=== PATIENT | male | born 1960 | race Caucasian/White ===

== ENCOUNTER 2020-11-01 08:49 | Inpatient (IN) | payer MEDICARE, SELFPAY ==
[2020-11-01] VITALS (17 sets, daily range): BP systolic 116–142; BP diastolic 62–81; PULSE 79–103; RESP 19–34; TEMP 36.1–37.2; O2SAT 88–996; BMI 25.6; BMI 25.9
--- NOTE | 2020-11-01 09:10 | EKG12_ITS ---
Test Reason : SOB Blood Pressure : / mmHG Vent. Rate : 092 BPM Atrial Rate : 092 BPM P-R Int : 162 ms QRS Dur : 080 ms QT Int : 476 ms P-R-T Axes : 045 000 048 degrees QTc Int : 588 ms Normal sinus rhythm Prolonged QT Abnormal ECG Confirmed by LONG JONES, ELIANA ([id number]), editor city [place]ITAL ([id number]) on 11/08/2020 10:28:30 AM Referred By: CHADWICK Confirmed By:ROBBY ALVES MD
--- NOTE | 2020-11-01 09:11 | CT_ITS ---
STUDY: CTA CHEST REASON FOR EXAM: Male, 60 years old. SOB, COUGH, CHILLS X 3 DAYS RADIATION DOSAGE (If Supplied By Facility): CTDIvol = ( 10.97 ) mGy, DLP = ( 494.89 ) mGycm TECHNIQUE: The examination was performed with the intravenous administration of IV 100mL Isovue-370. Post-processing of the angiographic images was performed, with multiplanar reformation and 3D reconstruction. Individualized dose optimization techniques were used for this CT. COMPARISON: None. FINDINGS: Normal enhancement of the main pulmonary artery and right and left pulmonary arteries. Normal enhancement of the bilateral peripheral pulmonary arteries. There is no demonstrated pulmonary embolism. Normal thoracic aorta and visualized great vessels. There is no demonstrated aortic dissection. Normal heart and pericardium. There are visualized mediastinal lymph nodes, which are within normal size limits, and with normal morphology. There are bilateral hilar lymph nodes, which are normal in size and morphology. Normal visualized trachea and bronchi. Multiple patchy areas of groundglass appearance in both lungs worse in the lower lobes. This is more pronounced in the right lower lobe and right middle lobe. Mild degree of emphysematous changes in both lungs worse in the upper lobes. Normal pleura. Normal chest wall structures. There are degenerative changes of thoracic spine. Small hiatal hernia. CT/CTA Chest W/WO Contrast IMPRESSION: Diffuse bilateral groundglass appearance in keeping with early pneumonic infiltrate involving both lungs worse in the lower lobes and more prominent on the right side. Pneumonic infiltrates related to Covid 19 should be ruled out. No evidence of pulmonary emboli. Electronically Signed: Octavio Jasso, at 10:49 EST , Service support ,
--- NOTE | 2020-11-01 09:12 | ED.VIS.GEN ---
History of Present Illness Chief Complaint: Shortness of Breath Informant: Patient Narrative: 60-year-old male with chief complaint of dyspnea. Patient went to urgent care today and was referred to the emergency department. He notes 3 days of chills and body aches. States he was having a cough but by taking OTC cold medicine that has improved. However he states that he continues to have shortness of breath. He states he has been having difficulty sleeping because of it. No chest pain. He notes some rhinorrhea that is very mild but does note a sore throat. He notes intermittent diarrhea for about 1 month. Patient admits to some mild anorexia. He reports that he is a daily smoker but for the past week has not been smoking. He denies any known medical problems. He had a heart catheterization in the past that was normal. Past Medical History - Allergies and Home Meds Allergies/Adverse Reactions: Allergies No Known Allergies Allergy (Verified 11/01/20 08:51) Past Medical History: None Surgical History: noncontributory Smoking Status: Current every day smoker Drugs: None - Family History Paternal Family History: Reports: Cancer - of esophageal cancer, Heart Disease - had bypass surgery Review of Systems General: Reports: Chills, Fever, Malaise, Subjective. Denies: Sweats Eyes: Denies: Visual changes - bilaterally, Diplopia ENT: Reports: Sore throat. Denies: Rhinorrhea Cardiovascular: Denies: Chest pain, Palpitations Respiratory: Reports: Dyspnea, Cough. Denies: Dyspnea on exertion Gastrointestinal: Denies: Abdominal pain, Nausea, Vomiting, Diarrhea, Melena, Hematochezia Genitourinary: Denies: Dysuria, Hematuria, Frequency Musculoskeletal: Reports: Myalgias. Denies: Back pain, Extremity Pain Skin: Denies: Rash, Wounds Neurological: Denies: Headache, Weakness, Numbness Physical Exam Vital Signs/Narrative: Vital Signs Temp Pulse Resp BP Pulse Ox 11/01/20 08:50 97.2 F L 103 H 24 H 116/62 88 Inital Vital Signs reviewed: Yes General: Well nourished, Well developed, No Acute Distress Head: Normocephalic, Atraumatic Eyes: Perrl, EOMI ENT: Moist mucous membranes, No rhinorrhea Neck: Supple, Nontender Cardiovascular: Regular rate, No murmurs, Tachycardia Respiratory: CTA bilaterally, Chest nontender, - - Patient is tachypneic but not in distress. Abdomen: Soft, Nontender, Nondistended, Normal bowel sounds Back: Nontender, Normal Inspection Extremities: Nontender, No edema Skin: Normal color, No rash Neurological: Alert, Oriented x3, Cranial nerves II-XII grossly intact, Normal Strength, Normal Sensation Psychological: Normal affect, Normal Mood Diagnostic/Tx/Re-eval Clinical Impression(s) from Imaging Studies Chest CTA 11/01/20 09:11 IMPRESSION: Diffuse bilateral groundglass appearance in keeping with early pneumonic infiltrate involving both lungs worse in the lower lobes and more prominent on the right side. Pneumonic infiltrates related to Covid 19 should be ruled out. No evidence of pulmonary emboli. Electronically Signed: Octavio Louisa, at 10:49 EST , Service support , Laboratory Last Values WBC 13.0 K/mm3 (4.4-11.0) H 11/01/20 09:39 RBC 4.14 M/mm3 (4.6-6.2) L 11/01/20 09:39 Hgb 13.6 g/dL (13.0-16.5) 11/01/20 09:39 Hct 38.6 % (40-54) L 11/01/20 09:39 MCV 93.2 fL (80-94) 11/01/20 09:39 MCH 32.9 pg (27.0-32.0) H 11/01/20 09:39 MCHC 35.2 g/dL (32-36) 11/01/20 09:39 RDW Std Deviation 44.6 fl (35.1-43.9) H 11/01/20 09:39 RDW Coeff of Billy 13.1 % (11.6-14.6) 11/01/20 09:39 Plt Count 218 K/mm3 (150-450) 11/01/20 09:39 MPV 11.7 fl (6.2-12.0) 11/01/20 09:39 Immature Gran % (Auto) 0.900 % (0.0-0.9) 11/01/20 09:39 Neut % (Auto) 87.3 % (47-70) H 11/01/20 09:39 Lymph % (Auto) 6.5 % (19-41) L 11/01/20 09:39 Parker % (Auto) 4.7 % (0-10) 11/01/20 09:39 Eos % (Auto) 0.4 % (0-5) 11/01/20 09:39 Baso % (Auto) 0.2 % (0-1) 11/01/20 09:39 Absolute Neuts (auto) 11.4 X10^3/uL (2.0-7.7) H 11/01/20 09:39 Absolute Lymphs (auto) 0.84 X10^3/uL (0.83-4.51) 11/01/20 09:39 Nucleated RBC % 0 % (0-5) 11/01/20 09:39 Sodium 137 mmol/L (136-145) 11/01/20 09:39 Potassium 3.1 mmol/L (3.5-5.1) L 11/01/20 09:39 Chloride 102 mmol/L (98-107) 11/01/20 09:39 Carbon Dioxide 28.0 mmol/L (21.0-32.0) 11/01/20 09:39 Anion Gap 7 (5-15) 11/01/20 09:39 BUN 13 mg/dL (7-18) 11/01/20 09:39 Creatinine 0.68 mg/dL (0.70-1.30) L 11/01/20 09:39 Estim Creat Clear Calc 123.63 ml/min 11/01/20 09:39 Est GFR (MDRD) Af Amer 153 mL/min (>60) 11/01/20 09:39 Est GFR (MDRD) Non-Af 126 mL/min (>60) 11/01/20 09:39 BUN/Creatinine Ratio 19.2 RATIO (10-20) 11/01/20 09:39 Glucose 122 mg/dL (74-106) H 11/01/20 09:39 Lactic Acid 1.2 mmol/L (0.4-1.9) 11/01/20 09:39 Calcium 8.4 mg/dL (8.5-10.1) L 11/01/20 09:39 Total Bilirubin 0.80 mg/dL (0.20-1.00) 11/01/20 09:39 AST 37 U/L (15-37) 11/01/20 09:39 ALT 24 U/L (16-61) 11/01/20 09:39 Alkaline Phosphatase 90 U/L (45-117) 11/01/20 09:39 Troponin I < 0.015 ng/mL (<0.045) 11/01/20 09:39 Total Protein 6.7 g/dL (6.4-8.2) 11/01/20 09:39 Albumin 2.7 g/dL (3.2-5.0) L 11/01/20 09:39 Globulin 4.0 g/dL (2.2-4.2) 11/01/20 09:39 Albumin/Globulin Ratio 0.7 RATIO (0.9-2.4) L 11/01/20 09:39 Procalcitonin 0.27 ng/mL (0.00-0.09) H 11/01/20 09:39 - EKG Initial EKG Interpretation: Sinus Rhythm - EKG demonstrates a normal sinus rhythm at a rate of 92 without concerning features of ectopy or ACS. - Medical Decision Making Patient's Covid antigen test is negative. His PCR is also negative. His white count is elevated at 13 and he has an elevated procalcitonin level. Lactic acid is normal. CTA demonstrates bilateral infiltrates. I still have a high suspicion for Covid and so I ordered the PCR. Because of the elevated white blood cell count is fever and elevated procalcitonin and the CTA findings I ordered Rocephin azithromycin. I think the patient would be best served inpatient evaluation and treatment at this time. He has been receiving supplemental oxygen at 3 L nasal cannula.. Patient will also receive a dose of Decadron. Plan is admission. ED Disposition - Plan for ED Patient: Diagnosis: Sepsis, Pneumonia, Hypokalemia
[2020-11-01] MEDS: 0.9% Normal Saline 1,000 ML 999 ML IV (09:41)
[2020-11-01] MEDS: Ketorolac 15 MG/ML Vial IV (09:41)
[2020-11-01 09:59] LABS: Absolute Lymphocyte Count 0.84 X10^3/uL (0.83-4.51); Absolute Neutrophil Count 11.4 X10^3/uL (2.0-7.7); Basophil# 0.03 X10^3/uL; Basophil% 0.2 % (0-1); Eosinophil# 0.05 X10^3/uL; Eosinophils% 0.4 % (0-5); Hematocrit 38.6 % (40-54); Hemoglobin 13.6 g/dL (13.0-16.5); Lymphocyte # 0.84 X10^3/ul (4.0); Lymphocyte % 6.5 % (19-41); Mean Corp Hgb Conc 35.2 g/dL (32-36); Mean Corpuscular Hgb 32.9 pg (27.0-32.0); Mean Corpuscular Volume 93.2 fL (80-94); Mean Platelet Vol. 11.7 fl (6.2-12.0); Monocyte# 0.61 X10^3/uL; Monocyte% 4.7 % (0-10); NRBC Flagged by Analyzer 0 % (0-5); Neutrophil # 11.37 X10^3/uL (2.7-7.7); Neutrophil % 87.3 % (47-70); Platelet Count 218 K/mm3 (150-450); RBC Distribution Width CV 13.1 % (11.6-14.6); RBC Distribution Width SD 44.6 fl (35.1-43.9); Red Blood Count 4.14 M/mm3 (4.6-6.2)
[2020-11-01 10:16] LABS: Lactic Acid 1.2 mmol/L (0.4-1.9)
[2020-11-01 10:17] LABS: ALB/GLOB Ratio 0.7 RATIO (0.9-2.4); AST(SGOT) 37 U/L (15-37); Alanine Aminotransfer ALT/SGPT 24 U/L (16-61); Albumin, Serum 2.7 g/dL (3.2-5.0); Alkaline Phosphatase 90 U/L (45-117); Anion Gap 7 (5-15); BUN 13 mg/dL (7-18); BUN/Creat Ratio 19.2 RATIO (10-20); Calcium,Total 8.4 mg/dL (8.5-10.1); Chloride 102 mmol/L (98-107); Creatinine, Serum 0.68 mg/dL (0.70-1.30); EST Glomerular Filtration Rate 126 mL/min (>60); Est Glom Filt Rate - Afr Amer 153 mL/min (>60); Estimated Creatinine Clearance 123.63 ml/min; Glucose 122 mg/dL (74-106); Potassium 3.1 mmol/L (3.5-5.1); Protein, Total 6.7 g/dL (6.4-8.2); Sodium Level 137 mmol/L (136-145)
[2020-11-01 10:18] LABS: Procalcitonin 0.27 ng/mL (0.00-0.09)
[2020-11-01] MEDS: Ceftriaxone 1 GM/50 ML BAG IV (11:26)
--- NOTE | 2020-11-01 11:32 | NURSING ---
MS2 COVID JULIA PNEUMONIA
[2020-11-01 11:50] LABS: Magnesium 2.3 mg/dL (1.6-2.6)
--- NOTE | 2020-11-01 12:26 | ED.RN ---
called and informed of pt admission
[2020-11-01] MEDS: dexAMETHasone 4 MG Tablet 6 MG PO (12:27)
--- NOTE | 2020-11-01 12:32 | HP.PCM_ITS ---
Problem List (1) Pneumonia due to COVID-19 virus Status: Acute (2) Sepsis Status: Acute (3) Pneumonia Status: Acute (4) Depression Status: Chronic (5) Anxiety Status: Chronic (6) Tobacco use disorder Status: Chronic (7) Sinus bradycardia Status: Chronic (8) Malaise and fatigue Status: Chronic (9) Hypokalemia Status: Acute History of Present Illness Date of Admission: 11/01/20 Chief Complaint: Shortness of breath for 3 days along with cough The patient is a 60 year old M with history of chronic smoking about a pack per day since teenage came to ED for shortness of breath/difficulty breathing and chills along with muscle aches for 3 days. Started having cough for about 3 weeks which initially was dry and now productive with clear sputum. Patient also complained of feeling shakes and chills. Triage vitals shows respiratory rate 24/min, pulse ox 88% on room air temperature 97.2 and heart rate 103 per note. Mild leukocytosis 37,000 with leukocytosis and mild lymphopenia. K3.1. Procalcitonin elevated 0.27. Lactic acid 1.2, magnesium 2.3. Rapid SARS-CoV-2 antigen negative and COVID-[address] chest individually reviewed and shows diffuse diffuse groundglass opacity predominantly in lower lobes, more prominent on the right side in pattern of COVID-19 pneumonia. ] Past Medical History Past Medical History (Chronic Problems): Chronic Problems Depression (Chronic) Anxiety (Chronic) Tobacco use disorder (Chronic) Sinus bradycardia (Chronic) Malaise and fatigue (Chronic) Allergies No Known Allergies Allergy (Verified 11/01/20 08:51) Home Medications: Ambulatory Orders Medication Instructions Recorded Citalopram [Celexa] 80 mg PO DAILY 11/01/20 Quetiapine Fumarate [Seroquel] 400 mg PO QHS 11/01/20 busPIRone [Buspar] 15 mg PO TID 11/01/20 Surgical History: noncontributory Smoking Status: Heavy Smoker (>10/day) Drugs: None - *Family History Paternal History Items: Cancer - of esophageal cancer, Heart Disease - had bypass surgery Review of Systems Constitutional: Reports: Chills, Fever HEENT: Denies: Head Aches, Sinus Congestion, Sinus Drainage Cardiovascular: Denies: Chest Pain, Palpitations Respiratory: Reports: Cough, Shortness of Breath, Shortness of breath upon exertion, Sputum production Gastrointestinal: Denies: Abdominal Pain, Nausea, Vomiting Genitourinary: Denies: Dysuria, Frequency, Hematuria Musculoskeletal: Denies: Joint Pain, Joint Tenderness Skin: Denies: Rash, Wounds Neurological: Denies: Numbness, Tingling, Focal weakness Psychiatric: Denies: Anxiety, Depression, Homicidal Ideations, Suicidal Ideatio ns Hematologic/ Lymphatic: Denies: Easy Bruising, Easy Bleeding VTE Information - Inpt Only VTE Present on Admission: No VTE Mechan Device Prophylaxis: None VTE Pharm Prophylaxis ordered?: Yes Patient Problems: Active and Suspected Problems Sepsis (Acute) Pneumonia (Acute) Pneumonia due to COVID-19 virus (Acute) Hypokalemia (Acute) - Physical Exam Vitals/I&O's: Vital Signs Temp Pulse Resp BP Pulse Ox 97.6 F L 91 33 H 140/74 H 94 11/01/20 12:21 11/01/20 12:21 11/01/20 12:21 11/01/20 12:21 11/01/20 12:21 Oxygen Flow Rate (L/min) 2 Oxygen Delivery Method Nasal Cannula Weight: 189 lb Body Mass Index (BMI) 25.6 Intake and Output for Last 24 Hours 10/30/20 10/31/20 11/01/20 23:59 23:59 23:59 Intake Total 1050 / 1050 Balance 1050 / 1050 General: Alert, Oriented x3, Cooperative HEENT: Atraumatic, PERRLA, EOMI, Normocephalic Neck: Supple, No JVD, Negative Carotid Bruits Lungs: Diminished - Air entry diminished in bilateral lower lobes, Rhonchi - Bilateral expiratory rhonchi present, Short of Breath, Tachypneic Cardiovascular: Regular rate, Regular Rhythm, Normal S1, Normal S2, No murmurs Abdomen: Bowel Sounds Present, Soft, Non Tender, Non-Distended, - - : No renal angle or suprapubic tenderness. Urine output dark yellow. Denies new lower urinary tract symptoms including dysuria Extremities: No edema, Capillary Refill Less than 3 Seconds Skin: No rashes, No breakdown Musculoskeletal: No Tenderness to Palpation of Joints or Extremities Neurological: Cranial nerves II-XII grossly intact Psych/Mental Status: Normal Affect, Appropriate Microbiology Past 72 Hours 11/01/20 09:21 Mucosa - Nose SARS-CoV-2 Antigen (Rapid) - Final 11/01/20 09:21 Mucosa - Nose Influenza Types A,B Direct FA (LINCOLN) - Final Laboratory Results 11/01/20 09:39: WBC 13.0 H, RBC 4.14 L, Hgb 13.6, Hct 38.6 L, MCV 93.2, MCH 32.9 H, MCHC 35.2, RDW Std Deviation 44.6 H, RDW Coeff of Billy 13.1, Plt Count 218, MPV 11.7, Immature Gran % (Auto) 0.900, Neut % (Auto) 87.3 H, Lymph % (Auto) 6.5 L, [place] % (Auto) 4.7, Eos % (Auto) 0.4, Baso % (Auto) 0.2, Absolute Neuts (auto) 11.4 H, Absolute Lymphs (auto) 0.84, Nucleated RBC % 0 11/01/20 09:39: Sodium 137, Potassium 3.1 L, Chloride 102, Carbon Dioxide 28.0, Anion Gap 7, BUN 13, Creatinine 0.68 L, Estim Creat Clear Calc 123.63, Est GFR (MDRD) Af Amer 153, Est GFR (MDRD) Non-Af 126, BUN/Creatinine Ratio 19.2, Glucose 122 H, Calcium 8.4 L, Total Bilirubin 0.80, AST 37, ALT 24, Alkaline Phosphatase 90, Troponin I < 0.015, Total Protein 6.7, Albumin 2.7 L, Globulin 4.0, Albumin/Globulin Ratio 0.7 L 11/01/20 09:39: Lactic Acid 1.2 11/01/20 09:39: Procalcitonin 0.27 H 11/01/20 09:39: Magnesium 2.3 11/01/20 11:21: COVID-19 (ELISE) Pending Current Medications Potassium Chloride (Potassium Chloride 20 Meq Tablet) 40 meq PO Q3H JOSE A Stop: 11/01/20 14:31 Assessment/Plan All Active Problems Sepsis (Acute) Pneumonia (Acute) Pneumonia due to COVID-19 virus (Acute) Hypokalemia (Acute) The patient is a 60 year old M with history of chronic smoking about a pack per day since teenage came to ED for shortness of breath/difficulty breathing and chills along with muscle aches for 3 days. Started having cough for about 3 weeks which initially was dry and now productive with clear sputum. Patient also complained of feeling shakes and chills. Triage vitals shows respiratory rate 24/min, pulse ox 88% on room air temperature 97.2 and heart rate 103 per note. Mild leukocytosis 37,000 with leukocytosis and mild lymphopenia. K3.1. Procalcitonin elevated 0.27. Lactic acid 1.2, magnesium 2.3. 1. Bilateral pneumonia, COVID-19 pneumonia based on clinical findings and CT chest: Patient has leukocytosis with lymphopenia. Patient is being admitted on Covid cohort floor. COVID-19 PCR is pending. Discussed with ID. CT chest individually reviewed and shows diffuse diffuse groundglass opacity predominantly in lower lobes, more prominent on the right side in pattern of COVID-19 pneumonia. Started on Decadron 6 mg, remdesivir as per protocol. Patient had 1 dose of ceftriaxone and azithromycin but it seems more viral pneumonia and therefore I will hold on further antibiotics and leave the deci domonique on ID. Respiratory panel is ordered. Urinary antigens, sputum culture and blood cultures are ordered. Incentive [facility] chest physi[facility]. Inflammatory markers CRP, D-dimer, ferritin and LDH ordered. Procalcitonin mildly elevated but not in the range of severe sepsis or septic shock. 2. Chronic cigarette smoking/nicotine. 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 CT chest negative for PE. Bronchodilator albuterol ordered. Rest as mentioned above. 3. Mild hypokalemia: Magnesium is normal. Serum phosphorus ordered. 4. Other comorbidities include anxiety and depression: Patient on citalopram 80 mg daily quetiapine 400 mg nightly and BuSpar 50 mg p.o. 3 times daily. Twelve-lead EKG shows QTc interval 588 ms, NC interval 162 millisecond. Previous EKG on 01 June 2012 showed QTC 393 ms. Hold citalopram and quetiapine. Continue risperidone. Repeat EKG daily FOR 3 DAYS DVT prophylaxis: Lovenox 30 mg subcu twice daily. discontinue if platelet count drops less than 50,000 or hemoglobin less than 8 g% Living will/advanced directive/end of life care: Patient does not have living will or advanced directive. After discussion of benefits/risks procedures involved with full code, DNR CC arrest and DNR CC, the patient opted for full code Patient does want artificial life support including intubation, tube feed, [place] tilator and/chest compression, central venous catheter, vasopressor and DC shock if needed Total time spent in [id number] encounter in discussion of advanced directive 16 minutes. Clinical Impression(s) from Imaging Studies Chest CTA 11/01/20 09:11 IMPRESSION: Diffuse bilateral groundglass appearance in keeping with early pneumonic infiltrate involving both lungs worse in the lower lobes and more prominent on the right side. Pneumonic infiltrates related to Covid 19 should be ruled out. No evidence of pulmonary emboli. Inpatient E&M: 51089 Init Hosp L3
--- NOTE | 2020-11-01 13:11 | NURSING ---
MED SURG 2, COVID PNEUMONIA JULIA
[2020-11-01 13:53] LABS: Ferritin 352 ng/mL (26-388); LDH 654 U/L (87-241); Phosphorus 2.4 mg/dL (2.5-4.9)
[2020-11-01 13:58] LABS: D-Dimer Quantitative (DVT/PE) 2.23 FEU/ug/m (0.27-0.49)
[2020-11-01] MEDS: busPIRone 15 MG TABLET PO (16:12)
[2020-11-01] MEDS: 0.9% Normal Saline 1,000 ML 75 ML IV (16:13)
[2020-11-01] MEDS: Enoxaparin 30 MG/0.3 ML Syringe SC ×2 (16:21→21:25)
[2020-11-01] MEDS: busPIRone 15 MG TABLET 30 MG PO (21:25)
[2020-11-02] VITALS (10 sets, daily range): BP systolic 129–147; BP diastolic 73–82; PULSE 76–97; RESP 14–20; TEMP 36.9–37.1; O2SAT 93–94
[2020-11-02] MEDS: MELATONIN 3 MG TABLET PO ×2 (01:13→21:14)
--- NOTE | 2020-11-02 05:55 | EKG12_ITS ---
Test Reason : AM EKG Blood Pressure : / mmHG Vent. Rate : 083 BPM Atrial Rate : 083 BPM P-R Int : 150 ms QRS Dur : 078 ms QT Int : 410 ms P-R-T Axes : 051 004 050 degrees QTc Int : 481 ms Normal sinus rhythm Prolonged QT Abnormal ECG Confirmed by RICK JONES, DAMASO ([id number]), manager editorial JAIME ARRIAZA ([id number]) on 11/09/2020 8:50:38 AM Referred By: JULIA Confirmed By:DAMASO CABRERA MD
[2020-11-02 06:39] LABS: Absolute Lymphocyte Count 1.02 X10^3/uL (0.83-4.51); Absolute Neutrophil Count 13.8 X10^3/uL (2.0-7.7); Basophil# 0.03 X10^3/uL; Basophil% 0.2 % (0-1); Eosinophils% 14.5 % (0-5); Hematocrit 36.1 % (40-54); Hemoglobin 12.3 g/dL (13.0-16.5); Lymphocyte # 1.02 X10^3/ul (4.0); Lymphocyte % 5.4 % (19-41); Mean Corp Hgb Conc 34.1 g/dL (32-36); Mean Corpuscular Hgb 31.8 pg (27.0-32.0); Mean Corpuscular Volume 93.3 fL (80-94); Mean Platelet Vol. 11.5 fl (6.2-12.0); Monocyte# 1.05 X10^3/uL; Monocyte% 5.6 % (0-10); NRBC Flagged by Analyzer 0 % (0-5); Neutrophil # 13.75 X10^3/uL (2.7-7.7); Neutrophil % 73.4 % (47-70); POSITIVE DIFFERENTIAL YES; POSITIVE MORPHOLOGY YES; Platelet Count 226 K/mm3 (150-450); RBC Distribution Width CV 13.1 % (11.6-14.6); Red Blood Count 3.87 M/mm3 (4.6-6.2); White Blood Count 18.7 K/mm3 (4.4-11.0)
[2020-11-02 06:47] LABS: Eosinophil# 2.72 X10^3/uL
[2020-11-02 06:48] LABS: Differential Indicated SCAN CRITERIA MET
[2020-11-02 07:13] LABS: ALB/GLOB Ratio 0.8 RATIO (0.9-2.4); AST(SGOT) 27 U/L (15-37); Alanine Aminotransfer ALT/SGPT 23 U/L (16-61); Albumin, Serum 2.5 g/dL (3.2-5.0); Alkaline Phosphatase 98 U/L (45-117); Anion Gap 9 (5-15); BUN 13 mg/dL (7-18); BUN/Creat Ratio 22.5 RATIO (10-20); Chloride 104 mmol/L (98-107); Creatinine, Serum 0.58 mg/dL (0.70-1.30); EST Glomerular Filtration Rate 152 mL/min (>60); Est Glom Filt Rate - Afr Amer 184 mL/min (>60); Estimated Creatinine Clearance 144.94 ml/min; Glucose 121 mg/dL (74-106); Protein, Total 5.5 g/dL (6.4-8.2); Sodium Level 136 mmol/L (136-145)
[2020-11-02] MEDS: Enoxaparin 30 MG/0.3 ML Syringe SC ×2 (10:39→21:12)
[2020-11-02] MEDS: dexAMETHasone 10 MG/ML Vial 6 MG IV (10:39)
[2020-11-02] MEDS: busPIRone 15 MG TABLET 30 MG PO ×2 (10:40→21:14)
--- NOTE | 2020-11-02 11:10 | PCM.HP.ID ---
Problem List (1) Pneumonia Status: Acute Reason for Consult: suspected covid Consulted by: Dr. Carlson History of Present Illness: The patient is a 60 year old M with heavy smoking history, presented yesterday with sx startting 10/30 with cough, dyspnea, chills, headache, aches, loss of appetite. No change in taste or smell. No n/v/d. Some clear sputum. Some chest pressure. No sick contacts, no covid exposures, lives with who has been feeling fine. Covid pcr and Ag neg. Resp panel neg. Started on dex and remdesivir, O2, feeling about the same this AM. Full ROS performed and neg except as noted above. - Medical History Past Medical History (Chronic Problems): Chronic Problems Depression (Chronic) Anxiety (Chronic) Tobacco use disorder (Chronic) Sinus bradycardia (Chronic) Malaise and fatigue (Chronic) Allergies/Adverse Reactions: Allergies No Known Allergies Allergy (Verified 11/01/20 08:51) Home Medications: Ambulatory Orders Medication Instructions Recorded Buspirone HCl [Buspar] 15 mg PO TID 11/01/20 Citalopram [Celexa] 80 mg PO DAILY 11/01/20 Quetiapine Fumarate [Seroquel] 400 mg PO QHS 11/01/20 - Social History Tobacco Use: cigarettes Vital Signs Temp Pulse Resp BP Pulse Ox 98.4 F 76 14 133/76 H 93 11/02/20 08:00 11/02/20 08:00 11/02/20 08:00 11/02/20 08:00 11/02/20 08:20 Oxygen Flow Rate (L/min) 2 Oxygen Delivery Method Nasal Cannula Weight: 85.729 kg Body Mass Index (BMI) 25.9 Microbiology Past 72 Hours 11/01/20 11:21 Respiratory Panel (PCR) - Final Interface Orders 11/01/20 Unknown Legionella Antigen - Final Urine, Clean Catch Streptococcus pneumoniae Antigen (M - Final 11/01/20 09:21 SARS-CoV-2 Antigen (Rapid) - Final Mucosa - Nose Influenza Types A,B Direct FA (LINCOLN) - Final Laboratory Tests Past 24 Hrs 11/01/20 11/01/20 11/01/20 09:39 09:39 09:39 WBC RBC Hgb Hct MCV MCH MCHC RDW Std Deviation RDW Coeff of Billy Plt Count MPV Immature Gran % (Auto) Neut % (Auto) Lymph % (Auto) [place] % (Auto) Eos % (Auto) Baso % (Auto) Absolute Neuts (auto) Absolute Lymphs (auto) Nucleated RBC % Diff Path Review D-Dimer Quant (PE/DVT) 2.23 H* Sodium Potassium Chloride Carbon Dioxide Anion Gap BUN Creatinine Estim Creat Clear Calc Est GFR (MDRD) Af Amer Est GFR (MDRD) Non-Af BUN/Creatinine Ratio Glucose Calcium Phosphorus 2.4 L Magnesium 2.3 Ferritin 352 Total Bilirubin AST ALT Alkaline Phosphatase Lactate Dehydrogenase 654 H C-React Prot Ext Range 234.00 H Total Protein Albumin Globulin Albumin/Globulin Ratio COVID-19 (ELISE) 11/01/20 11/02/20 11/02/20 11:21 06:30 06:30 WBC 18.7 H RBC 3.87 L Hgb 12.3 L Hct 36.1 L MCV 93.3 MCH 31.8 MCHC 34.1 RDW Std Deviation 45.0 H RDW Coeff of Billy 13.1 Plt Count 226 MPV 11.5 Immature Gran % (Auto) 0.900 Neut % (Auto) 73.4 H Lymph % (Auto) 5.4 L [place] % (Auto) 5.6 Eos % (Auto) 14.5 H Baso % (Auto) 0.2 Absolute Neuts (auto) 13.8 H Absolute Lymphs (auto) 1.02 Nucleated RBC % 0 Diff Path Review May foll D-Dimer Quant (PE/DVT) Sodium 136 Potassium 4.0 Chloride 104 Carbon Dioxide 23.0 Anion Gap 9 BUN 13 Creatinine 0.58 L Estim Creat Clear Calc 144.94 Est GFR (MDRD) Af Amer 184 Est GFR (MDRD) Non-Af 152 BUN/Creatinine Ratio 22.5 H Glucose 121 H Calcium 8.0 L Phosphorus Magnesium Ferritin Total Bilirubin 0.70 AST 27 ALT 23 Alkaline Phosphatase 98 Lactate Dehydrogenase C-React Prot Ext Range Total Protein 5.5 L Albumin 2.5 L Globulin 3.0 Albumin/Globulin Ratio 0.8 L COVID-19 (ELISE) Not Detected - Other Studies Radiology: [] reviewed Other Studies: [] Route of nutrition/ use of supplements: [] Nutritional Intake: [] IV Site: [] Tsai Catheter: [] - Physical Exam General: Alert, Oriented x3, Cooperative, No apparent distress HEENT: Atraumatic, PERRLA, EOMI Neck: Supple, No Nodes Lungs: Clear to auscultation, Diminished Cardiovascular: Regular rate, Regular Rhythm Abdomen: Soft, Non Tender, Non-Distended Extremities: No edema Skin: No rashes IV Site: Peripheral, without redness Musculoskeletal: No Tenderness to Palpation of Joints or Extremities Neurological: Cranial nerves II-XII grossly intact - Assessment/Plan Antibiotics: [] Assessment/Plan: [] Active and Suspected Problems Sepsis (Acute) Pneumonia (Acute) Pneumonia due to COVID-19 virus (Acute) Hypokalemia (Acute) suspected covid with hypoxia and lactic acidosis - sx started 10/30. Covid pcr and Ag neg here. Neg resp viral pcr panel. UAg neg. No lymphopenia. Mild PCT elevation. Elevated d-dimer, LDH, CRP. Normal ferritin. Normal trop. CT neg for PE but bilat groundglass infiltrate. Started on dex and remdesivir. Not feeling much better this Am. Will change dex to po. Sputum cx pending. Will follow, thank you
[2020-11-02 13:51] LABS: Pathologist Review Reviewed
--- NOTE | 2020-11-02 14:12 | PCM.PN.HOSP ---
Patient Problems: Active and Suspected Problems Sepsis (Acute) Pneumonia (Acute) Pneumonia due to COVID-19 virus (Acute) Hypokalemia (Acute) Reason for Visit: Follow-up for COVID-19 pneumonia Objective: No fever but patient is on 2 L of oxygen. Patient has severe anxiety and depression and requested for Seroquel. Physical exam General: Alert, Oriented x3, Cooperative HEENT: Atraumatic, PERRLA, EOMI, Normocephalic Neck: Supple, No JVD, Negative Carotid Bruits Lungs: Air entry diminished in bilateral lower lobes, no crepitations or rhonchi. Cardiovascular: Regular rate, Regular Rhythm, Normal S1, Normal S2, No murmurs Abdomen: Bowel Sounds Present, Soft, Non Tender, Non-Distended : No renal angle or suprapubic tenderness. Spontaneous voiding. Denies dysuria. Extremities: No edema, Capillary Refill Less than 3 Seconds Skin: No rashes, No breakdown Musculoskeletal: No Tenderness to Palpation of Joints or Extremities Neurological: Cranial nerves II-XII grossly intact Psych/Mental Status: Mild anxious, looks depressed. Vitals/I&O's: Vital Signs Temp Pulse Resp BP Pulse Ox 98.4 F 85 16 143/82 H 94 11/02/20 13:14 11/02/20 13:26 11/02/20 13:14 11/02/20 13:14 11/02/20 13:14 Oxygen Flow Rate (L/min) 2 Oxygen Delivery Method Nasal Cannula Weight: 189 lb 0.001 oz Body Mass Index (BMI) 25.9 Intake and Output for Last 24 Hours 10/31/20 11/01/20 11/02/20 23:59 23:59 23:59 Intake Total 2388.75 / 2388.75 1646.25 / 1646.25 Output Total 250 / 250 Balance 2388.75 / 2388.75 1396.25 / 1396.25 Microbiology Past 72 Hours 11/01/20 11:21 Interface Orders Respiratory Panel (PCR) - Final 11/01/20 Unknown Urine, Clean Catch Legionella Antigen - Final 11/01/20 Unknown Urine, Clean Catch Streptococcus pneumoniae Antigen (M - Final 11/01/20 09:21 Mucosa - Nose SARS-CoV-2 Antigen (Rapid) - Final 11/01/20 09:21 Mucosa - Nose Influenza Types A,B Direct FA ([facility]) - Final Laboratory Results 11/02/20 06:30: WBC 18.7 H, RBC 3.87 L, Hgb 12.3 L, Hct 36.1 L, MCV 93.3, MCH 31.8, MCHC 34.1, RDW Std Deviation 45.0 H, RDW Coeff of Billy 13.1, Plt Count 226, MPV 11.5, Immature Gran % (Auto) 0.900, Neut % (Auto) 73.4 H, Lymph % (Auto) 5.4 L, [place] % (Auto) 5.6, Eos % (Auto) 14.5 H, Baso % (Auto) 0.2, Absolute Neuts (auto) 13.8 H, Absolute Lymphs (auto) 1.02, Nucleated RBC % 0, Diff Path Review Reviewed 11/02/20 06:30: Sodium 136, Potassium 4.0, Chloride 104, Carbon Dioxide 23.0, Anion Gap 9, BUN 13, Creatinine 0.58 L, Estim Creat Clear Calc 144.94, Est GFR (MDRD) Af Amer 184, Est GFR (MDRD) Non-Af 152, BUN/Creatinine Ratio 22.5 H, Glucose 121 H, Calcium 8.0 L, Total Bilirubin 0.70, AST 27, ALT 23, Alkaline Phosphatase 98, Total Protein 5.5 L, Albumin 2.5 L, Globulin 3.0, Albumin/Globulin Ratio 0.8 L Current Medications Albuterol Sulfate (Albuterol Sulfate 8 Gm Inhaler (60 Puffs)) 2 puff INHALATION Q6H.RT JOSE A Buspirone HCl (Buspirone 15 Mg Tablet) 30 mg PO BID JOSE A Last Admin: 11/02/20 10:40 Dose: 30 mg Documented by: Dexamethasone (Dexamethasone 4 Mg Tablet) 6 mg PO DAILY JOSE A Stop: 11/10/20 10:01 Enoxaparin Sodium (Enoxaparin 30 Mg/0.3 Ml Syringe) 30 mg SC BID [facility] Last Admin: 11/02/20 10:39 Dose: 30 mg Documented by: Remdesivir 100 mg/ Sodium (Chloride) 250 mls @ 125 mls/hr IV DAILY JOSE A Stop: 11/05/20 11:59 Last Infusion: 11/02/20 12:56 Dose: Infused Documented by: Sodium Chloride () 250 mls @ 15 mls/hr IV .[id number] PRN PRN Reason: Saline Flush Sodium Chloride () 250 mls @ 15 mls/hr IV .[id number] PRN PRN Reason: Additional IVPB Infusion Melatonin (Melatonin 3 Mg Tablet) 3 mg PO QHS PRN PRN Reason: INSOMNIA Last Admin: 11/02/20 01:13 Dose: 3 mg Documented by: Quetiapine Fumarate (Quetiapine 25 Mg Tablet) 50 mg PO QHS JOSE A Sodium Chloride (0.9% Saline Lock 10 Ml Syringe) 10 - 40 ml IV UD PRN PRN Reason: SALINE FLUSH STROKE Vital Signs/Narrative: Vital Signs Temp Pulse Resp BP Pulse Ox 11/02/20 13:26 85 11/02/20 13:14 98.4 F 79 16 143/82 H 94 Medical Necessity - Tobacco Use Smoking Status: Heavy Smoker (>10/day) Tobacco Use: Cigarettes Assessment/Plan All Active Problems Sepsis (Acute) Pneumonia (Acute) Pneumonia due to COVID-19 virus (Acute) Hypokalemia (Acute) The patient is a 60 year old M with history of chronic smoking about a pack per day since teenage came to ED for shortness of breath/difficulty breathing and chills along with muscle aches for 3 days. Started having cough for about 3 weeks which initially was dry and now productive with clear sputum. Patient also complained of feeling shakes and chills. Triage vitals shows respiratory rate 24/min, pulse ox 88% on room air temperature 97.2 and heart rate 103 per note. Mild leukocytosis 37,000 with leukocytosis and mild lymphopenia. K3.1. Procalcitonin elevated 0.27. Lactic acid 1.2, magnesium 2.3. 1. Bilateral pneumonia, COVID-19 pneumonia based on clinical findings and CT chest: Patient has leukocytosis with lymphopenia. Patient is being admitted on Covid cohort floor. COVID-19 PCR is pending. Discussed with ID. CT chest individually reviewed and shows diffuse diffuse groundglass opacity predominantly in lower lobes, more prominent on the right side in pattern of COVID-19 pneumonia. 11/02: Seen by ID. Inflammatory markers are elevated, CRP 234, LDH 654. Procalcitonin 0.27. Troponin and lactic acid normal. Magnesium and phosphorus are normal. COVID-19 PCR negative. Respiratory panel negative. Seen by ID. Continue Decadron and remdesivir. 2. Chronic cigarette smoking/nicotine. 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 CT chest negative for PE. Bronchodilator albuterol ordered. Rest as mentioned above. 3. Mild hypokalemia: Magnesium is normal. Serum phosphorus ordered. 11/02: Repeat K is normal. 4. Other comorbidities include anxiety and depression: Patient on citalopram 80 mg daily quetiapine 400 mg nightly and BuSpar 15 mg p.o. 3 times daily. Twelve-lead EKG shows QTc interval 588 ms, [place] interval 162 millisecond. Previous EKG on 01 June 2012 showed QTC 393 ms. Hold citalopram and quetiapine. Continue risperidone. Repeat EKG daily FOR 3 DAYS 11/02: QTc interval 469 ms improving. To avoid antipsychotic withdrawal, started on low-dose Seroquel 50 mg daily. Patient was educated about side effects of high dose of Seroquel including prolonged QTc interval and related adverse effect of arrhythmia/sudden cardiac . DVT prophylaxis: Lovenox 30 mg subcu twice daily. discontinue if platelet count drops less than 50,000 or hemoglobin less than 8 g% Living will/advanced directive/end of life care: Patient does not have living will or advanced directive. After discussion of benefits/risks procedures involved with full code, DNR CC arrest and DNR CC, the patient opted for full code Patient does want artificial life support including intubation, tube feed, ventilator and/chest compression, central venous catheter, vasopressor and DC shock if needed Total time spent in [id number] encounter in discussion of advanced directive 16 minutes. Microbiology Past 72 Hours 11/01/20 11:21 Interface Orders Respiratory Panel (PCR) - Final 11/01/20 Unknown Urine, Clean Catch Legionella Antigen - Final 11/01/20 Unknown Urine, Clean Catch Streptococcus pneumoniae Antigen (M - Final 11/01/20 09:21 Mucosa - Nose SARS-CoV-2 Antigen (Rapid) - Final 11/01/20 09:21 Mucosa - Nose Influenza Types A,B Direct FA ([facility]) - Final Laboratory Results 11/02/20 06:30: WBC 18.7 H, RBC 3.87 L, Hgb 12.3 L, Hct 36.1 L, MCV 93.3, MCH 31.8, MCHC 34.1, RDW Std Deviation 45.0 H, RDW Coeff of Billy 13.1, Plt Count 226, MPV 11.5, Immature Gran % (Auto) 0.900, Neut % (Auto) 73.4 H, Lymph % (Auto) 5.4 L, [place] % (Auto) 5.6, Eos % (Auto) 14.5 H, Baso % (Auto) 0.2, Absolute Neuts (auto) 13.8 H, Absolute Lymphs (auto) 1.02, Nucleated RBC % 0, Diff Path Review Reviewed 11/02/20 06:30: Sodium 136, Potassium 4.0, Chloride 104, Carbon Dioxide 23.0, Anion Gap 9, BUN 13, Creatinine 0.58 L, Estim Creat Clear Calc 144.94, Est GFR (MDRD) Af Amer 184, Est GFR (MDRD) Non-Af 152, BUN/Creatinine Ratio 22.5 H, Glucose 121 H, Calcium 8.0 L, Total Bilirubin 0.70, AST 27, ALT 23, Alkaline Phosphatase 98, Total Protein 5.5 L, Albumin 2.5 L, Globulin 3.0, Albumin/Globulin Ratio 0.8 L Clinical Impression(s) from Imaging Studies Chest CTA 11/01/20 09:11 IMPRESSION: Diffuse bilateral groundglass appearance in keeping with early pneumonic infiltrate involving both lungs worse in the lower lobes and more prominent on the right side. Pneumonic infiltrates related to Covid 19 should be ruled out. No evidence of pulmonary emboli. Inpatient E&M: 87941 Subs Hosp L2
[2020-11-02] MEDS: Na Biphos/Potassium Phosphate PACKET 1 PACKET PO ×2 (15:43→21:14)
--- NOTE | 2020-11-02 16:25 | CASEMGMT ---
RN CM ASSESSMENT Intro role of CM to patient via phone. Pt is awake, alert and able to participate in assessment. He states he is independent, no care needs @ home and does not use ambulatory DME. States he plans to return home on discharge. Dagnosis: COVID 19 presumed. Test @ [facility] on 11/02/20 was negative PCP: Dr. Paredes Pharmacy: [facility] Pharm[facility] benefit: yes Insurance: [facility] [place]: Cleo Goncalves Living arrangements: states lives independently and no care needs. DME: states has a cane. No oxygen use @ home. Reviewed DME list- prefers [facility]. Pt dc goal: home DC Plan: anticipate home on dc. Rosalino BAUTISTA RN ACM
[2020-11-02] MEDS: Albuterol Sulfate 8 gm Inhaler (60 puffs) 2 PUFF INHALATION (21:12)
[2020-11-02] MEDS: QUEtiapine 25 MG Tablet 50 MG PO (21:13)
[2020-11-03] VITALS (10 sets, daily range): BP systolic 120–145; BP diastolic 67–82; PULSE 76–84; RESP 16–18; TEMP 36.6–37.1; O2SAT 92–94
--- NOTE | 2020-11-03 05:55 | EKG12_ITS ---
Test Reason : AM EKG Blood Pressure : / mmHG Vent. Rate : 080 BPM Atrial Rate : 080 BPM P-R Int : 160 ms QRS Dur : 078 ms QT Int : 404 ms P-R-T Axes : 049 012 046 degrees QTc Int : 465 ms Normal sinus rhythm Normal ECG Confirmed by RICK JONES, DAMASO ([id number]), assignment editor JAIME ARRIAZA ([id number]) on 11/09/2020 8:53:10 AM Referred By: JULIA Confirmed By:DAMASO CABRERA MD
[2020-11-03 07:11] LABS: Hematocrit 38.6 % (40-54); Hemoglobin 13.2 g/dL (13.0-16.5); Mean Corp Hgb Conc 34.2 g/dL (32-36); Mean Corpuscular Hgb 31.9 pg (27.0-32.0); Mean Corpuscular Volume 93.2 fL (80-94); Mean Platelet Vol. 11.3 fl (6.2-12.0); Platelet Count 265 K/mm3 (150-450); RBC Distribution Width CV 12.9 % (11.6-14.6); RBC Distribution Width SD 44.6 fl (35.1-43.9); Red Blood Count 4.14 M/mm3 (4.6-6.2); White Blood Count 20.3 K/mm3 (4.4-11.0)
[2020-11-03 07:44] LABS: ALB/GLOB Ratio 0.8 RATIO (0.9-2.4); AST(SGOT) 37 U/L (15-37); Alanine Aminotransfer ALT/SGPT 29 U/L (16-61); Albumin, Serum 2.6 g/dL (3.2-5.0); Alkaline Phosphatase 101 U/L (45-117); Anion Gap 8 (5-15); BUN 15 mg/dL (7-18); Calcium,Total 8.3 mg/dL (8.5-10.1); Chloride 100 mmol/L (98-107); Creatinine, Serum 0.65 mg/dL (0.70-1.30); EST Glomerular Filtration Rate 132 mL/min (>60); Est Glom Filt Rate - Afr Amer 159 mL/min (>60); Estimated Creatinine Clearance 129.33 ml/min; Globulin 3.3 g/dL (2.2-4.2); Glucose 101 mg/dL (74-106); Protein, Total 5.9 g/dL (6.4-8.2); Sodium Level 134 mmol/L (136-145)
[2020-11-03] MEDS: dexAMETHasone 4 MG Tablet 6 MG PO (08:06)
[2020-11-03] MEDS: busPIRone 15 MG TABLET 30 MG PO (08:06)
[2020-11-03] MEDS: Na Biphos/Potassium Phosphate PACKET 1 PACKET PO ×2 (08:07→21:44)
[2020-11-03] MEDS: Paroxetine 20 MG Tablet PO (13:00)
--- NOTE | 2020-11-03 15:06 | PCM.PN.HOSP ---
Patient Problems: Active and Suspected Problems Sepsis (Acute) Pneumonia (Acute) Pneumonia due to COVID-19 virus (Acute) Hypokalemia (Acute) Reason for Visit: Follow-up for acute COVID-19 pneumonia. Objective: No fever or chills. Patient has shortness of breath on exertion although he is good at rest. On 2 L of oxygen at rest. Patient slept good yesterday after Seroquel. Physical exam General: Alert, Oriented x3, Cooperative HEENT: Atraumatic, PERRLA, EOMI, Normocephalic Oral: No Gingival or Mucosal Lesions/ Ulcerations Neck: Supple, No JVD, Negative Carotid Bruits Lungs: Air entry diminished in bilateral lung bases. No crepitations or rhonchi. Cardiovascular: Regular rate, Regular Rhythm, Normal S1, Normal S2, No murmurs Abdomen: Bowel Sounds Present, Soft, Non Tender, Non-Distended : No renal angle tenderness. No suprapubic tenderness. Spontaneous voiding, clear urine. Extremities: No edema, Capillary Refill Less than 3 Seconds Skin: No rashes, No breakdown Musculoskeletal: No Tenderness to Palpation of Joints or Extremities Neurological: Cranial nerves II-XII grossly intact, Deep Tendon Reflexes 2+/4 and Symmetrical, Neuro grossly intact Psych/Mental Status: Mild anxious and restless. Vitals/I&O's: Vital Signs Temp Pulse Resp BP Pulse Ox 98.7 F 81 18 135/81 H 94 11/03/20 08:03 11/03/20 08:03 11/03/20 08:03 11/03/20 08:03 11/03/20 08:03 Oxygen Flow Rate (L/min) 2 Oxygen Delivery Method Nasal Cannula Weight: 189 lb 0.001 oz Body Mass Index (BMI) 25.9 Intake and Output for Last 24 Hours 11/01/20 11/02/20 11/03/20 23:59 23:59 23:59 Intake Total 2388.75 / 2388.75 1646.25 / 1646.25 750 / 750 Output Total 250 / 250 450 / 450 Balance 2388.75 / 2388.75 1396.25 / 1396.25 300 / 300 Microbiology Past 72 Hours 11/01/20 09:32 Blood Culture (Wb) - Left Forearm Blood Culture - Preliminary No growth in 48 hours. 11/01/20 09:39 Blood Culture (Wb) - Anticubital Left Blood Culture - Preliminary No growth in 48 hours. 11/02/20 03:05 Sputum, Expectorated/Coughed Gram Stain - Final 11/02/20 03:05 Sputum, Expectorated/Coughed Respiratory Culture - Preliminary Appears to be normal respiratory roberto. Further studies to follow. 11/01/20 11:21 Interface Orders Respiratory Panel (PCR) - Final 11/01/20 Unknown Urine, Clean Catch Legionella Antigen - Final 11/01/20 Unknown Urine, Clean Catch Streptococcus pneumoniae Antigen (M - Final 11/01/20 09:21 Mucosa - Nose SARS-CoV-2 Antigen (Rapid) - Final 11/01/20 09:21 Mucosa - Nose Influenza Types A,B Direct FA ([facility]) - Final Laboratory Results 11/03/20 06:50: WBC 20.3 H, RBC 4.14 L, Hgb 13.2, Hct 38.6 L, MCV 93.2, MCH 31.9, MCHC 34.2, RDW Std Deviation 44.6 H, RDW Coeff of Billy 12.9, Plt Count 265, MPV 11.3 11/03/20 06:50: Sodium 134 L, Potassium 4.0, Chloride 100, Carbon Dioxide 26.0, Anion Gap 8, BUN 15, Creatinine 0.65 L, Estim Creat Clear Calc 129.33, Est GFR (MDRD) Af Amer 159, Est GFR (MDRD) Non-Af 132, BUN/Creatinine Ratio 23.0 H, Glucose 101, Calcium 8.3 L, Total Bilirubin 0.80, AST 37, ALT 29, Alkaline Phosphatase 101, Total Protein 5.9 L, Albumin 2.6 L, Globulin 3.3, Albumin/Globulin Ratio 0.8 L Current Medications Albuterol Sulfate (Albuterol Sulfate 8 Gm Inhaler (60 Puffs)) 2 puff INHALATION Q6H.RT [facility] Last Admin: 11/02/20 21:12 Dose: 2 puff Documented by: Buspirone HCl (Buspirone 15 Mg Tablet) 15 mg PO TID [facility] Last Admin: 11/03/20 12:57 Dose: Not Given Documented by: Dexamethasone (Dexamethasone 4 Mg Tablet) 6 mg PO DAILY [facility] Stop: 11/10/20 10:01 Last Admin: 11/03/20 08:06 Dose: 6 mg Documented by: Enoxaparin Sodium (Enoxaparin 30 Mg/0.3 Ml Syringe) 30 mg SC BID [facility] Last Admin: 11/03/20 08:07 Dose: Not Given Documented by: Remdesivir 100 mg/ Sodium (Chloride) 250 mls @ 125 mls/hr IV DAILY [facility] Stop: 11/05/20 11:59 Last Infusion: 11/03/20 14:32 Dose: Infused Documented by: Sodium Chloride () 250 mls @ 15 mls/hr IV .[id number] PRN PRN Reason: Saline Flush Sodium Chloride () 250 mls @ 15 mls/hr IV .[id number] PRN PRN Reason: Additional IVPB Infusion Melatonin (Melatonin 3 Mg Tablet) 3 mg PO QHS PRN PRN Reason: INSOMNIA Last Admin: 11/02/20 21:14 Dose: 3 mg Documented by: Paroxetine HCl (Paroxetine 20 Mg Tablet) 20 mg PO DAILY [facility] Last Admin: 11/03/20 13:00 Dose: 20 mg Documented by: Potassium Phos/Sodium Phos (Na Biphos/Potassium Phosphate Packet) 1 packet PO BID [facility] Stop: 11/04/20 15:01 Last Admin: 11/03/20 08:07 Dose: 1 packet Documented by: Quetiapine Fumarate (Quetiapine 25 Mg Tablet) 50 mg PO QHS [facility] Last Admin: 11/02/20 21:13 Dose: 50 mg Documented by: Sodium Chloride (0.9% Saline Lock 10 Ml Syringe) 10 - 40 ml IV UD PRN PRN Reason: SALINE FLUSH Medical Necessity - Tobacco Use Smoking Status: Heavy Smoker (>10/day) Tobacco Use: Cigarettes Assessment/Plan All Active Problems Sepsis (Acute) Pneumonia (Acute) Pneumonia due to COVID-19 virus (Acute) Hypokalemia (Acute) The patient is a 60 year old M with history of chronic smoking about a pack per day since teenage came to ED for shortness of breath/difficulty breathing and chills along with muscle aches for 3 days. Started having cough for about 3 weeks which initially was dry and now productive with clear sputum. Patient also complained of feeling shakes and chills. Triage vitals shows respiratory rate 24/min, pulse ox 88% on room air temperature 97.2 and heart rate 103 per note. Mild leukocytosis 37,000 with leukocytosis and mild lymphopenia. K3.1. Procalcitonin elevated 0.27. Lactic acid 1.2, magnesium 2.3. 1. Bilateral pneumonia, COVID-19 pneumonia based on clinical findings and CT chest: Patient has leukocytosis with lymphopenia. Patient is being admitted on Covid cohort floor. COVID-19 PCR is pending. Discussed with ID. CT chest individually reviewed and shows diffuse diffuse groundglass opacity predominantly in lower lobes, more prominent on the right side in pattern of COVID-19 pneumonia. 11/02: Seen by ID. Inflammatory markers are elevated, CRP 234, LDH 654. Procalcitonin 0.27. Troponin and lactic acid normal. Magnesium and phosphorus are normal. COVID-19 PCR negative. Respiratory panel negative. Seen by ID. Continue Decadron and remdesivir. 11/03: Patient has leukocytosis 20,000 with lymphopenia. Low albumin 2.6. 2. Chronic cigarette smoking/nicotine. 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 CT chest negative for PE. Bronchodilator albuterol ordered. Rest as mentioned above. 3. Mild hypokalemia: Magnesium is normal. Serum phosphorus ordered. 11/02: Repeat K is normal. 4. Other comorbidities include anxiety and depression: Patient on citalopram 80 mg daily quetiapine 400 mg nightly and BuSpar 15 mg p.o. 3 times daily. Twelve-lead EKG shows QTc interval 588 ms, [place] interval 162 millisecond. Previous EKG on 01 June 2012 showed QTC 393 ms. Hold citalopram and quetiapine. Continue risperidone. Repeat EKG daily FOR 3 DAYS 11/02: QTc interval 469 ms improving. To avoid antipsychotic withdrawal, started on low-dose Seroquel 50 mg daily. Patient was educated about side effects of high dose of Seroquel including prolonged QTc interval and related adverse effect of arrhythmia/sudden cardiac . 11/03: QTc interval improved. 430 ms. Patient agreed for Paxil and started on Paxil 20 mg daily. DVT prophylaxis: Lovenox 30 mg subcu twice daily. discontinue if platelet count drops less than 50,000 or hemoglobin less than 8 g% Living will/advanced directive/end of life care: Patient does not have living will or advanced directive. After discussion of benefits/risks procedures involved with full code, DNR CC arrest and DNR CC, the patient opted for full code Patient does want artificial life support including intubation, tube feed, ventilator and/chest compression, central venous catheter, vasopressor and DC shock if needed Total time spent in [id number] encounter in discussion of advanced directive 16 minutes. Microbiology Past 72 Hours 11/01/20 09:32 Blood Culture (Wb) - Left Forearm Blood Culture - Preliminary No growth in 48 hours. 11/01/20 09:39 Blood Culture (Wb) - Anticubital Left Blood Culture - Preliminary No growth in 48 hours. 11/02/20 03:05 Sputum, Expectorated/Coughed Gram Stain - Final 11/02/20 03:05 Sputum, Expectorated/Coughed Respiratory Culture - Preliminary Appears to be normal respiratory roberto. Further studies to follow. 11/01/20 11:21 Interface Orders Respiratory Panel (PCR) - Final 11/01/20 Unknown Urine, Clean Catch Legionella Antigen - Final 11/01/20 Unknown Urine, Clean Catch Streptococcus pneumoniae Antigen (M - Final 11/01/20 09:21 Mucosa - Nose SARS-CoV-2 Antigen (Rapid) - Final 11/01/20 09:21 Mucosa - Nose Influenza Types A,B Direct FA ([facility]) - Final Laboratory Results 11/03/20 06:50: WBC 20.3 H, RBC 4.14 L, Hgb 13.2, Hct 38.6 L, MCV 93.2, MCH 31.9, MCHC 34.2, RDW Std Deviation 44.6 H, RDW Coeff of Billy 12.9, Plt Count 265, MPV 11.3 11/03/20 06:50: Sodium 134 L, Potassium 4.0, Chloride 100, Carbon Dioxide 26.0, Anion Gap 8, BUN 15, Creatinine 0.65 L, Estim Creat Clear Calc 129.33, Est GFR (MDRD) Af Amer 159, Est GFR (MDRD) Non-Af 132, BUN/Creatinine Ratio 23.0 H, Glucose 101, Calcium 8.3 L, Total Bilirubin 0.80, AST 37, ALT 29, Alkaline Phosphatase 101, Total Protein 5.9 L, Albumin 2.6 L, Globulin 3.3, Albumin/Globulin Ratio 0.8 L Clinical Impression(s) from Imaging Studies Chest CTA 11/01/20 09:11 IMPRESSION: Diffuse bilateral groundglass appearance in keeping with early pneumonic infiltrate involving both lungs worse in the lower lobes and more prominent on the right side. Pneumonic infiltrates related to Covid 19 should be ruled out. No evidence of pulmonary emboli. Inpatient E&M: [id number] Subs Hosp L2
--- NOTE | 2020-11-03 16:12 | PN.ID_ITS ---
Patient Problems: Active and Suspected Problems Sepsis (Acute) Pneumonia (Acute) Pneumonia due to COVID-19 virus (Acute) Hypokalemia (Acute) Subjective: Not feeling much better. Does have changes in taste and smell. No fever. - Physical Exam Vitals/I&O's: Vital Signs Temp Pulse Resp BP Pulse Ox 98.7 F 84 18 145/82 H 94 11/03/20 15:50 11/03/20 15:50 11/03/20 15:50 11/03/20 15:50 11/03/20 15:50 Oxygen Flow Rate (L/min) 2 Oxygen Delivery Method Room Air Weight: 85.729 kg Body Mass Index (BMI) 25.9 Intake and Output for Last 24 Hours 11/01/20 11/02/20 11/03/20 23:59 23:59 23:59 Intake Total 2388.75 / 2388.75 1646.25 / 1646.25 750 / 750 Output Total 250 / 250 450 / 450 Balance 2388.75 / 2388.75 1396.25 / 1396.25 300 / 300 General: Alert, Cooperative, No apparent distress Lungs: Diminished Cardiovascular: Regular rate, Regular Rhythm Abdomen: Soft, Non Tender, Non-Distended Skin: No rashes Microbiology Past 72 Hours 11/01/20 09:32 Blood Culture (Wb) - Left Forearm Blood Culture - Preliminary No growth in 48 hours. 11/01/20 09:39 Blood Culture (Wb) - Anticubital Left Blood Culture - Preliminary No growth in 48 hours. 11/02/20 03:05 Sputum, Expectorated/Coughed Gram Stain - Final 11/02/20 03:05 Sputum, Expectorated/Coughed Respiratory Culture - Preliminary Appears to be normal respiratory roberto. Further studies to follow. 11/01/20 11:21 Interface Orders Respiratory Panel (PCR) - Final 11/01/20 Unknown Urine, Clean Catch Legionella Antigen - Final 11/01/20 Unknown Urine, Clean Catch Streptococcus pneumoniae Antigen (M - F inal 11/01/20 09:21 Mucosa - Nose SARS-CoV-2 Antigen (Rapid) - Final 11/01/20 09:21 Mucosa - Nose Influenza Types A,B Direct FA ([facility]) - Final Laboratory Results 11/03/20 06:50: WBC 20.3 H, RBC 4.14 L, Hgb 13.2, Hct 38.6 L, MCV 93.2, MCH 31.9, MCHC 34.2, RDW Std Deviation 44.6 H, RDW Coeff of Billy 12.9, Plt Count 265, MPV 11.3 11/03/20 06:50: Sodium 134 L, Potassium 4.0, Chloride 100, Carbon Dioxide 26.0, Anion Gap 8, BUN 15, Creatinine 0.65 L, Estim Creat Clear Calc 129.33, Est GFR (MDRD) Af Amer 159, Est GFR (MDRD) Non-Af 132, BUN/Creatinine Ratio 23.0 H, Glucose 101, Calcium 8.3 L, Total Bilirubin 0.80, AST 37, ALT 29, Alkaline Phosphatase 101, Total Protein 5.9 L, Albumin 2.6 L, Globulin 3.3, Albumin/Globulin Ratio 0.8 L Current Medications Albuterol Sulfate (Albuterol Sulfate 8 Gm Inhaler (60 Puffs)) 2 puff INHALATION Q6H.RT [facility] Last Admin: 11/02/20 21:12 Dose: 2 puff Documented by: Buspirone HCl (Buspirone 15 Mg Tablet) 15 mg PO TID [facility] Last Admin: 11/03/20 12:57 Dose: Not Given Documented by: Dexamethasone (Dexamethasone 4 Mg Tablet) 6 mg PO DAILY [facility] Stop: 11/10/20 10:01 Last Admin: 11/03/20 08:06 Dose: 6 mg Documented by: Enoxaparin Sodium (Enoxaparin 30 Mg/0.3 Ml Syringe) 30 mg SC BID [facility] Last Admin: 11/03/20 08:07 Dose: Not Given Documented by: Remdesivir 100 mg/ Sodium (Chloride) 250 mls @ 125 mls/hr IV DAILY [facility] Stop: 11/05/20 11:59 Last Infusion: 11/03/20 14:32 Dose: Infused Documented by: Sodium Chloride () 250 mls @ 15 mls/hr IV .[id number] PRN PRN Reason: Saline Flush Sodium Chloride () 250 mls @ 15 mls/hr IV .[id number] PRN PRN Reason: Additional IVPB Infusion Melatonin (Melatonin 3 Mg Tablet) 3 mg PO QHS PRN PRN Reason: INSOMNIA Last Admin: 11/02/20 21:14 Dose: 3 mg Documented by: Paroxetine HCl (Paroxetine 20 Mg Tablet) 20 mg PO DAILY [facility] Last Admin: 11/03/20 13:00 Dose: 20 mg Documented by: Potassium Phos/Sodium Phos (Na Biphos/Potassium Phosphate Packet) 1 packet PO BID [facility] Stop: 11/04/20 15:01 Last Admin: 11/03/20 08:07 Dose: 1 packet Documented by: Quetiapine Fumarate (Quetiapine 25 Mg Tablet) 50 mg PO QHS [facility] Last Admin: 11/02/20 21:13 Dose: 50 mg Documented by: Sodium Chloride (0.9% Saline Lock 10 Ml Syringe) 10 - 40 ml IV UD PRN PRN Reason: SALINE FLUSH Medical Necessity - Tobacco Use Smoking Status: Heavy Smoker (>10/day) Tobacco Use: Cigarettes Route of nutrition/ use of supplements: [] Nutritional Intake: [] IV Site: [] Tsai Catheter: [] - Assessment/Plan Antibiotics: [] Assessment/Plan: [] Active and Suspected Problems Sepsis (Acute) Pneumonia (Acute) Pneumonia due to COVID-19 virus (Acute) Hypokalemia (Acute) suspected covid with hypoxia and lactic acidosis - sx started 10/30. Covid pcr and Ag neg here. Neg resp viral pcr panel. UAg neg. No lymphopenia. Mild PCT elevation. Elevated d-dimer, LDH, CRP. Normal ferritin. Normal trop. CT neg for PE but bilat groundglass infiltrate. Started on dex and remdesivir. Not feeling much better this Am. Sputum cx with normal oral roberto. Will follow
[2020-11-03] MEDS: Enoxaparin 30 MG/0.3 ML Syringe SC (21:44)
[2020-11-03] MEDS: busPIRone 15 MG TABLET PO (21:45)
[2020-11-03] MEDS: QUEtiapine 25 MG Tablet 50 MG PO (21:45)
[2020-11-04] VITALS (8 sets, daily range): BP systolic 130–137; BP diastolic 74–84; PULSE 78–82; RESP 18; TEMP 36.9–37.1; O2SAT 85–93
[2020-11-04] MEDS: busPIRone 15 MG TABLET PO (05:17)
--- NOTE | 2020-11-04 05:55 | EKG12_ITS ---
Test Reason : AM EKG Blood Pressure : / mmHG Vent. Rate : 082 BPM Atrial Rate : 082 BPM P-R Int : 160 ms QRS Dur : 080 ms QT Int : 402 ms P-R-T Axes : 039 024 048 degrees QTc Int : 469 ms Normal sinus rhythm Normal ECG Confirmed by RICK JONES, DAMASO ([id number]), book editor JAIME ARRIAZA ([id number]) on 11/09/2020 8:56:17 AM Referred By: JULIA Confirmed By:DAMASO CABRERA MD
[2020-11-04 08:45] LABS: Hematocrit 40.2 % (40-54); Hemoglobin 13.8 g/dL (13.0-16.5); Mean Corp Hgb Conc 34.3 g/dL (32-36); Mean Corpuscular Hgb 31.9 pg (27.0-32.0); Mean Corpuscular Volume 93.1 fL (80-94); Mean Platelet Vol. 11.5 fl (6.2-12.0); Platelet Count 279 K/mm3 (150-450); RBC Distribution Width CV 12.9 % (11.6-14.6); RBC Distribution Width SD 44.2 fl (35.1-43.9); Red Blood Count 4.32 M/mm3 (4.6-6.2); White Blood Count 15.2 K/mm3 (4.4-11.0)
[2020-11-04 09:01] LABS: ALB/GLOB Ratio 0.7 RATIO (0.9-2.4); AST(SGOT) 37 U/L (15-37); Alanine Aminotransfer ALT/SGPT 44 U/L (16-61); Albumin, Serum 2.6 g/dL (3.2-5.0); Alkaline Phosphatase 101 U/L (45-117); Anion Gap 6 (5-15); BUN 15 mg/dL (7-18); BUN/Creat Ratio 24.3 RATIO (10-20); Calcium,Total 8.2 mg/dL (8.5-10.1); Chloride 102 mmol/L (98-107); Creatinine, Serum 0.62 mg/dL (0.70-1.30); EST Glomerular Filtration Rate 140 mL/min (>60); Est Glom Filt Rate - Afr Amer 170 mL/min (>60); Estimated Creatinine Clearance 135.59 ml/min; Globulin 3.9 g/dL (2.2-4.2); Glucose 107 mg/dL (74-106); Protein, Total 6.5 g/dL (6.4-8.2); Sodium Level 132 mmol/L (136-145)
[2020-11-04] MEDS: Enoxaparin 30 MG/0.3 ML Syringe SC (09:20)
[2020-11-04] MEDS: Paroxetine 20 MG Tablet PO (09:20)
[2020-11-04] MEDS: dexAMETHasone 4 MG Tablet 6 MG PO (09:20)
[2020-11-04] MEDS: Na Biphos/Potassium Phosphate PACKET 1 PACKET PO (09:20)
--- NOTE | 2020-11-04 09:25 | DCINST_ITS ---
- Discharge Diagnoses Current Active Problems: Current Active and Chronic Problems Sepsis (Acute) Pneumonia (Acute) Pneumonia due to COVID-19 virus (Acute) Depression (Chronic) Anxiety (Chronic) Tobacco use disorder (Chronic) Sinus bradycardia (Chronic) Malaise and fatigue (Chronic) Hypokalemia (Acute) You will use the following diet at home:: Regular Your food should be the consistency of: Regular Discharge Activity: May Not Drive - FOR 10 DAYS Call your doctor if you observe: Fever of 101 or Higher, Coldness, Increased Pain, Numbness or Tingling, Change in Color, Inability to urinate, Inability to have a bowel movement, Shortness of breath, Dizziness, Fainting spells, Swelling in the ankles, Chest pain, Prolonged hiccoughing, Increased palpitations (irregular heartbeat), Calf discomfort, Uncontrolled pain Additional Instructions: Patient had QTC prolongation, 550 ms, AR interval 162 ms on admission because of higher dose of quetiapine 400 mg at bedtime and citalopram 80 mg daily. Initially quetiapine was held and then resumed at lower dose 50 mg at bedtime. Citalopram discontinued and started on paroxetine 20 mg daily as it has noticed QTC prolongation effect. Follow-up PCP to refer to psychiatrist for better management of anxiety and depression and antipsychotic medications Allergies/Adverse Reactions: Allergies No Known Allergies Allergy (Verified 11/01/20 08:51) Medications to take at Discharge Buspirone HCl [Buspar] 15 mg PO TID 11/01/20 Dexamethasone [Decadron] 6 mg PO DAILY #7 tab 11/04/20 Paroxetine [Paxil] 20 mg PO DAILY #30 tab 11/04/20 Quetiapine Fumarate [Seroquel] 50 mg PO QHS #30 tab 11/04/20 The following prescriptions were given: Dexamethasone [Decadron] 6 mg PO DAILY #7 tab Transmission Status: Pending to [place] [id number] Paroxetine [Paxil] 20 mg PO DAILY #30 tab Transmission Status: Pending to [facility] [id number] Quetiapine Fumarate [Seroquel] 50 mg PO QHS #30 tab Transmission Status: Pending to [facility] [id number] Primary Care Physician: Sameer Paredes MD [Primary Care Provider] - Please follow up with your Primary Care Physician in: IN 2 WEEK Test Results: Test results from this visit will be discussed in further detail at your follow- up appointment, if applicable.
--- NOTE | 2020-11-04 09:29 | PCM.DC.SUM ---
Discharge Date and Diagnosis - Problem List Patient Problems: Active and Suspected Problems Sepsis (Acute) Pneumonia (Acute) Pneumonia due to COVID-19 virus (Acute) Hypokalemia (Acute) Date of Admission: 11/01/20 Date of Discharge: 11/04/20 - Primary Discharge Diagnosis Acute Problems: Active Problems Sepsis (Acute) Pneumonia (Acute) Pneumonia due to COVID-19 virus (Acute) Hypokalemia (Acute) - Secondary Discharge Diagnosis Chronic Problems: Chronic Problems Depression (Chronic) Anxiety (Chronic) Tobacco use disorder (Chronic) Sinus bradycardia (Chronic) Malaise and fatigue (Chronic) Hospital Course and Treatment Summary of Care Provided: [] The patient is a 60 year old M with history of chronic smoking about a pack per day since teenage came to ED for shortness of breath/difficulty breathing and chills along with muscle aches for 3 days. Started having cough for about 3 weeks which initially was dry and now productive with clear sputum. Patient also complained of feeling shakes and chills. Triage vitals shows respiratory rate 24/min, pulse ox 88% on room air temperature 97.2 and heart rate 103 per note. Mild leukocytosis 37,000 with leukocytosis and mild lymphopenia. K3.1. Procalcitonin elevated 0.27. Lactic acid 1.2, magnesium 2.3. 1. Bilateral pneumonia, COVID-19 pneumonia based on clinical findings and CT chest and acute hypoxic respiratory insufficiency secondary to COVID-19 pneumonia: Patient has leukocytosis with lymphopenia. Patient is being admitted on Covid cohort floor. COVID-19 PCR is pending. Discussed with ID. CT chest individually reviewed and shows diffuse diffuse groundglass opacity predominantly in lower lobes, more prominent on the right side in pattern of COVID-19 pneumonia. Patient was seen by ID. Inflammatory markers are elevated, CRP 234, LDH 654. Procalcitonin 0.27. Troponin and lactic acid normal. Magnesium and phosphorus are normal. COVID-19 PCR negative. Respiratory panel negative. Patient has leukocytosis with lymphopenia which is improving. Mild hyponatremia. Patient wants to go home. Walking pulse oximetry done Pulse ox 88% on room air, 85% on ambulation and 92% on 3 L of oxygen. Patient is ambulatory in home and in the community and requires home oxygen with portability. 2. Chronic cigarette smoking/nicotine. Early changes of COPD on CT scan: Patient never had PFT or evaluated by financial aid counselor. CT chest negative for PE. Bronchodilator albuterol ordered. Follow-up in pulmonary clinic in [address] Payne. Psychiatry was called to make an appointment. 3. Mild hypokalemia and hypophosphatemia: Magnesium is normal. Potassium and phosphate replaced. 4. Other comorbidities include anxiety and depression: Patient on citalopram 80 mg daily quetiapine 400 mg nightly and BuSpar 15 mg p.o. 3 times daily. Twelve-lead EKG shows QTc interval 588 ms, AK interval 162 millisecond. Previous EKG on 01 June 2012 showed QTC 393 ms. Hold citalopram and quetiapine. Continue risperidone. Repeat EKG on 11/02 for 469 ms, 11/03 430 ms, 11/04 for 481 ms.To avoid antipsychotic withdrawal, started on low-dose Seroquel 50 mg daily. Patient was educated about side effects of high dose of Seroquel including prolonged QTc interval and related adverse effect of arrhythmia/sudden cardiac . A prescription for Paxil 20 mg daily given as patient has severe anxiety and depression which is lowest QT prolonged standing effect among SSRIs/SRNI. Advised to follow-up with psychiatrist in 2 to 3 weeks, referred by PCP. DVT prophylaxis: Lovenox 30 mg subcu twice daily. discontinue if platelet count drops less than 50,000 or hemoglobin less than 8 g% Discharge medication reconciliation done. Discharge follow-up instructions completed. Discharge process discussed with the patient and all questions were answered to patient's satisfaction. Prescription for Decadron, Eliquis for DVT prophylaxis given. Total time spent, exact 35 minutes on discharge meds reconciliation, examination, coordination of care with nurses and ancillary staff, review of imaging and blood test and discussion with the patient on follow-up instructions Patient Problems: Active and Suspected Problems Sepsis (Acute) Pneumonia (Acute) Pneumonia due to COVID-19 virus (Acute) Hypokalemia (Acute) Objective: Mild shortness of breath on exertion otherwise good. Mild cough. Pulse ox 88% on room air, 85% on ambulation and 92% on 3 L of oxygen. Physical exam General: Alert, Oriented x3, Cooperative HEENT: Atraumatic, PERRLA, EOMI, Normocephalic Oral: No Gingival or Mucosal Lesions/ Ulcerations Neck: Supple, No JVD, Negative Carotid Bruits Lungs: Air entry diminished in bilateral lung bases. No crepitations or rhonchi. Mild hypoxia. Cardiovascular: Regular rate, Regular Rhythm, Normal S1, Normal S2, No murmurs Abdomen: Bowel Sounds Present, Soft, Non Tender, Non-Distended : No renal angle tenderness. No suprapubic tenderness. Spontaneous voiding, clear urine. Extremities: No edema, Capillary Refill Less than 3 Seconds Skin: No rashes, No breakdown Musculoskeletal: No Tenderness to Palpation of Joints or Extremities Neurological: Cranial nerves II-XII grossly intact, Deep Tendon Reflexes 2+/4 and Symmetrical, Neuro grossly intact Psych/Mental Status: Mild anxious and restless. - Physical Exam Vitals/I&O's: Vital Signs Temp Pulse Resp BP Pulse Ox 98.7 F 80 18 137/74 H 88 11/04/20 09:15 11/04/20 09:15 11/04/20 09:15 11/04/20 09:15 11/04/20 09:17 Oxygen Flow Rate (L/min) [ 3 AMBULATION with Oxygen] Oxygen Flow Rate (L/min) [ 0 AMBULATING on Room Air] Oxygen Flow Rate (L/min) [At 0 REST on Room Air] Oxygen Flow Rate (L/min) 2 Oxygen Delivery Method Nasal Cannula Weight: 189 lb 0.001 oz Body Mass Index (BMI) 25.9 Intake and Output for Last 24 Hours 11/02/20 11/03/20 11/04/20 23:59 23:59 23:59 Intake Total 1646.25 / 1646.25 750 / 750 Output Total 250 / 250 450 / 450 Balance 1396.25 / 1396.25 300 / 300 Microbiology Past 72 Hours 11/02/20 03:05 Sputum, Expectorated/Coughed Gram Stain - Final 11/02/20 03:05 Sputum, Expectorated/Coughed Respiratory Culture - Preliminary 11/01/20 09:32 Blood Culture (Wb) - Left Forearm Blood Culture - Preliminary No growth in 48 hours. 11/01/20 09:39 Blood Culture (Wb) - Anticubital Left Blood Culture - Preliminary No growth in 48 hours. 11/01/20 11:21 Interface Orders Respiratory Panel (PCR) - Final 11/01/20 Unknown Urine, Clean Catch Legionella Antigen - Final 11/01/20 Unknown Urine, Clean Catch Streptococcus pneumoniae Antigen (M - Final 11/01/20 09:21 Mucosa - Nose SARS-CoV-2 Antigen (Rapid) - Final 11/01/20 09:21 Mucosa - Nose Influenza Types A,B Direct FA ([facility]) - Final Laboratory Results 11/04/20 08:16: WBC 15.2 H, RBC 4.32 L, Hgb 13.8, Hct 40.2, MCV 93.1, MCH 31.9, MCHC 34.3, RDW Std Deviation 44.2 H, RDW Coeff of Billy 12.9, Plt Count 279, MPV 11.5 11/04/20 08:16: Sodium 132 L, Potassium 4.0, Chloride 102, Carbon Dioxide 24.0, Anion Gap 6, BUN 15, Creatinine 0.62 L, Estim Creat Clear Calc 135.59, Est GFR (MDRD) Af Amer 170, Est GFR (MDRD) Non-Af 140, BUN/Creatinine Ratio 24.3 H, Glucose 107 H, Calcium 8.2 L, Total Bilirubin 0.80, AST 37, ALT 44, Alkaline Phosphatase 101, Total Protein 6.5, Albumin 2.6 L, Globulin 3.9, Albumin/Globulin Ratio 0.7 L Current Medications Albuterol Sulfate (Albuterol Sulfate 8 Gm Inhaler (60 Puffs)) 2 puff INHALATION Q6H.RT [facility] Last Admin: 11/02/20 21:12 Dose: 2 puff Documented by: Buspirone HCl (Buspirone 15 Mg Tablet) 15 mg PO TID [facility] Last Admin: 11/04/20 05:17 Dose: 15 mg Documented by: Dexamethasone (Dexamethasone 4 Mg Tablet) 6 mg PO DAILY [facility] Stop: 11/10/20 10:01 Last Admin: 11/04/20 09:20 Dose: 6 mg Documented by: Enoxaparin Sodium (Enoxaparin 30 Mg/0.3 Ml Syringe) 30 mg SC BID [facility] Last Admin: 11/04/20 09:20 Dose: 30 mg Documented by: Remdesivir 100 mg/ Sodium (Chloride) 250 mls @ 125 mls/hr IV DAILY [facility] Stop: 11/05/20 11:59 Last Infusion: 11/03/20 14:32 Dose: Infused Documented by: Sodium Chloride () 250 mls @ 15 mls/hr IV .[id number] PRN PRN Reason: Saline Flush Sodium Chloride () 250 mls @ 15 mls/hr IV .[id number] PRN PRN Reason: Additional IVPB Infusion Melatonin (Melatonin 3 Mg Tablet) 3 mg PO QHS PRN PRN Reason: INSOMNIA Last Admin: 11/02/20 21:14 Dose: 3 mg Documented by: Paroxetine HCl (Paroxetine 20 Mg Tablet) 20 mg PO DAILY [facility] Last Admin: 11/04/20 09:20 Dose: 20 mg Documented by: Potassium Phos/Sodium Phos (Na Biphos/Potassium Phosphate Packet) 1 packet PO BID [facility] Stop: 11/04/20 15:01 Last Admin: 11/04/20 09:20 Dose: 1 packet Documented by: Quetiapine Fumarate (Quetiapine 25 Mg Tablet) 50 mg PO QHS [facility] Last Admin: 11/03/20 21:45 Dose: 50 mg Documented by: Sodium Chloride (0.9% Saline Lock 10 Ml Syringe) 10 - 40 ml IV UD PRN PRN Reason: SALINE FLUSH Discharge Activity: May Not Drive - FOR 10 DAYS Call your doctor if you observe: Fever of 101 or Higher, Coldness, Increased Pain, Numbness or Tingling, Change in Color, Inability to urinate, Inability to have a bowel movement, Shortness of breath, Dizziness, Fainting spells, Swelling in the ankles, Chest pain, Prolonged hiccoughing, Increased palpitations (irregular heartbeat), Calf discomfort, Uncontrolled pain Home Medications: Medications to take at Discharge Buspirone HCl [Buspar] 15 mg PO TID 11/01/20 Apixaban [Eliquis] 2.5 mg PO BID #30 tab 11/04/20 Dexamethasone [Decadron] 6 mg PO DAILY #7 tab 11/04/20 Paroxetine [Paxil] 20 mg PO DAILY #30 tab 11/04/20 Quetiapine Fumarate [Seroquel] 50 mg PO QHS #30 tab 11/04/20 Following Prescriptions Were Given to Patient: Dexamethasone [Decadron] 6 mg PO DAILY #7 tab Transmission Status: Received by [place] [id number] Apixaban [Eliquis] 2.5 mg PO BID #30 tab Transmission Status: Pending to [place] [id number] Paroxetine [Paxil] 20 mg PO DAILY #30 tab Transmission Status: Received by [place] [id number] Quetiapine Fumarate [Seroquel] 50 mg PO QHS #30 tab Transmission Status: Received by [place] [id number] Primary Care Physician: Sameer Paredes MD [Primary Care Provider] - Please follow up with your Primary Care Physician in: IN 2 WEEK Medical Necessity - Tobacco Use Smoking Status: Heavy Smoker (>10/day) Tobacco Use: Cigarettes Meaningful Use Info Meaningful Use Diagnoses (Choose all that apply): None applicable Inpatient E&M: [id number] [facility]
--- NOTE | 2020-11-04 12:15 | NURSING ---
Oxygen requirements [facility] at [facility].
--- NOTE | 2020-11-04 12:19 | NURSING ---
This nurse spoke with [facility] [place] will [place] oxygen.
--- NOTE | 2020-11-04 16:09 | NURSING ---
Pt discharged home into the care of . IV D/C VSS. Discharge instructions gone over with patient who verbalized understanding. Patient taken to main entrance with RN via wheelchair for dc home.
== END 2020-11-04 15:30 | disposition home or self-care (01) | DRG 177 ==
LOC: ED 10:16 → MS2 13:08
PROVIDERS: Internal Medicine Infectious Disease; Admitting Provider Internal Medicine; Emergency Provider Emergency Medicine; PCP Family Medicine; Visit Provider Internal Medicine
DX: U07.1 COVID-19 (principal); J12.89 Other viral pneumonia; J44.0 Chronic obstructive pulmonary disease with (acute) lower respiratory infection; E87.1 Hypo-osmolality and hyponatremia; E87.6 Hypokalemia; F32.9 Major depressive disorder, single episode, unspecified; F41.9 Anxiety disorder, unspecified; D72.810 Lymphocytopenia; F17.210 Nicotine dependence, cigarettes, uncomplicated; Z66 Do not resuscitate; R09.02 Hypoxemia; Z79.899 Other long term (current) drug therapy; Z80.0 Family history of malignant neoplasm of digestive organs; E83.39 Other disorders of phosphorus metabolism
CPT/HCPCS: 36415; 71275; 80053; 82728; 83605; 83615; 83735; 84100; 84145; 84484; 85025; 85027; 85379; 86140; 87040; 87070; 87205; 87426; 87449; 87633; 87635; 87804; 93005; 94667; 99251; 99285; 99406; J7030; J7050; Q9967; A4216; G0463; U0002

== ENCOUNTER 2021-04-02 17:06 | Inpatient (IN) | payer MEDICARE, SELFPAY ==
[2020-11-01 15:44] VITALS: BMI 25.9
[2021-04-02] VITALS (14 sets, daily range): BP systolic 122–161; BP diastolic 68–83; PULSE 70–79; RESP 16–30; TEMP 36.6–39.1; O2SAT 88–100; BMI 24.6; BMI 25.2
--- NOTE | 2021-04-02 17:34 | EKG12_ITS ---
Test Reason : CP Blood Pressure : / mmHG Vent. Rate : 077 BPM Atrial Rate : 077 BPM P-R Int : 176 ms QRS Dur : 086 ms QT Int : 444 ms P-R-T Axes : 055 008 031 degrees QTc Int : 502 ms Normal sinus rhythm Prolonged QT Abnormal ECG Confirmed by RICK JONES, DAMASO ([id number]), editor in chief RAMON VITAL ([id number]) on 04/03/2021 10:07:13 AM Referred By: JESSE Confirmed By:DAMASO CABRERA MD
--- NOTE | 2021-04-02 17:36 | EX.ED.DYSGE1 ---
HPI History of Present Illness Chief Complaint: Chest Pain Informant: patient Narrative Narrative: Patient states that he has been ill for 1 week. He notes shortness of breath/dyspnea on exertion. He notes a clear sputum production. He does not have a thermometer at home but was febrile in triage. He notes vomiting for 3 days which has now improved. He notes persistent diarrhea which she describes as water. He tells me that he was admitted in October with pneumonia and was felt that he had COVID-19 but his test came back negative. He notes that he is a chronic smoker. He denies any known lung conditions. He notes a generalized central chest tightness. He denies any rashes. He does note some nasal congestion and sore throat. PFSH PFS Medical History Anxiety CHF (congestive heart failure) COPD (chronic obstructive pulmonary disease) Depression Marijuana use Neck fracture (~1994) Smoker Home Medications buspirone 15 mg PO TID 11/01/20 [History Last Taken 11/01/20] paroxetine HCl 20 mg PO DAILY #30 tab 11/04/20 [Rx Last Taken Unknown] quetiapine 50 mg PO QHS #30 tab 11/04/20 [Rx Last Taken Unknown] Allergy/AdvReac Type Severity Reaction Status Date / Time No Known Allergies Allergy Verified 04/02/21 17:15 Surgical History History of tonsillectomy and adenoidectomy Social History (Updated 04/02/21 @ 17:[address] Hilario Hanson DO) Smoking Status: Heavy Smoker (>10/day) substance use type: does not use ROS ROS ED Constitutional Constitutional ED: Reports chills, fever(s), subjective and sweats; Denies weight loss Eyes Eyes: Denies change in vision or diplopia ENT ENT ED: Reports rhinorrhea and sore throat; Denies ear pain Cardiovascular Cardiovascular: Reports chest pain; Denies orthopnea, palpitations or racing heartbeat Respiratory/Chest Respiratory/Chest: Reports cough, dyspnea, dyspnea on exertion and sputum; Denies orthopnea Gastrointestinal Gastrointestinal: Reports diarrhea, nausea and vomiting; Denies abdominal pain Genitourinary Genitourinary ED: Denies dysuria, hematuria or urinary frequency Musculoskeletal Musculoskeletal: Reports myalgias; Denies arthralgias Integumentary Denies abscess or rash Neurologic Neurologic: Reports headache(s); Denies weakness Psychiatric Psychiatric: Denies anxiety, depression, suicidal ideation or suicidal thoughts Endocrine Endocrinology: Denies polydipsia, polyphagia or polyuria Allergic/Immunologic Allergic/Immunologic ED: Denies mouth swelling, tongue swelling or urticaria EXAM Physical Exam Const Vital Signs: 04/02/21 17:07 04/02/21 17:11 04/02/21 17:49 Temperature 102.3 F H 102.3 F H Temperature Source Temporal Temporal Pulse Rate 79 76 Respiratory Rate 26 H 24 H Respiratory Pattern Blood Pressure 153/69 H 153/69 H Blood Pressure Mean 97 97 Pulse Ox 88 97 97 Oxygen Delivery Method Room Air Nasal Cannula Room Air Oxygen Flow Rate (L/min) 2 04/02/21 17:51 04/02/21 17:52 04/02/21 18:30 Temperature 98.3 F 98.3 F Temperature Source Oral Oral Pulse Rate 70 78 Respiratory Rate 18 20 H Respiratory Pattern Normal Blood Pressure 122/68 H Blood Pressure Mean 86 Pulse Ox 97 Oxygen Delivery Method Nasal Cannula Oxygen Flow Rate (L/min) 2 04/02/21 18:42 04/02/21 18:55 04/02/21 18:56 Temperature 98.4 F 98.4 F Temperature Source Oral Oral Pulse Rate 78 79 Respiratory Rate 18 30 H Respiratory Pattern Blood Pressure 149/83 H 161/77 H Blood Pressure Mean 105 105 Pulse Ox 100 98 Oxygen Delivery Method Nasal Cannula Nasal Cannula Oxygen Flow Rate (L/min) 2 2 04/02/21 19:27 Temperature 98.4 F Temperature Source Oral Pulse Rate Respiratory Rate Respiratory Pattern Blood Pressure Blood Pressure Mean Pulse Ox Oxygen Delivery Method Oxygen Flow Rate (L/min) Positive well nourished and well developed General Appearance ED: well developed HEENT Reports normocephalic, head/scalp atraumatic and moist mucous membranes Eyes PERRL and EOMs intact bilaterally Neck no lymphadenopathy, supple and no JVD Resp normal respiratory effort and clear to auscultation bilaterally Cardio regular rate, regular rhythm and no murmurs GI normal to inspection, nondistended, normoactive bowel sounds and non-tender Palpation: soft Back/Spine no CVA tenderness and normal ROM Extremity normal to inspection General Extremety ED: Negative for edema General Extremity: Negative for edema Neuro oriented x3 and CN's II-XII intact bilaterally Sensorium / Orientation: alert Motor Exam: strength 5/5 throughout Psych mental status grossly normal Mood & Affect: Negative for depressed or tearful Skin no rashes or lesions noted and no wounds MDM MDM MDM Narrative Medical decision making narrative: Patient noted to be hypoxic in triage. He received supplemental oxygen. Lung sounds were otherwise clear I gave him a DuoNeb and his chest tightness is better. My interpretation of his chest x-ray is pneumonia he has an elevated white count of 13.3. He received Rocephin and azithromycin. His potassium is low at 2.7 which is most likely due to the diarrhea loss. He received IV fluids as well as potassium supplementation. Covid test is negative. Tylenol for his fever reduced it. Lab Data Labs: Laboratory Results - last 24 hr 04/02/21 04/02/21 04/02/21 15:50 15:50 15:50 WBC 13.3 H RBC 4.14 L Hgb 13.1 Hct 37.5 L MCV 90.6 MCH 31.6 MCHC 34.9 RDW Std Deviation 42.7 RDW Coeff of Billy 13.1 Plt Count 224 MPV 11.2 Immature Gran % (Auto) 0.500 Neut % (Auto) 78.2 H Lymph % (Auto) 13.3 L Sully % (Auto) 6.9 Eos % (Auto) 0.8 Baso % (Auto) 0.3 Absolute Neuts (auto) 10.4 H Absolute Lymphs (auto) 1.77 Nucleated RBC % 0 PT 14.2 INR 1.2 APTT 30.1 Sodium 134 L Potassium 2.7 L* Chloride 100 Carbon Dioxide 28.0 Anion Gap 6 BUN 10 Creatinine 0.72 Estim Creat Clear Calc 116.76 Est GFR (MDRD) Af Amer 142 Est GFR (MDRD) Non-Af 117 BUN/Creatinine Ratio 13.9 Glucose 113 H Lactic Acid Calcium 8.2 L Total Bilirubin 0.90 AST 21 ALT 16 Alkaline Phosphatase 95 Troponin I < 0.015 Total Protein 6.7 Albumin 2.9 L Globulin 3.8 Albumin/Globulin Ratio 0.8 L 04/02/21 15:50 WBC RBC Hgb Hct MCV MCH MCHC RDW Std Deviation RDW Coeff of Billy Plt Count MPV Immature Gran % (Auto) Neut % (Auto) Lymph % (Auto) Sully % (Auto) Eos % (Auto) Baso % (Auto) Absolute Neuts (auto) Absolute Lymphs (auto) Nucleated RBC % PT INR APTT Sodium Potassium Chloride Carbon Dioxide Anion Gap BUN Creatinine Estim Creat Clear Calc Est GFR (MDRD) Af Amer Est GFR (MDRD) Non-Af BUN/Creatinine Ratio Glucose Lactic Acid 1.1 Calcium Total Bilirubin AST ALT Alkaline Phosphatase Troponin I Total Protein Albumin Globulin Albumin/Globulin Ratio Radiography Diagnostic Testing: Radiology Impression Chest X-Ray 04/02/21 18:08 IMPRESSION: Multifocal pneumonia. Electronically Signed: Esteban Waterman MD at 18:23 EDT Tel , Service support , EKG Initial EKG: Attestation: I personally reviewed and interpreted this EKG as follows: Comments: EKG demonstrates a normal sinus rhythm at a rate of 77. QT prolongation noted Discharge Plan Dx/Rx/DC Orders Clinical Impression: Hypokalemia, Pneumonia, QT prolongation, Diarrhea, Hypoxemia Disposition Disposition: Acute Care Hospital [facility]
[2021-04-02] MEDS: Acetaminophen 500 MG Tablet 1000 MG PO (17:45)
[2021-04-02] MEDS: 0.9% Normal Saline 1,000 ML 999 ML IV (17:47)
--- NOTE | 2021-04-02 18:08 | RAD_ITS ---
INDICATION: fever and cough EXAMINATION/TECHNIQUE: X-RAY - XR Chest 1 View COMPARISON: 05/25/2012. FINDINGS: Diffuse bilateral airspace opacities. The cardiomediastinal silhouette is unremarkable. No pleural effusion or pneumothorax. No acute osseous abnormalities. RAD/Chest 1 View (Portable) IMPRESSION: Multifocal pneumonia. Electronically Signed: Esteban aWterman MD at 18:23 EDT Tel , Service support ,
[2021-04-02 18:11] LABS: Absolute Lymphocyte Count 1.77 X10^3/uL (0.83-4.51); Absolute Neutrophil Count 10.4 X10^3/uL (2.0-7.7); Basophil# 0.04 X10^3/uL; Basophil% 0.3 % (0-1); Eosinophils% 0.8 % (0-5); Hematocrit 37.5 % (40-54); Hemoglobin 13.1 g/dL (13.0-16.5); Lymphocyte # 1.77 X10^3/ul (0.83-4.51); Lymphocyte % 13.3 % (19-41); Mean Corp Hgb Conc 34.9 g/dL (32-36); Mean Corpuscular Hgb 31.6 pg (27.0-32.0); Mean Corpuscular Volume 90.6 fL (80-94); Mean Platelet Vol. 11.2 fl (6.2-12.0); Monocyte# 0.92 X10^3/uL; Monocyte% 6.9 % (0-10); NRBC Flagged by Analyzer 0 % (0-5); Neutrophil # 10.37 X10^3/uL (2.7-7.7); Neutrophil % 78.2 % (47-70); Platelet Count 224 K/mm3 (150-450); RBC Distribution Width CV 13.1 % (11.6-14.6); RBC Distribution Width SD 42.7 fl (35.1-43.9); Red Blood Count 4.14 M/mm3 (4.6-6.2); White Blood Count 13.3 K/mm3 (4.4-11.0)
[2021-04-02 18:16] LABS: International Normalized Ratio 1.2; Prothrombin Time (Protime)PT. 14.2 SECONDS (11.7-14.9)
[2021-04-02 18:17] LABS: Partial Thromboplast Time 30.1 Seconds (24.1-36.2)
[2021-04-02] MEDS: Ipratropium/Albuterol Sulfate 3 ML AMPUL.NEB INHALATION (18:30)
[2021-04-02 18:35] LABS: Lactic Acid 1.1 mmol/L (0.4-1.9)
[2021-04-02] MEDS: Ceftriaxone 1 GM/50 ML BAG IV (18:38)
[2021-04-02] MEDS: 0.9% Normal Saline 1,000 ML 250 ML IV (18:38)
[2021-04-02 18:47] LABS: ALB/GLOB Ratio 0.8 RATIO (0.9-2.4); AST(SGOT) 21 U/L (15-37); Alanine Aminotransfer ALT/SGPT 16 U/L (16-61); Albumin, Serum 2.9 g/dL (3.2-5.0); Alkaline Phosphatase 95 U/L (45-117); Anion Gap 6 (5-15); BUN 10 mg/dL (7-18); BUN/Creat Ratio 13.9 RATIO (10-20); Calcium,Total 8.2 mg/dL (8.5-10.1); Chloride 100 mmol/L (98-107); Creatinine, Serum 0.72 mg/dL (0.70-1.30); EST Glomerular Filtration Rate 117 mL/min (>60); Est Glom Filt Rate - Afr Amer 142 mL/min (>60); Estimated Creatinine Clearance 116.76 ml/min; Globulin 3.8 g/dL (2.2-4.2); Glucose 113 mg/dL (74-106); Potassium 2.7 mmol/L (3.5-5.1); Protein, Total 6.7 g/dL (6.4-8.2); Sodium Level 134 mmol/L (136-145)
[2021-04-02] MEDS: Potassium Chloride Oral Tablet 20 MEQ 40 MEQ PO (18:54)
--- NOTE | 2021-04-02 19:52 | PCM.HP.STD ---
HPI - General HPI Narrative YARELY JORDAN, is a 60 M who presents today with a 1 week history of shortness of breath. Patient states that he has had shortness of breath and cough with fever. Patient reports that he had Covid back in October for which he was hospitalized. Patient denies nausea vomiting constipation. Patient also reports diarrhea for the past 3 days. PFSH Medical History Anxiety COPD (chronic obstructive pulmonary disease) Depression Marijuana use Neck fracture (~1994) Pneumonia due to COVID-19 virus Smoker Home Medications buspirone 15 mg PO TID 11/01/20 [History Last Taken 11/01/20] paroxetine HCl 20 mg PO DAILY #30 tab 11/04/20 [Rx Last Taken Unknown] quetiapine 50 mg PO QHS #30 tab 11/04/20 [Rx Last Taken Unknown] Allergy/AdvReac Type Severity Reaction Status Date / Time No Known Allergies Allergy Verified 04/02/21 17:15 Surgical History History of tonsillectomy and adenoidectomy Social History Smoking Status: Heavy Smoker (>10/day) substance use type: does not use ROS Constitutional Constitutional: Reports chills, fever(s) and malaise Cardiovascular Cardiovascular: Reports chest pain; Denies edema or palpitations Respiratory/Chest Respiratory/Chest: Reports cough, shortness of breath at rest and shortness of breath with exertion Gastrointestinal Gastrointestinal: Reports diarrhea; Denies abdominal pain, constipation, nausea or vomiting Genitourinary Genitourinary: Denies dysuria Musculoskeletal Musculoskeletal: Denies back pain or extremity pain Integumentary Integumentary: Denies dry skin, rash or wounds Neurologic Neurologic: Denies abnormal gait or abnormal speech Psychiatric Psychiatric: Denies anxiety or depression Endocrine Endocrinology: Denies change in body appearance Hematologic/Lymphatic Hematologic/Lymphatic: Denies easy bleeding or easy bruising Vital Signs Vital Signs Vital Signs: 04/02/21 17:07 04/02/21 17:11 04/02/21 17:49 Temperature 102.3 F H 102.3 F H Temperature Source Temporal Temporal Pulse Rate 79 76 Respiratory Rate 26 H 24 H Respiratory Pattern Blood Pressure 153/69 H 153/69 H Blood Pressure Mean 97 97 Pulse Ox 88 97 97 Oxygen Delivery Method Room Air Nasal Cannula Room Air Oxygen Flow Rate (L/min) 2 04/02/21 17:51 04/02/21 17:52 04/02/21 18:30 Temperature 98.3 F 98.3 F Temperature Source Oral Oral Pulse Rate 70 78 Respiratory Rate 18 20 H Respiratory Pattern Normal Blood Pressure 122/68 H Blood Pressure Mean 86 Pulse Ox 97 Oxygen Delivery Method Nasal Cannula Oxygen Flow Rate (L/min) 2 04/02/21 18:42 04/02/21 18:55 04/02/21 18:56 Temperature 98.4 F 98.4 F Temperature Source Oral Oral Pulse Rate 78 79 Respiratory Rate 18 30 H Respiratory Pattern Blood Pressure 149/83 H 161/77 H Blood Pressure Mean 105 105 Pulse Ox 100 98 Oxygen Delivery Method Nasal Cannula Nasal Cannula Oxygen Flow Rate (L/min) 2 2 04/02/21 19:27 Temperature 98.4 F Temperature Source Oral Pulse Rate Respiratory Rate Respiratory Pattern Blood Pressure Blood Pressure Mean Pulse Ox Oxygen Delivery Method Oxygen Flow Rate (L/min) Physical Exam Const alert and oriented x3 General Appearance: cooperative HEENT normocephalic and head/scalp atraumatic Eyes PERRL Neck supple, no JVD and thyroid normal General: trachea midline Lymph Lymphatic: no lymphadenopathy noted Resp normal air movement and clear to auscultation bilaterally Effort and Inspection: tachypneic Cardio regular rate, regular rhythm, S1 normal heart sound and S2 normal heart sound GI soft to palpation, non-tender and non-distended Auscultation: hyperactive bowel sounds Extremity normal capillary refill and no clubbing, cyanosis or edema General Extremity: no tenderness to palpation of joints or extremities Skin General Skin Exam: turgor normal Neuro CN's II-XII intact bilaterally Psych thought process normal, cooperative and affect normal Appearance: appropriate Lab / Micro Data Result Diagrams: 04/02/21 15:50 04/02/21 15:50 Labs: Laboratory Results - last 24 hr 04/02/21 04/02/21 04/02/21 15:50 15:50 15:50 WBC 13.3 H RBC 4.14 L Hgb 13.1 Hct 37.5 L MCV 90.6 MCH 31.6 MCHC 34.9 RDW Std Deviation 42.7 RDW Coeff of Billy 13.1 Plt Count 224 MPV 11.2 Immature Gran % (Auto) 0.500 Neut % (Auto) 78.2 H Lymph % (Auto) 13.3 L Atkinson % (Auto) 6.9 Eos % (Auto) 0.8 Baso % (Auto) 0.3 Absolute Neuts (auto) 10.4 H Absolute Lymphs (auto) 1.77 Nucleated RBC % 0 PT 14.2 INR 1.2 APTT 30.1 Sodium 134 L Potassium 2.7 L* Chloride 100 Carbon Dioxide 28.0 Anion Gap 6 BUN 10 Creatinine 0.72 Estim Creat Clear Calc 116.76 Est GFR (MDRD) Af Amer 142 Est GFR (MDRD) Non-Af 117 BUN/Creatinine Ratio 13.9 Glucose 113 H Lactic Acid Calcium 8.2 L Total Bilirubin 0.90 AST 21 ALT 16 Alkaline Phosphatase 95 Troponin I < 0.015 Total Protein 6.7 Albumin 2.9 L Globulin 3.8 Albumin/Globulin Ratio 0.8 L 04/02/21 15:50 WBC RBC Hgb Hct MCV MCH MCHC RDW Std Deviation RDW Coeff of Billy Plt Count MPV Immature Gran % (Auto) Neut % (Auto) Lymph % (Auto) Atkinson % (Auto) Eos % (Auto) Baso % (Auto) Absolute Neuts (auto) Absolute Lymphs (auto) Nucleated RBC % PT INR APTT Sodium Potassium Chloride Carbon Dioxide Anion Gap BUN Creatinine Estim Creat Clear Calc Est GFR (MDRD) Af Amer Est GFR (MDRD) Non-Af BUN/Creatinine Ratio Glucose Lactic Acid 1.1 Calcium Total Bilirubin AST ALT Alkaline Phosphatase Troponin I Total Protein Albumin Globulin Albumin/Globulin Ratio Micro: Microbiology 04/02/21 17:55 SARS-CoV-2 Antigen (Rapid) - Final Mucosa - Nasopharyngeal Radiology Impression Chest X-Ray 04/02/21 18:08 IMPRESSION: Multifocal pneumonia. Electronically Signed: Esteban Waterman MD at 18:23 EDT Tel , Service support , Assessment & Plan Assessment/Plan (1) Pneumonia: QUALIFIERS: Pneumonia type: due to unspecified organism Laterality: bilateral Lung location: unspecified part of lung Qualified Code(s): J18.9 - Pneumonia, unspecified organism (2) Hypokalemia: (3) Diarrhea: QUALIFIERS: Diarrhea type: unspecified type Qualified Code(s): R19.7 - Diarrhea, unspecified (4) Anxiety and depression: (5) QT prolongation: (6) Tobacco use disorder: PLAN: [facility] due to QT prolongation -O2 per protocol -Encourage incentive spirometry -Vital signs per protocol -CBC and BMP daily to trend white blood cell count and electrolytes -Routine duonebs and as needed albuterol nebulizer treatments ordered -Due to patient low potassium level will check an magnesium level -Continue Seroquel, BuSpar, Paxil for anxiety and depression -Patient received potassium replacement in ER, will continue gentle replacement with normal saline with 20 mEq of potassium at 100 ml/hr -Patient received first dose ceftriaxone and azithromycin in ER, will continue daily -Urinalysis obtained, urine culture and blood cultures pending. -Covid negative, respiratory panel pending. DVT Prophylaxis-subcu Lovenox This patient was seen by JEAN Baer under the supervision of Dr. Bernal.
[2021-04-02] MEDS: Potassium Chloride 10mEq/100mL 10 MEQ/100 ML IV.SOLN. 100 MEQ IV BOLUS (20:28)
[2021-04-02 21:01] LABS: Magnesium 2.3 mg/dL (1.6-2.6)
[2021-04-02] MEDS: busPIRone 15 MG TABLET PO (22:01)
[2021-04-02] MEDS: QUEtiapine 25 MG Tablet 50 MG PO (22:01)
[2021-04-02 22:10] LABS: Squamous Epithelial Cells - UA 0 SEEN /hpf (0-5); White Blood Cells 0 SEEN /hpf (0-5)
[2021-04-02 22:46] LABS: Color, Urine Yellow (Yellow); Glucose, Dipstick Normal (Normal); Ketone-Dipstick 15 mg/dl (Negative); Leukocyte Esterase-Dipstick 25 /ul (Negative); Nitrite-Dipstick Negative (Negative); Occult Blood-Urine 150 /ul (Negative); Protein-Dipstick 30 mg/dl (Negative); Urine Clarity Clear (Clear); Urine Urobilinogen 4 mg/dl (Normal)
[2021-04-02 23:02] LABS: Urine Bilirubin Dipstick 1 mg/dL (Negative)
[2021-04-02 23:05] LABS: Bacteria RARE /hpf (None Seen); Mucous, Urine 2+ /hpf (<or=2+); Red Blood Cells-Urine 0-5 SEEN /hpf (0-5)
[2021-04-03] VITALS (7 sets, daily range): BP systolic 133–147; BP diastolic 61–78; PULSE 69–83; RESP 18–22; TEMP 36.8–37.1; O2SAT 96–99
[2021-04-03] MEDS: busPIRone 15 MG TABLET PO ×3 (06:04→21:13)
[2021-04-03 06:42] LABS: Absolute Lymphocyte Count 1.23 X10^3/uL (0.83-4.51); Absolute Neutrophil Count 9.4 X10^3/uL (2.0-7.7); Basophil# 0.04 X10^3/uL; Basophil% 0.3 % (0-1); Eosinophil# 0.18 X10^3/uL; Eosinophils% 1.5 % (0-5); Hematocrit 34.5 % (40-54); Hemoglobin 11.7 g/dL (13.0-16.5); Lymphocyte # 1.23 X10^3/ul (0.83-4.51); Lymphocyte % 10.5 % (19-41); Mean Corp Hgb Conc 33.9 g/dL (32-36); Mean Corpuscular Hgb 31.5 pg (27.0-32.0); Mean Platelet Vol. 10.8 fl (6.2-12.0); Monocyte# 0.76 X10^3/uL; Monocyte% 6.5 % (0-10); NRBC Flagged by Analyzer 0 % (0-5); Neutrophil # 9.43 X10^3/uL (2.7-7.7); Neutrophil % 80.7 % (47-70); Platelet Count 198 K/mm3 (150-450); RBC Distribution Width CV 13.2 % (11.6-14.6); RBC Distribution Width SD 44.9 fl (35.1-43.9); Red Blood Count 3.71 M/mm3 (4.6-6.2); White Blood Count 11.7 K/mm3 (4.4-11.0)
[2021-04-03 07:05] LABS: Anion Gap 6 (5-15); BUN 6 mg/dL (7-18); BUN/Creat Ratio 11.6 RATIO (10-20); Chloride 106 mmol/L (98-107); Creatinine, Serum 0.52 mg/dL (0.70-1.30); EST Glomerular Filtration Rate 172 mL/min (>60); Est Glom Filt Rate - Afr Amer 209 mL/min (>60); Estimated Creatinine Clearance 161.67 ml/min; Glucose 104 mg/dL (74-106); Potassium 3.5 mmol/L (3.5-5.1); Sodium Level 136 mmol/L (136-145)
--- NOTE | 2021-04-03 07:24 | PN.HOSP_ITS ---
Subjective Subjective Patient is a 60-year-old lady who presented to the emergency department with 1- week history of intermittent chest pain shortness of breath with cough with fever. Imaging studies obtained demonstrated multifocal pneumonia admitted to regular nursing floor for further management Objective Data Objective Data Vital Signs: Vital Signs Temp Pulse Resp BP Pulse Ox 98.5 F 70 18 133/78 H 99 04/03/21 01:48 04/03/21 01:48 04/03/21 01:48 04/03/21 01:48 04/03/21 01:48 Oxygen Flow Rate (L/min) 2 Oxygen Delivery Method Nasal Cannula Weight: 84.3 kg Body Mass Index (BMI) 25.2 Intake & Output: Intake and Output for Last 24 Hours 04/01/21 04/02/21 04/03/21 23:59 23:59 23:59 Intake Total 2263.33 / 2263.33 250 / 250 Balance 2263.33 / 2263.33 250 / 250 Lab / Micro Data Result Diagrams: 04/03/21 06:20 04/03/21 06:20 Micro: Microbiology 04/02/21 17:55 Mucosa - Nose Respiratory Panel (PCR) - Final 04/02/21 17:55 Mucosa - Nasopharyngeal SARS-CoV-2 Antigen (Rapid) - Final Radiography Diagnostic Testing: Radiology Impression Chest X-Ray 04/02/21 18:08 IMPRESSION: Multifocal pneumonia. Electronically Signed: Esteban Waterman MD at 18:23 EDT Tel , Service support , Physical Exam Narrative GENERAL: cooperative HEENT: Atraumatic; EYES; Anicteric, Normal Conjunctiva NECK; supple, normal thyroid, RESPIRATORY: Diminished to auscultation CARDIOVASCULAR: Regular S1 S2, GI: soft, normoactive bowel sounds, : No Renal angle tenderness; EXTREMITIES: No edema, no clubbing, MUSCULOSKELETAL: no muscle waisting NEURO: Awake; no lateralizing signs. SKIN: Extensive tattoos PSYCH; Flat affect Assessment & Plan Assessment/Plan (1) Pneumonia: QUALIFIERS: Pneumonia type: due to unspecified organism Lat erality: bilateral Lung location: unspecified part of lung Qualified Code(s): J18.9 - Pneumonia, unspecified organism (2) Hypokalemia: (3) Diarrhea: QUALIFIERS: Diarrhea type: unspecified type Qualified Code(s): R19.7 - Diarrhea, unspecified PLAN: Patient is a 60-year-old lady who presented to the emergency department with 1- week history of intermittent chest pain shortness of breath with cough with fever. Imaging studies obtained demonstrated multifocal pneumonia admitted to regular nursing floor for further management 1. Community-acquired pneumonia ?Patient has been admitted to regular nursing floor managed with Rocephin and Zithromax in addition to supplemental oxygen and aerosol treatments as needed. Cultures were sent on admission we will follow up on results 2. Mild hyponatremia ?Patient started on IV fluid with subsequent monitoring of electrolyte 3. Hypokalemia ?Corrected per protocol serial BMPs ordered 4. Depression with anxiety ?Patient is on SSRI did continue 5. Bipolar disorder ?Patient is on Seroquel 6. Tobacco dependence - Counseled on cessation, offered nicotine patch for tobacco cravings 7. DVT prophylaxis - On enoxaparin Visit Charges Inpatient E&M: 88741 Subs Hosp L2
[2021-04-03] MEDS: Ipratropium/Albuterol Sulfate 3 ML AMPUL.NEB INHALATION ×3 (07:29→19:23)
[2021-04-03] MEDS: Enoxaparin 40 MG/0.4 ML Syringe SC (10:22)
[2021-04-03] MEDS: Paroxetine 20 MG Tablet PO (10:22)
--- NOTE | 2021-04-03 11:54 | NURSING ---
RN CM Assessment Introduced role of RN CM to patient. Patient is alert, oriented and able to participate in RN CM Assessment. Care providers, pharmacy, and demographics verified. Admit Dx: PNA Re-Admit: No Barriers/Issues: None PCP: None, PCP list provided Specialists: Lashawn Schroeder Preferred Pharmacy: [facility] Insurance: [facility] A/B Rx Benefit: No LNOK: Cleo Goncalves LW/HPOA: None. Information with [employer] work rack card provided. Informed can return as an outpatient to complete and if wanting to complete on this admission to notify staff. Living Arrangements: Lives with in a SSH, no steps to enter. ADL?s: Independent with ambulation and ADLs Transportation: Both patient and drive. will transport upon DC DME: None HHC: None SNF: None Goal: Home and states may need home oxyen. Informed patient of criteria and provided a DME list. had home oxygen when he had Covid but not currently- was with [employer] and this would be his preference again. States has a h/o COPD. Denies any further issues, concerns, needs or questions with DC planning at this time. Aware RNCM will remain available should any needs arise. DC PLAN: Home with possible Home Oxyen ([employer] preference)- F/u on O2 testing. CORAL Parker
[2021-04-03] MEDS: 0.9% Saline Lock 10 ML Syringe IV (15:39)
[2021-04-03] MEDS: Ondansetron 4 MG/2 ML Vial IV (15:39)
[2021-04-03] MEDS: QUEtiapine 25 MG Tablet 50 MG PO (21:13)
[2021-04-03] MEDS: guaiFENesin 1,200 MG Tablet 1200 MG PO (21:13)
[2021-04-04] VITALS (10 sets, daily range): BP systolic 126–171; BP diastolic 60–78; PULSE 73–89; RESP 16–21; TEMP 36.6–37; O2SAT 85–96
[2021-04-04] MEDS: busPIRone 15 MG TABLET PO ×2 (05:58→10:34)
--- NOTE | 2021-04-04 06:54 | NURSING ---
pt came to see pt at his request. pt had called her and states he is not feeling well and he needed to see her mango. talked to pt regarding his home psychiatric med doses, [facility] 0800 will let dayshift rn know to verify his home meds. reports that pt has difficulty if isnt getting correct dose. 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
[2021-04-04] MEDS: Ondansetron 4 MG/2 ML Vial IV (07:28)
[2021-04-04] MEDS: 0.9% Saline Lock 10 ML Syringe IV (07:28)
--- NOTE | 2021-04-04 07:59 | PN.HOSP_ITS ---
Subjective Subjective Patient seen breathing improving however he desaturated easily on ambulation Objective Data Objective Data Vital Signs: Vital Signs Temp Pulse Resp BP Pulse Ox 98.1 F 74 16 126/60 H 95 04/04/21 01:19 04/04/21 01:19 04/04/21 01:19 04/04/21 01:19 04/04/21 07:50 Oxygen Flow Rate (L/min) 2 Oxygen Delivery Method Nasal Cannula Weight: 84.3 kg Body Mass Index (BMI) 25.2 Intake & Output: Intake and Output for Last 24 Hours 04/02/21 04/03/21 04/04/21 23:59 23:59 23:59 Intake Total 2263.33 / 2263.33 3303.25 / 3303.25 440 / 440 Balance 2263.33 / 2263.33 3303.25 / 3303.25 440 / 440 Lab / Micro Data Result Diagrams: 04/03/21 06:20 04/03/21 06:20 Micro: Microbiology 04/02/21 17:55 Mucosa - Nose Respiratory Panel (PCR) - Final 04/02/21 17:55 Mucosa - Nasopharyngeal SARS-CoV-2 Antigen (Rapid) - Final Physical Exam Narrative GENERAL: cooperative HEENT: Atraumatic; EYES; Anicteric, Normal Conjunctiva NECK; supple, normal thyroid, RESPIRATORY: Diminished to auscultation CARDIOVASCULAR: Regular S1 S2, GI: soft, normoactive bowel sounds, : No Renal angle tenderness; EXTREMITIES: No edema, no clubbing, MUSCULOSKELETAL: no muscle waisting NEURO: Awake; no lateralizing signs. SKIN: Extensive tattoos PSYCH; Flat affect Assessment & Plan Assessment/Plan (1) Pneumonia: QUALIFIERS: Laterality: bilateral Lung location: unspecified part of lung Pneumonia type: due to unspecified organism Qualified Code(s): J18.9 - Pneumonia, unspecified organism (2) Hypokalemia: (3) Diarrhea: QUALIFIERS: Diarrhea type: unspecified type Qualified Code(s): R19.7 - Diarrhea, unspecified PLAN: Patient is a 60-year-old lady who presented to the emergency department with 1- week history of intermittent chest pain shortness of breath with cough with fever. Imaging studies obtained demonstrated multifocal pneumonia admitted to regular nursing floor for further management 1. Community-acquired pneumonia ?Patient has been admitted to regular nursing floor managed with Rocephin and Zithromax in addition to supplemental oxygen and aerosol treatments as needed. Cultures were sent on admission we will follow up on results -April 04, 2021; Patient seen breathing improving however he desaturated easily on ambulation. Patient will be assessed for home oxygen needs on discharge possibly on April 05, 2021 2. Mild hyponatremia ?Patient started on IV fluid with subsequent monitoring of electrolyte 3. Hypokalemia ?Corrected per protocol serial BMPs ordered 4. Depression with anxiety ?Patient is on SSRI did continue 5. Bipolar disorder ?Patient is on Seroquel 6. Tobacco dependence - Counseled on cessation, offered nicotine patch for tobacco cravings 7. DVT prophylaxis - On enoxaparin Visit Charges Inpatient E&M: 43883 Subs Hosp L2
[2021-04-04] MEDS: Citalopram 40 MG TABLET 80 MG PO (10:34)
[2021-04-04] MEDS: guaiFENesin 1,200 MG Tablet 1200 MG PO ×2 (10:34→21:01)
[2021-04-04] MEDS: Enoxaparin 40 MG/0.4 ML Syringe SC (10:35)
[2021-04-04] MEDS: Ipratropium/Albuterol Sulfate 3 ML AMPUL.NEB INHALATION ×2 (11:26→19:06)
[2021-04-04] MEDS: busPIRone 15 MG TABLET 30 MG PO ×2 (13:40→21:02)
[2021-04-04] MEDS: QUEtiapine 100 MG Tablet 400 MG PO (21:01)
[2021-04-05] VITALS (7 sets, daily range): BP systolic 112–168; BP diastolic 69–83; PULSE 86–97; RESP 18–19; TEMP 36.7–36.9; O2SAT 86–94
[2021-04-05] MEDS: busPIRone 15 MG TABLET 30 MG PO (05:57)
[2021-04-05] MEDS: Ipratropium/Albuterol Sulfate 3 ML AMPUL.NEB INHALATION (06:30)
--- NOTE | 2021-04-05 07:21 | PCM.DC.SUM ---
Providers Date of Admission: 04/02/21 Primary Care Physician: No Primary Care Phys Reason For Visit: PNEUMONIA Diagnosis Discharge Diagnosis (1) Pneumonia: Status: Acute Code(s): J18.9 - Pneumonia, unspecified organism Qualifiers: Laterality: bilateral Lung location: unspecified part of lung Pneumonia type: due to unspecified organism Qualified Code(s): J18.9 - Pneumonia, unspecified organism (2) Hypokalemia: Status: Acute Code(s): E87.6 - Hypokalemia (3) Diarrhea: Status: Acute Code(s): R19.7 - Diarrhea, unspecified Qualifiers: Diarrhea type: unspecified type Qualified Code(s): R19.7 - Diarrhea, unspecified Medications at Discharge Home Medications buspirone 30 mg PO TID 11/01/20 citalopram 80 mg PO DAILY 04/02/21 quetiapine [Seroquel] 400 mg PO QHS 04/02/21 albuterol sulfate 2 puff INHALATION Q6H PRN #8.5 g 04/05/21 cefdinir 300 mg PO BID #14 cap 04/05/21 guaifenesin [Mucus Relief ER] 1,200 mg PO BID #20 tab 04/05/21 Hospital Course Summary of Care Provided Minutes Spent on Discharge: 40 Hospital Course: Patient is a 60-year-old lady who presented to the emergency department with 1-week history of intermittent chest pain shortness of breath with cough with fever.? Imaging studies obtained demonstrated multifocal pneumonia admitted to regular nursing floor for further management 1.? Community-acquired pneumonia ?Patient has been admitted to regular nursing floor managed with Rocephin and Zithromax in addition to supplemental oxygen and aerosol treatments as needed.? Cultures were sent on admission we will follow up on results -April 04, 2021; Patient seen breathing improving however he desaturated easily on ambulation.? Patient will be assessed for home oxygen needs on discharge possibly on April 05, 2021 -04/05/2021; patient seen stable on discharge. He was however assessed for home oxygen which she did qualify he will need portability since is active both at home as well as in the community. 2.? Mild hyponatremia ?Patient started on IV fluid with subsequent monitoring of electrolyte 3.? Hypokalemia ?Corrected per protocol serial BMPs ordered 4.? Depression with anxiety ?Patient is on SSRI did continue 5.? Bipolar disorder ?Patient is on Seroquel 6.? Tobacco dependence - Counseled on cessation, offered nicotine patch for tobacco cravings 7.? DVT prophylaxis - On enoxaparin Physical Exam Narrative GENERAL: cooperative HEENT: Atraumatic; EYES; Anicteric, Normal Conjunctiva NECK; supple, normal thyroid, RESPIRATORY: Diminished to auscultation CARDIOVASCULAR:? Regular S1 S2, GI:? soft, normoactive bowel sounds, : No Renal angle tenderness; EXTREMITIES:? No edema, no clubbing, MUSCULOSKELETAL:? no muscle waisting NEURO:? Awake;? no lateralizing signs. SKIN: Extensive tattoos ABG / Lab / Microbiology Data Result Diagrams: 04/03/21 06:20 04/03/21 06:20 Microbiology: Microbiology 04/02/21 22:00 Urine Culture - Final Urine, Clean Catch Mixed Gram Positive Organisms Microbiology 04/02/21 22:00 Urine, Clean Catch Urine Culture - Final Mixed Gram Positive Organisms 04/02/21 17:55 Mucosa - Nose Respiratory Panel (PCR) - Final 04/02/21 17:55 Mucosa - Nasopharyngeal SARS-CoV-2 Antigen (Rapid) - Final D/C Instructions Discharge Diet: No restrictions Discharge Activity: Return to Normal Activity Meaningful Use Info Meaningful Use Diagnoses (Choose all that apply): None applicable Discharge Plan Admission Admit Date/Time: 04/02/21 19:51 Attending Provider: Thanh Flores Primary Care Provider: Care Physician,No Primary Instructions Patient Instructions: ED Pneumonia (Adult) Discharge Orders/Prescriptions Prescriptions: New cefdinir 300 mg capsule 300 mg PO BID Qty: 14 RF: 0 albuterol sulfate 90 mcg/actuation HFA aerosol inhaler 2 puff inhalation Q6H PRN (Reason: shortness of breath or wheezing) Qty: 8.5 RF: 0 Mucus Relief ER 1,200 mg Tablet Extended Release 12hr 1,200 mg PO BID Qty: 20 RF: 0 Continued buspirone 30 MG tablet 30 mg PO TID RF: 0 citalopram 40 mg Tablet 80 mg PO DAILY RF: 0 quetiapine [Seroquel] 400 mg Tablet 400 mg PO QHS RF: 0 Referrals / Follow Up: Care Physician,No Primary [Primary Care Provider] - Within 2 Weeks Disposition Disposition (needs filled in before D/C Order can be placed): Home, self care Visit Charges Inpatient E&M: 81723 Disch Hosp
[2021-04-05] MEDS: Citalopram 40 MG TABLET 80 MG PO (09:14)
[2021-04-05] MEDS: guaiFENesin 1,200 MG Tablet 1200 MG PO (09:14)
--- NOTE | 2021-04-05 09:40 | CASEMGMT ---
KATHERINE MOREIRA updated by nursing that patient will need home oxygen at discharge. KATHERINE MOREIRA received script for home oxygen and referral sent to [facility] patient's preferred provider. KATHERINE MOREIRA called and arranged for delivery of portable tank to patient's room.
== END 2021-04-05 11:09 | disposition home or self-care (01) | DRG 194 ==
LOC: ED 18:49 → MS3 04-03 02:23
PROVIDERS: Nurse Practitioner Family; Admitting Provider Family Medicine; Emergency Provider Emergency Medicine; Visit Provider Internal Medicine
DX: J18.9 Pneumonia, unspecified organism (principal); E87.1 Hypo-osmolality and hyponatremia; J44.0 Chronic obstructive pulmonary disease with (acute) lower respiratory infection; E87.6 Hypokalemia; F41.8 Other specified anxiety disorders; F31.9 Bipolar disorder, unspecified; F17.200 Nicotine dependence, unspecified, uncomplicated; R19.7 Diarrhea, unspecified; F12.90 Cannabis use, unspecified, uncomplicated; Z86.16 Personal history of COVID-19; Z87.01 Personal history of pneumonia (recurrent)
CPT/HCPCS: 36415; 71045; 80048; 80053; 81001; 83605; 83735; 84484; 85025; 85610; 85730; 87040; 87086; 87088; 87426; 87633; 93005; 94640; 94762; 97802; 99285; J7030; J7050; A4216; J0696; J2405

== ENCOUNTER 2021-04-17 21:35 | Emergency (ER) | payer MEDICARE, SELFPAY ==
[2021-04-02 21:11] VITALS: BMI 25.2
[2021-04-17 21:36] VITALS: BP 121/75; PULSE 78; RESP 18; TEMP 36.6; O2SAT 92; BMI 23.0
--- NOTE | 2021-04-17 23:05 | CT_ITS ---
We are attempting to reach an attending provider to discuss findings. An addendum with communication details will be sent when the communication is complete. HISTORY: Kidney Stone TECHNIQUE: Helically acquired images were obtained of the abdomen and pelvis without oral or IV contrast. A radiation dose optimization technique was used for this scan. COMPARISON: Chest CT from November 01, 2020, and previous abdomen and pelvis CT from May 27, 2012. FINDINGS: # of images incl. paperwork: 486 LUNG BASES: Some airspace disease remains within the lower lungs with some nodules in the left upper lobe adjacent to the left hemidiaphragm. CT abdomen: Multilevel degenerative disc disease. Some facet arthropathy. 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 The gallbladder is distended. The stomach is distended with gas and liquid. Liver, spleen, and adrenal glands are normal. There is a pancreatic head mass causing pancreatic ductal dilatation. This mass to represent a cystic lesion extending inferiorly and along the body of the pancreas and abutting the tail of the pancreas. There are some calcifications within the head of the pancreas suggestive of chronic pancreatitis. The main portion of this cystic mass within the head of the pancreas has indistinct margins and some indistinct margins. I measured the mass at 5.4 x 7.2 x 13.8 cm. The mass is new since May 27, 2012. Calcifications within the head of the pancreas are greater. The mass appears to be new since November 01, 2020 as well.. Calcifications within the left renal hilum ablative arterial rather than urothelial. No hydronephrosis. No hydroureter. No ureteric stones.. The aorta is severely diseased with atherosclerosis but without aneurysm. There is no intra-or extrahepatic biliary ductal dilatation. CT pelvis: Fluid is present within the mesentery inferior to the pancreas surrounding small bowel loops and colon.. The prostate gland is not enlarged. The appendix is normal. Series 2 image 93. The bladder is normal. Abnormal bowel wall thickening is present through several loops of small bowel within the right hemipelvis. There is equalization of the contents of several loops of small bowel within the right hemipelvis. The terminal ileum is decompressed. Tiny bilateral inguinal hernias containing fat. CT/Abdomen/Pelvis without Cont IMPRESSION: 5.4 x 7.2 x 13.8 cm cystic mass extending from the head of the pancreas down into the mesentery. More inferiorly there is an additional loculated cystic fluid collections within the mesentery directly opposed to many loops of small bowel. These loops of small bowel have bowel wall thickening. Some of the small bowel within the right lower quadrant also has equalization of its contents consistent with decreased motility and possible at least partial obstruction. The terminal ileum is completely decompressed downstream from this bowel. I believe this likely represents a pseudocyst dissecting down into the mesentery from the head of the pancreas with the pseudocyst is causing inflammatory change and partial bowel obstruction to these terminal ileum loops. The possibility of malignancy, and a cystic malignancy within the head of the pancreas, unfortunately, is within the differential diagnosis. There may also be some inflammatory change to the gallbladder which is fairly well distended with indistinct margins Individualized dose optimization techniques were used for this CT. at 0019 Reported and signed by: Kevin Pulliam MD Electronically Signed: Kevin Pullaim MD at 0:18 EDT Tel , Service support ,
--- NOTE | 2021-04-17 23:06 | EDS_ITS ---
HPI History of Present Illness Chief Complaint: Complaint Narrative Narrative: Patient presents with back pain for last 5 days. It seems to be in his mid back not a particular side. Is not movement related. It is sharp and stabbing. He is noticed he has had some dark urine. 2 weeks ago he was admitted for pneumonia he noticed he had some mild blood in his urine. He is not on any blood thinners. Is never had a kidney stone. Current severity is moderate. He is been using ibuprofen and BenGay. Does not remember having a kidney stone in the past. Stated he does not seem to be movement related. PFSH PFSH Medical History Anxiety COPD (chronic obstructive pulmonary disease) Depression Marijuana use Neck fracture (~1994) Pneumonia due to COVID-19 virus Smoker Home Medications buspirone 30 mg PO TID 11/01/20 [History Last Taken 04/02/21] citalopram 80 mg PO DAILY 04/02/21 [History Last Taken 04/02/21] quetiapine [Seroquel] 400 mg PO QHS 04/02/21 [History Last Taken 04/01/21] albuterol sulfate 2 puff INHALATION Q6H PRN #8.5 g 04/05/21 [Rx Last Taken Unknown] Allergy/AdvReac Type Severity Reaction Status Date / Time No Known Allergies Allergy Verified 04/17/21 21:36 Surgical History History of tonsillectomy and adenoidectomy Social History Smoking Status: Heavy Smoker (>10/day) substance use type: does not use ROS ROS ED ROS Narrative ROS General: Denies fever, chills, sweats Eyes: Denies visual changes, blurred vision, double vision ENT: Denies ear pain, rhinorrhea, sore throat Cardiovascular: Denies chest pain, palpitations, heart racing Respiratory: Denies dyspnea, cough, sputum, dyspnea on exertion, orthopnea,PND GI: Denies abdominal pain, vomiting, diarrhea, constipation, melena : See HPI Musculoskeletal: Denies myalgias, arthralgias, neck pain, see HPI Skin: Denies rash, abscess, abrasions Neuro: Denies headache, weakness, paresthesia Psych: Denies depression, anxiety Endo: Denies polyuria, polydipsia, polyphagia Heme: Denies easy bruising, easy bleeding, lymphadenopathy Allergy: Denies hives, swelling EXAM Physical Exam Narrative Exam Narrative: Vital signs reviewed General: Well-nourished well-developed Head: Normocephalic atraumatic Eyes: Pupils equal round and reactive to light extraocular movements intact ENT: TMs clear no hemotympanum no trauma Neck: Nontender full range of motion Cardiovascular: Regular rate rhythm no murmurs normal S1-S2 Respiratory: No distress clear to auscultation bilaterally chest nontender Abdomen: Soft nontender nondistended normal bowel sounds no masses Back: Nontender no CVA tenderness Extremities: Nontender active range of motion ?4 extremities no trauma Skin: Normal color no trauma Neuro alert oriented cranial nerves II through XII intact normal strength sensation reflexes Const Vital Signs: 04/17/21 21:36 04/17/21 23:43 Temperature 97.8 F 98.0 F Temperature Source Temporal Temporal Pulse Rate 78 104 H Respiratory Rate 18 159 H Blood Pressure 121/75 H 103/76 Blood Pressure Mean 90 85 Pulse Ox 92 95 Oxygen Delivery Method Room Air Room Air MDM MDM MDM Narrative Medical decision making narrative: Tablets given IV fluids morphine Toradol Zofran. Lab work and CT abdomen pelvis obtained. Lab work shows a leukocytosis greater than 19,000. Lipase is greater than 500. He has a mild elevation in his alkaline phosphatase. Urinalysis shows 3+ bacteria but no leuks or nitrates. CT abdomen pelvis shows a large cystlike mass off the head of the pancreas. Appears to dissect down into the abdomen. There is a suspected partial small bowel obstruction. However the patient does not have any signs or symptoms of this. He has no nausea vomiting abdominal pain or diarrhea or constipation. He is having normal bowel movements. He denies pain in his abdomen he when he presses. Case was discussed with her hospitalist and general surgery and They feel the patient will be better served and treated at a tertiary care facility. Patient would like to go to [facility]. Reached out to them for transfer. They do not had bit beds available until morning. Lab Data Labs: Laboratory Results - last 24 hr 04/17/21 04/17/21 04/17/21 23:27 23:37 23:37 WBC 19.7 H RBC 4.27 L Hgb 13.3 Hct 38.7 L MCV 90.6 MCH 31.1 MCHC 34.4 RDW Std Deviation 42.9 RDW Coeff of Billy 13.1 Plt Count 570 H MPV 10.7 Immature Gran % (Auto) 1.900 H Neut % (Auto) 79.9 H Lymph % (Auto) 9.9 L Gordon % (Auto) 7.5 Eos % (Auto) 0.4 Baso % (Auto) 0.4 Absolute Neuts (auto) 15.7 H Absolute Lymphs (auto) 1.94 Nucleated RBC % 0 PT INR APTT Sodium 131 L Potassium 4.0 Chloride 95 L Carbon Dioxide 26.0 Anion Gap 10 BUN 14 Creatinine 0.67 L Estim Creat Clear Calc 124.68 Est GFR (MDRD) Af Amer 155 Est GFR (MDRD) Non-Af 128 BUN/Creatinine Ratio 20.9 H Glucose 128 H Calcium 8.8 Total Bilirubin Direct Bilirubin AST ALT Alkaline Phosphatase Total Protein Albumin Globulin Lipase Urine Color Yellow Urine Clarity Clear Urine pH 8.0 Ur Specific Steele 1.015 Urine Protein 15 H Urine Glucose (UA) Normal Urine Ketones 50 H Urine Occult Blood 25 H Urine Nitrite Negative Urine Bilirubin Negative Urine Urobilinogen 1 H Ur Leukocyte Esterase Negative Urine RBC 0 SEEN Urine WBC 0 SEEN Ur Squamous Epith Cells 0-5 SEEN Amorphous Sediment 2+ Urine Bacteria 3+ Urine Mucus 0 SEEN 04/17/21 04/17/21 23:37 23:37 WBC RBC Hgb Hct MCV MCH MCHC RDW Std Deviation RDW Coeff of Billy Plt Count MPV Immature Gran % (Auto) Neut % (Auto) Lymph % (Auto) Gordon % (Auto) Eos % (Auto) Baso % (Auto) Absolute Neuts (auto) Absolute Lymphs (auto) Nucleated RBC % PT 14.3 INR 1.2 APTT 33.3 Sodium Potassium Chloride Carbon Dioxide Anion Gap BUN Creatinine Estim Creat Clear Calc Est GFR (MDRD) Af Amer Est GFR (MDRD) Non-Af BUN/Creatinine Ratio Glucose Calcium Total Bilirubin 0.50 Direct Bilirubin 0.30 AST 52 H ALT 45 Alkaline Phosphatase 194 H Total Protein 6.9 Albumin 2.1 L Globulin 4.8 H Lipase 572 H Urine Color Urine Clarity Urine pH Ur Specific Steele Urine Protein Urine Glucose (UA) Urine Ketones Urine Occult Blood Urine Nitrite Urine Bilirubin Urine Urobilinogen Ur Leukocyte Esterase Urine RBC Urine WBC Ur Squamous Epith Cells Amorphous Sediment Urine Bacteria Urine Mucus Radiography Diagnostic Testing: Radiology Impression Abdomen/Pelvis CT 04/17/21 23:05 IMPRESSION: 5.4 x 7.2 x 13.8 cm cystic mass extending from the head of the pancreas down into the mesentery. More inferiorly there is an additional loculated cystic fluid collections within the mesentery directly opposed to many loops of small bowel. These loops of small bowel have bowel wall thickening. Some of the small bowel within the right lower quadrant also has equalization of its contents consistent with decreased motility and possible at least partial obstruction. The terminal ileum is completely decompressed downstream from this bowel. I believe this likely represents a pseudocyst dissecting down into the mesentery from the head of the pancreas with the pseudocyst is causing inflammatory change and partial bowel obstruction to these terminal ileum loops. The possibility of malignancy, and a cystic malignancy within the head of the pancreas, unfortunately, is within the differential diagnosis. There may also be some inflammatory change to the gallbladder which is fairly well distended with indistinct margins Individualized dose optimization techniques were used for this CT. at 0019 Reported and signed by: Kevin Pulliam MD Electronically Signed: Kevin Pulliam MD at 0:18 EDT Tel , Service support , ADDENDUM: 04/18/21 0031 IMPRESSION: 5.4 x 7.2 x 13.8 cm cystic mass extending from the head of the pancreas down into the mesentery. More inferiorly there is an additional loculated cystic fluid collections within the mesentery directly opposed to many loops of small bowel. These loops of small bowel have bowel wall thickening. Some of the small bowel within the right lower quadrant also has equalization of its contents consistent with decreased motility and possible at least partial obstruction. The terminal ileum is completely decompressed downstream from this bowel. I believe this likely represents a pseudocyst dissecting down into the mesentery from the head of the pancreas with the pseudocyst is causing inflammatory change and partial bowel obstruction to these terminal ileum loops. The possibility of malignancy, and a cystic malignancy within the head of the pancreas, unfortunately, is within the differential diagnosis. There may also be some inflammatory change to the gallbladder which is fairly well distended with indistinct margins Individualized dose optimization techniques were used for this CT. at 0019 Reported and signed by: Kevin Pulliam MD N.B. : The above information has been verbally conveyed by Kevin Pulliam MD to c.o.d. clerk refused to give nameMD, on 04/18/2021 00:24:14 (ET). Electronically Signed: Kevin Pulliam MD at 0:18 EDT Tel , Service support , Discharge Plan Triage Chief Complaint: Complaint Other Complaint: Back ED Provider: Jake Fernando Dx/Rx/DC Orders Clinical Impression: Cystic mass of pancreas Prescriptions: No Action buspirone 30 MG tablet 30 mg PO TID RF: 0 citalopram 40 mg Tablet 80 mg PO DAILY RF: 0 quetiapine [Seroquel] 400 mg Tablet 400 mg PO QHS RF: 0 albuterol sulfate 90 mcg/actuation HFA aerosol inhaler 2 puff inhalation Q6H PRN (Reason: shortness of breath or wheezing) Qty: 8.5 RF: 0 Primary Care Provider: Care Physician,No Primary Referrals: Care Physician,No Primary [Primary Care Provider] - Disposition Disposition: Acute Care Hospital
[2021-04-17] MEDS: Ketorolac 15 MG/ML Vial IV (23:36)
[2021-04-17] MEDS: 0.9% Normal Saline 1,000 ML 250 ML IV (23:36)
[2021-04-17] MEDS: Ondansetron 4 MG/2 ML Vial IV (23:36)
[2021-04-17] MEDS: Morphine 4 MG/ML Syringe IV (23:38)
[2021-04-17 23:43] VITALS: BP 103/76; PULSE 104; RESP 159; TEMP 36.7; O2SAT 95
[2021-04-17 23:47] LABS: Absolute Lymphocyte Count 1.94 X10^3/uL (0.83-4.51); Absolute Neutrophil Count 15.7 X10^3/uL (2.0-7.7); Basophil# 0.07 X10^3/uL; Basophil% 0.4 % (0-1); Eosinophil# 0.08 X10^3/uL; Eosinophils% 0.4 % (0-5); Hematocrit 38.7 % (40-54); Hemoglobin 13.3 g/dL (13.0-16.5); Lymphocyte # 1.94 X10^3/ul (0.83-4.51); Lymphocyte % 9.9 % (19-41); Mean Corp Hgb Conc 34.4 g/dL (32-36); Mean Corpuscular Hgb 31.1 pg (27.0-32.0); Mean Corpuscular Volume 90.6 fL (80-94); Mean Platelet Vol. 10.7 fl (6.2-12.0); Monocyte# 1.48 X10^3/uL; Monocyte% 7.5 % (0-10); NRBC Flagged by Analyzer 0 % (0-5); Neutrophil # 15.71 X10^3/uL (2.7-7.7); Neutrophil % 79.9 % (47-70); Platelet Count 570 K/mm3 (150-450); RBC Distribution Width CV 13.1 % (11.6-14.6); RBC Distribution Width SD 42.9 fl (35.1-43.9); Red Blood Count 4.27 M/mm3 (4.6-6.2); White Blood Count 19.7 K/mm3 (4.4-11.0)
[2021-04-17 23:53] LABS: Color, Urine Yellow (Yellow); Glucose, Dipstick Normal (Normal); Ketone-Dipstick 50 mg/dl (Negative); Leukocyte Esterase-Dipstick Negative /ul (Negative); Mucous, Urine 0 SEEN /hpf (<or=2+); Nitrite-Dipstick Negative (Negative); Occult Blood-Urine 25 /ul (Negative); Protein-Dipstick 15 mg/dl (Negative); Red Blood Cells-Urine 0 SEEN /hpf (0-5); Specific Gravity, Urine 1.015 (1.002-1.030); Urine Bilirubin Dipstick Negative (Negative); Urine Clarity Clear (Clear); Urine Urobilinogen 1 mg/dl (Normal); White Blood Cells 0 SEEN /hpf (0-5)
[2021-04-17 23:53] LABS: BUN 14 mg/dL (7-18); Creatinine, Serum 0.67 mg/dL (0.70-1.30); EST Glomerular Filtration Rate 128 mL/min (>60); Estimated Creatinine Clearance 124.68 ml/min; Glucose 128 mg/dL (74-106)
[2021-04-17 23:54] LABS: Anion Gap 10 (5-15); BUN/Creat Ratio 20.9 RATIO (10-20); Calcium,Total 8.8 mg/dL (8.5-10.1); Chloride 95 mmol/L (98-107); Est Glom Filt Rate - Afr Amer 155 mL/min (>60); Sodium Level 131 mmol/L (136-145)
[2021-04-18 00:13] LABS: Amorphous Sediment 2+; Bacteria 3+ /hpf (None Seen); Squamous Epithelial Cells - UA 0-5 SEEN /hpf (0-5)
[2021-04-18 00:44] LABS: International Normalized Ratio 1.2; Prothrombin Time (Protime)PT. 14.3 SECONDS (11.7-14.9)
[2021-04-18 00:45] LABS: Partial Thromboplast Time 33.3 Seconds (24.1-36.2)
[2021-04-18 00:49] LABS: AST(SGOT) 52 U/L (15-37); Alanine Aminotransfer ALT/SGPT 45 U/L (16-61); Albumin, Serum 2.1 g/dL (3.2-5.0); Alkaline Phosphatase 194 U/L (45-117); Globulin 4.8 g/dL (2.2-4.2); Lipase 572 U/L (73-393); Protein, Total 6.9 g/dL (6.4-8.2)
[2021-04-18 02:48] VITALS: BP 115/82; PULSE 99; RESP 14; O2SAT 96
[2021-04-18 04:00] VITALS: RESP 14
[2021-04-18 06:00] VITALS: BP 145/79; PULSE 98; RESP 16; O2SAT 95
[2021-04-18] MEDS: 0.9% Normal Saline 1,000 ML 150 ML IV (06:15)
[2021-04-18 07:16] VITALS: BP 150/74
[2021-04-18] MEDS: Morphine 4 MG/ML Syringe 6 MG IV (07:24)
--- NOTE | 2021-04-18 07:54 | NURSING ---
CALLED [facility], TALKED TO ARACELI. NO BED YET, BUT HOPEFULLY BEFORE NOON. HE IS HIGH ON THE LIST
--- NOTE | 2021-04-18 08:52 | NURSING ---
KOURTNEY FOFANA [id number] NURSE TO NURSE [phone]
--- NOTE | 2021-04-18 09:02 | NURSING ---
CALLED [facility], ETA IS WITHIN THE HOUR
[2021-04-18 09:03] VITALS: BP 144/78; PULSE 90; RESP 14; O2SAT 94
[2021-04-18 09:50] VITALS: BP 145/77
== END 2021-04-18 10:27 | disposition short-term general hospital (02) ==
PROVIDERS: Emergency Provider Emergency Medicine
DX: K86.2 Cyst of pancreas (principal); F17.210 Nicotine dependence, cigarettes, uncomplicated; J44.9 Chronic obstructive pulmonary disease, unspecified; F41.9 Anxiety disorder, unspecified; F32.9 Major depressive disorder, single episode, unspecified; R31.9 Hematuria, unspecified
CPT/HCPCS: 74176; 80048; 80076; 81001; 83690; 85025; 85610; 85730; 87426; 96361; 96374; 96375; 96376; 99285; J7030; A4216; J2405

== ENCOUNTER 2021-07-31 19:13 | Emergency (ER) | payer MEDICARE, SELFPAY ==
[2021-07-31 19:14] VITALS: BP 148/66; PULSE 100; RESP 18; TEMP 36.6; O2SAT 100; BMI 23.7
[2021-07-31 20:26] LABS: Absolute Lymphocyte Count 0.95 X10^3/uL (0.83-4.51); Absolute Neutrophil Count 8.9 X10^3/uL (2.0-7.7); Basophil# 0.07 X10^3/uL; Basophil% 0.7 % (0-1); Eosinophil# 0.02 X10^3/uL; Eosinophils% 0.2 % (0-5); Hematocrit 42.3 % (40-54); Hemoglobin 14.5 g/dL (13.0-16.5); Lymphocyte # 0.95 X10^3/ul (0.83-4.51); Mean Corp Hgb Conc 34.3 g/dL (32-36); Mean Corpuscular Hgb 31.5 pg (27.0-32.0); Mean Platelet Vol. 11.6 fl (6.2-12.0); Monocyte# 0.53 X10^3/uL; NRBC Flagged by Analyzer 0 % (0-5); Neutrophil # 8.92 X10^3/uL (2.7-7.7); Neutrophil % 84.6 % (47-70); Platelet Count 235 K/mm3 (150-450); RBC Distribution Width CV 13.2 % (11.6-14.6); RBC Distribution Width SD 44.4 fl (35.1-43.9); White Blood Count 10.5 K/mm3 (4.4-11.0)
--- NOTE | 2021-07-31 20:38 | ED.VIS.GI ---
HPI HPI - GI History of Present Illness Chief Complaint: Abd Pain Narrative Narrative: Patient presenting for evaluation secondary to abdominal pain. Patient has a underlying history of a pancreatic pseudocyst that was discovered back in April. He was sent up to [facility], was admitted for 5 days was discharged and has had repeat CAT scans to monitor this. Patient states that they were unsure of the cause of this he is not a frequent alcohol user. Patient states that he has been dealing with some intermittent abdominal pain but he got it significantly worse today. He was supposed to have a follow-up CT scan today but was told that the CT scanner where he was going was broken. Patient does endorse some nausea occasional chills but no vomiting or diarrhea associated with this. Pain is located in his upper abdomen is worse with palpation. Review of systems otherwise negative. PFSH PFSH Medical History Anxiety COPD (chronic obstructive pulmonary disease) Depression Marijuana use Neck fracture (~1994) Pneumonia due to COVID-19 virus Smoker Home Medications buspirone 30 mg PO TID 11/01/20 [History Last Taken 04/02/21] citalopram 80 mg PO DAILY 04/02/21 [History Last Taken 04/02/21] quetiapine [Seroquel] 400 mg PO QHS 04/02/21 [History Last Taken 04/01/21] albuterol sulfate 2 puff INHALATION Q6H PRN #8.5 g 04/05/21 [Rx Last Taken Unknown] Allergy/AdvReac Type Severity Reaction Status Date / Time No Known Allergies Allergy Verified 07/31/21 19:14 Surgical History History of tonsillectomy and adenoidectomy Social History Smoking Status: Heavy Smoker (>10/day) substance use type: does not use ROS ROS ED Constitutional Constitutional ED: Reports chills ENT ENT ED: Denies sore throat Cardiovascular Cardiovascular: Denies chest pain Respiratory/Chest Respiratory/Chest: Denies cough or dyspnea Gastrointestinal Gastrointestinal: Reports abdominal pain and nausea Genitourinary Genitourinary ED: Denies dysuria, hematuria or urinary frequency Musculoskeletal Musculoskeletal: Denies myalgias Integumentary Denies rash Neurologic Neurologic: Denies paresthesias or weakness Psychiatric Psychiatric: Denies depression Endocrine Endocrinology: Denies polyuria Hematologic/Lymphatic Hematologic/Lymphatic: Denies easy bleeding or easy bruising Allergic/Immunologic Allergic/Immunologic ED: Denies urticaria EXAM Physical Exam Const Vital Signs: 07/31/21 19:14 Temperature 97.8 F Temperature Source Temporal Pulse Rate 100 Respiratory Rate 18 Blood Pressure 148/66 H Blood Pressure Mean 93 Pulse Ox 100 Oxygen Delivery Method Room Air Positive well nourished and well developed General Appearance ED: well developed and NAD HEENT normocephalic and atraumatic Eyes EOMs intact bilaterally General Eye ED: Negative for pale conjunctiva or scleral icterus Neck no lymphadenopathy and supple Resp normal respiratory effort and clear to auscultation bilaterally Cardio regular rate, regular rhythm, no murmurs and peripheral pulses 2+ throughout GI non-distended and no masses Palpation: soft and tender epigastric and LUQ; Negative for guarding, rigid or rebound tenderness present Back/Spine no CVA tenderness Extremity full ROM General Extremety ED: Negative for edema General Extremity: Negative for edema Neuro moves all extremities and no sensory deficits noted Sensorium / Orientation: alert, oriented to person, oriented to place and oriented to time Motor Exam: strength 5/5 throughout Psych mental status grossly normal Skin Rashes: no rashes MDM MDM MDM Narrative Medical decision making narrative: Patient presented secondary to abdominal pain. Patient declined pain medication in the emergency department he was given IV fluids. CBC was unremarkable, chemistry shows mild depression of the patient's potassium at 3.2 does show elevation of the lipase at 688. I ordered a CT abdomen and pelvis with p.o. and IV contrast. This was performed, prior to the results being obtained the patient states that he has complete resolution of his pain and would like to take his CT results and follow-up with his surgeon. I informed him that he does at least have somewhat of a exacerbation of his pancreatitis. I recommended that that he would need to go on clear liquids. Patient has follow-up with general surgery scheduled. He was recommended to keep that. He was educated on signs and symptoms which to return. Lab Data Labs: Laboratory Results - last 24 hr 07/31/21 07/31/21 20:15 20:15 WBC 10.5 RBC 4.60 Hgb 14.5 Hct 42.3 MCV 92.0 MCH 31.5 MCHC 34.3 RDW Std Deviation 44.4 H RDW Coeff of Billy 13.2 Plt Count 235 MPV 11.6 Immature Gran % (Auto) 0.500 Neut % (Auto) 84.6 H Lymph % (Auto) 9.0 L Garfield % (Auto) 5.0 Eos % (Auto) 0.2 Baso % (Auto) 0.7 Absolute Neuts (auto) 8.9 H Absolute Lymphs (auto) 0.95 Nucleated RBC % 0 Sodium 137 Potassium 3.2 L Chloride 105 Carbon Dioxide 23.0 Anion Gap 9 BUN 10 Creatinine 0.99 Estim Creat Clear Calc 83.83 Est GFR (MDRD) Af Amer 98 Est GFR (MDRD) Non-Af 81 BUN/Creatinine Ratio 10.1 Glucose 174 H Calcium 9.4 Total Bilirubin 0.60 AST 17 ALT 18 Alkaline Phosphatase 92 Total Protein 7.7 Albumin 3.5 Globulin 4.2 Albumin/Globulin Ratio 0.8 L Lipase 688 H Discharge Plan Triage Chief Complaint: Abd Pain ED Provider: Qamar Olson Dx/Rx/DC Orders Clinical Impression: Acute pancreatitis Instructions: ED Pancreatitis Prescriptions: No Action buspirone 30 MG tablet 30 mg PO TID RF: 0 citalopram 40 mg Tablet 80 mg PO DAILY RF: 0 quetiapine [Seroquel] 400 mg Tablet 400 mg PO QHS RF: 0 albuterol sulfate 90 mcg/actuation HFA aerosol inhaler 2 puff inhalation Q6H PRN (Reason: shortness of breath or wheezing) Qty: 8.5 RF: 0 Primary Care Provider: Sameer Ruiz Referrals: Sameer Ruiz MD [Primary Care Provider] - Activity Restrictions/Additional Instructions: F/u with Dr Daugherty Disposition Disposition: Home, Self Care
[2021-07-31] MEDS: 0.9% Normal Saline 1,000 ML 125 ML IV (21:00)
[2021-07-31 21:03] LABS: ALB/GLOB Ratio 0.8 RATIO (0.9-2.4); AST(SGOT) 17 U/L (15-37); Alanine Aminotransfer ALT/SGPT 18 U/L (16-61); Albumin, Serum 3.5 g/dL (3.2-5.0); Alkaline Phosphatase 92 U/L (45-117); Anion Gap 9 (5-15); BUN 10 mg/dL (7-18); BUN/Creat Ratio 10.1 RATIO (10-20); Calcium,Total 9.4 mg/dL (8.5-10.1); Chloride 105 mmol/L (98-107); Creatinine, Serum 0.99 mg/dL (0.70-1.30); EST Glomerular Filtration Rate 81 mL/min (>60); Est Glom Filt Rate - Afr Amer 98 mL/min (>60); Estimated Creatinine Clearance 83.83 ml/min; Globulin 4.2 g/dL (2.2-4.2); Glucose 174 mg/dL (74-106); Lipase 688 U/L (73-393); Potassium 3.2 mmol/L (3.5-5.1); Protein, Total 7.7 g/dL (6.4-8.2); Sodium Level 137 mmol/L (136-145)
--- NOTE | 2021-07-31 22:00 | CT_ITS ---
STUDY: CT ABDOMEN AND PELVIS WITH CONTRAST REASON FOR EXAM: Male, 61 years old. Pancreatic Pseudocyst -- IV PO Contrast RADIATION DOSAGE (If Supplied By Facility): CTDIvol = ( 16.94 ) mGy, DLP = ( 911.45 ) mGycm TECHNIQUE: Transaxial images were obtained from the dome of the diaphragm to the symphysis pubis without oral contrast. Oral and amp; IV Gastrografin and amp; 100mL Isovue-370 was administered. Sagittal and coronal images were reconstructed. Individualized dose optimization techniques were used for this CT. COMPARISON: 04/17/2021 FINDINGS: The visualized lung bases are unremarkable. The visualized portions of the heart are within normal limits. Normal liver. Normal gallbladder. There is a 1.2 x 2.0 x 1.3 cm round low attenuation focus that appears to be contiguous with the common bile duct and abut or arise from the pancreatic head. Normal spleen. There are pancreatic calcifications in the distribution of the ducts consistent with chronic pancreatitis. There is associated ductal dilatation of the pancreatic duct secondary to ductal calculi. No pancreatic atrophy is seen. There is a cystic focus abutting and caudal to the pancreatic head that has significantly decreased in size since the prior examination measuring up to 2.2 cm previously measuring up to 12.78 cm by my measurements. There are persistent low-attenuation foci within the mesentery within the right lower quadrant that has significantly decreased in size since the prior examination. The spleen is within normal limits. Normal bilateral adrenal glands. Normal right kidney. Normal left kidney. Normal visualized stomach. Normal small intestine. Normal colon. The appendix is visualized and appears normal. There is diffuse atherosclerotic calcification of the abdominal aorta, without a demonstrated aneurysm. Normal inferior vena cava. Normal retroperitoneum. Normal urinary bladder. There is a small umbilical hernia containing fat. There are diffuse degenerative changes of the visualized lumbar spine. CT/Abdomen/Pelvis WITH Contrast IMPRESSION: 1.2 x 2.0 x 1.3 cm cystic focus that appears to be contiguous with the common bile duct may reflect a ductal diverticulum or possible choledochocele. Interval decrease in size of round low-attenuation foci within the mesentery which may reflect loculated fluid although a neoplastic process cannot be entirely excluded. Significant interval decrease in size of pseudocyst cranial and abutting the pancreatic head. Pancreatic ductal dilatation secondary to ductal calculi suggestive of a history of chronic pancreatitis. Atherosclerosis. Electronically Signed: Brittaney Lloyd MD at 22:44 EDT Tel , Service support ,
== END 2021-07-31 22:20 | disposition home or self-care (01) ==
PROVIDERS: Emergency Provider Emergency Medicine; PCP Family Medicine
DX: K85.90 Acute pancreatitis without necrosis or infection, unspecified (principal); F17.210 Nicotine dependence, cigarettes, uncomplicated; F41.9 Anxiety disorder, unspecified; J44.9 Chronic obstructive pulmonary disease, unspecified; F32.9 Major depressive disorder, single episode, unspecified; Z86.16 Personal history of COVID-19
CPT/HCPCS: 74177; 80053; 83690; 85025; 99283; J7030; Q9967; A4216

== ENCOUNTER → 2023-08-13 | Outpatient (CLI) | payer MEDICARE, SELFPAY ==
[2023-08-13 15:03] LABS: Amphetamine Urine VISTA NEGATIVE (<1000 ng/mL); Barbiturate Urine VISTA NEGATIVE (< 200 ng/mL); Benzodiazepine Urine VISTA NEGATIVE (< 200 ng/mL); Cocaine Urine VISTA NEGATIVE (< 300 ng/mL); Ecstacy Urine VISTA NEGATIVE (< 500 ng/mL); Methadone Urine VISTA NEGATIVE (< 300 ng/mL); PCP Urine VISTA NEGATIVE (< 25 ng/mL); THC Urine VISTA POSITIVE (< 50 ng/mL); Vista UDS pH Range 5
[2023-08-13 17:34] LABS: BUP Internal Control LINE = VALID (VALID); Buprenorphine Drug Screen Positive (<10 ng/mL)
== END | disposition home or self-care (01) ==
LOC: LAB 14:30
PROVIDERS: PCP Family Medicine; Referring Provider Anesthesiology Pain Medicine; Visit Provider Anesthesiology Pain Medicine
DX: F11.20 Opioid dependence, uncomplicated (principal)
CPT/HCPCS: 80307

== ENCOUNTER 2024-01-06 09:56 | Emergency (ER) | payer MEDICARE, SELFPAY ==
[2024-01-06 09:58] VITALS: BP 123/61; PULSE 72; RESP 18; TEMP 36.7; BMI 18.8
--- NOTE | 2024-01-06 10:12 | EKG12_ITS ---
Test Reason : SOB Blood Pressure : / mmHG Vent. Rate : 067 BPM Atrial Rate : 067 BPM P-R Int : 186 ms QRS Dur : 084 ms QT Int : 426 ms P-R-T Axes : 069 016 036 degrees QTc Int : 450 ms Normal sinus rhythm Normal ECG Confirmed by NICOLE JONES, ZAC ([id number]), supervising editor news reel CADEN LÓPEZ ([id number]) on 01/07/2024 9:08:03 AM Referred By: Confirmed By:ZAC RIVERA MD
--- NOTE | 2024-01-06 10:12 | CT_ITS ---
STUDY: CTA CHEST REASON FOR EXAM: Male, 63 years old. Hemoptysis and shortness of breath. COPD. RADIATION DOSAGE (If Supplied By Facility): CTDIvol = ( 6.76 ) mGy, DLP = ( 206.87 ) mGycm TECHNIQUE: The examination was performed with the intravenous administration of IV 100mL Isovue-370. Post-processing of the angiographic images was performed, with multiplanar reformation and 3D reconstruction. Individualized dose optimization techniques were used for this CT. COMPARISON: Comparison is made with prior CT scan of the chest dated November 01, 2020. FINDINGS: Normal enhancement of the main pulmonary artery and right and left pulmonary arteries. Normal enhancement of the bilateral peripheral pulmonary arteries. There is no demonstrated pulmonary embolism. Normal thoracic aorta and visualized great vessels. There is no demonstrated aortic dissection. Normal heart and pericardium. No evidence of coronary artery calcification. Normal mediastinum. Normal hilar regions. Normal visualized trachea and bronchi. Hyperinflation. There is evidence of a scarring with bronchiectasis in the right upper lobe. Emphysematous blebs are seen in both upper lobes worse on the right side. Scarring at the lung bases with subpleural blebs. Calcified pleural plaques. Normal chest wall structures. There are degenerative changes of thoracic spine. Dense calcification of the body and head and uncinate process of the pancreas. There is a 4.2 cm x 5.4 cm heterogeneous mass in the region of the head and uncinate process of the pancreas. Pancreatic carcinoma should be ruled out. Is evidence of soft tissue densities extending into the leila hepatis suggestive of possible adenopathy. The portal vein is not well visualized. Suspect portal venous thrombosis. CT/CTA Chest W/WO Contrast IMPRESSION: No evidence of pulmonary embolism. Hyperinflation and emphysematous changes worse in the right lung with scarring in the right upper lobe. Pancreatic mass with soft tissue density in the leila hepatis suggestive of possible adenopathy with possible portal venous compromise. Electronically Signed: Octavio Jasso MD at 12:03 EST ,
--- NOTE | 2024-01-06 10:14 | EX.ED.DYSGE1 ---
HPI History of Present Illness Chief Complaint: Shortness of Breath Informant: patient Narrative Narrative: Patient presents with some hemoptysis and dyspnea. Patient states that over the last couple weeks he will get short of breath if he gets really active. But he does not get any chest pain or pressure. He also states that he has been coughing up a little bit of blood mostly in the morning after sleeping. No epistaxis. No weight loss. He does state he has had some myalgias also. But no fever. He saw his private physician who referred him over here for evaluation. Patient has had no recent travel surgery or immobilization. He is a smoker. No history of cancer or lung cancer. PFSH [facility] Medical History Anxiety COPD (chronic obstructive pulmonary disease) Depression Marijuana use Neck fracture (~1994) Pneumonia due to COVID-19 virus Smoker Home Medications buspirone 30 mg tablet 30 mg PO TID ANXIETY 11/01/20 [History Last Taken 04/02/21] citalopram 40 mg tablet 80 mg PO DAILY depression 04/02/21 [History Last Taken 04/02/21] quetiapine 400 mg tablet (Seroquel) 400 mg PO QHS mood 04/02/21 [History Last Taken 04/01/21] albuterol sulfate 90 mcg/actuation aerosol inhaler 2 puff inhalation Q6H PRN shortness of breath or wheezing #8.5 grams 04/05/21 [Rx Last Taken Unknown] albuterol sulfate 90 mcg/actuation aerosol inhaler (Ventolin HFA) 2 puff inhalation Q4H PRN PRN Wheezing ##1 01/06/24 [Rx Last Taken Unknown] doxycycline monohydrate 100 mg capsule 100 mg PO BID #20 CAPSULES 01/06/24 [Rx Last Taken Unknown] prednisone 20 mg tablet 60 mg (3 x 20 mg) PO DAILY #15 TABLETS 01/06/24 [Rx Last Taken Unknown] Allergy/AdvReac Type Severity Reaction Status Date / Time No Known Allergies Allergy Verified 01/06/24 09:57 Surgical History History of tonsillectomy and adenoidectomy Social History Smoking Status: Heavy Smoker (>10/day) substance use type: does not use ROS ROS ED ROS Narrative A complete review of systems was performed and is negative except as documented in the history of present illness. Some specific details below. Constitutional: No recent fevers or chills. But he does have myalgias EYE: No visual complaints. ENT: No difficulty swallowing. No swelling. No pain. No reflux symptoms. CV: No chest pain or palpitations. Respiratory: See history of present illness. GI: No abdominal pain. No nausea vomiting diarrhea. No blood in stool. : No frequency dysuria or hematuria. Musculoskeletal: No recent trauma. No swelling. He does have some mild diffuse myalgias. Skin: No rash. Nondiaphoretic. Neuro: No focal weakness or numbness. Endocrine: No polyuria or polydipsia. EXAM Physical Exam Narrative Exam Narrative: CONSTITUTIONAL: Patient is nontoxic in appearance. The patient looks comfortable. Work of breathing looks normal. HEENT: No notable trauma. Mucous membranes moist. No sinus tenderness. No indication of pain with swallowing. No visualized source of bleeding. EYES: No conjunctival injection. No proptosis. NECK:No JVD. No stridor. CARDIOVASCULAR: Regular rate. Regular rhythm. No notable murmur. No JVD. RESPIRATORY: No respiratory distress. Breathing is unlabored. He does have a few coarse breath sounds that seem to be greater on expiration. This might be some coarse wheezing versus rhonchi. But he is not coughing here. GASTROINTESTINAL: Not distended. Bowel sounds are normal. No tenderness. GENITOURINARY: No CVA tenderness. MUSCULOSKELETAL: Atraumatic. No peripheral edema. No cord. No tenderness along the deep venous system. No asymmetry. No distended veins. NEUROLOGICAL: Patient is alert and appropriate. No focal deficit noted. SKIN: No noted rashes. No diaphoresis. PSYCHIATRIC: Patient is calm. Mood is appropriate. Const Vital Signs: 01/06/24 09:58 01/06/24 10:13 01/06/24 10:22 Temperature 98.1 F Temperature Source Temporal Pulse Rate 72 66 Respiratory Rate 18 16 Respiratory Effort Normal Respiratory Depth Normal Respiratory Pattern Normal Normal Blood Pressure 123/61 H Blood Pressure Mean 81 MDM MDM MDM Narrative Medical decision making narrative: My independent interpretation of the patient's CT of the chest does not show PE or cancer. There is a lot of change of COPD though. Final reading was similar but they do note a lot of changes around the pancreas with potential pancreatic mass. I discussed with the patient that this could represent pancreatic cancer but the images were not focused or ideal for the pancreas. He has no symptoms there now but does have a history of chronic recurrent pancreatic problems and is already getting follow-up for that. I explained that this may need some further imaging and evaluation. CBC shows minimal anemia that I do not think is contributing to his problems. Electrolytes show no marked abnormalities. Troponin is negative. BNP is negative. Patient did get some improvement with DuoNeb. He states he has an albuterol inhaler at home he is pretty sure but he just does not really use it. I think this may be some mild COPD. I will add steroids and write for a new inhaler. With a little bit of blood in sputum I will add antibiotics as adjunct of therapy. Lab Data Labs: Laboratory Results - last 24 hr 01/06/24 10:30 WBC 7.0 RBC 3.89 L Hgb 12.4 L Hct 36.9 L MCV 94.9 H MCH 31.9 MCHC 33.6 RDW Std Deviation 55.9 H RDW Coeff of Billy 16.0 H Plt Count 164 MPV 11.0 Immature Gran % (Auto) 0.900 Neut % (Auto) 63.9 Lymph % (Auto) 23.8 Ritchie % (Auto) 9.3 Eos % (Auto) 1.4 Baso % (Auto) 0.7 Absolute Neuts (auto) 4.5 Absolute Lymphs (auto) 1.66 Nucleated RBC % 0 Sodium 136 Potassium 3.7 Chloride 103 Carbon Dioxide 26.0 Anion Gap 7 BUN 9 Creatinine 0.77 Estim Creat Clear Calc 81.90 Est GFR (MDRD) Af Amer 131 Est GFR (MDRD) Non-Af 108 BUN/Creatinine Ratio 11.7 Glucose 130 H Calcium 8.3 L Troponin I High Sens < 3 L B-Natriuretic Peptide 42.0 Radiography Diagnostic Testing: Clinical Impression(s) from Imaging Studies Chest CTA 01/06/24 10:12 IMPRESSION: No evidence of pulmonary embolism. Hyperinflation and emphysematous changes worse in the right lung with scarring in the right upper lobe. Pancreatic mass with soft tissue density in the leila hepatis suggestive of possible adenopathy with possible portal venous compromise. Electronically Signed: Octavio Jasso MD at 12:03 EST , Discharge Plan Triage Chief Complaint: Shortness of Breath ED Provider: Morgan Nixon Dx/Rx/DC Orders Clinical Impression: COPD with acute exacerbation, History of hemoptysis Instructions: ED COPD Flare Prescriptions: New prednisone 20 mg tablet 60 mg PO DAILY Qty: 15 0RF doxycycline monohydrate 100 mg capsule 100 mg PO BID Qty: 20 0RF albuterol sulfate [Ventolin HFA] 90 mcg/actuation HFA aerosol inhaler 2 puff inhalation Q4H PRN PRN (Reason: Wheezing) Qty: 1 0RF No Action buspirone 30 MG tablet 30 mg PO TID citalopram 40 mg Tablet 80 mg PO DAILY quetiapine [Seroquel] 400 mg Tablet 400 mg PO QHS albuterol sulfate 90 mcg/actuation HFA aerosol inhaler 2 puff inhalation Q6H PRN (Reason: shortness of breath or wheezing) Qty: 8.5 0RF Primary Care Provider: Sameer Ruiz Referrals: Sameer Ruiz MD [Primary Care Provider] - 3-5 Days Disposition Disposition: Home, Self Care
[2024-01-06 10:22] VITALS: PULSE 66; RESP 16
[2024-01-06] MEDS: Ipratropium/Albuterol Sulfate 3 ML AMPUL.NEB INHALATION (10:22)
[2024-01-06 10:37] LABS: Absolute Lymphocyte Count 1.66 X10^3/uL (0.83-4.51); Absolute Neutrophil Count 4.5 X10^3/uL (2.0-7.7); Basophil# 0.05 X10^3/uL; Basophil% 0.7 % (0-1); Eosinophils% 1.4 % (0-5); Hematocrit 36.9 % (40-54); Hemoglobin 12.4 g/dL (13.0-16.5); Lymphocyte # 1.66 X10^3/ul (0.83-4.51); Lymphocyte % 23.8 % (19-41); Mean Corp Hgb Conc 33.6 g/dL (32-36); Mean Corpuscular Hgb 31.9 pg (27.0-32.0); Mean Corpuscular Volume 94.9 fL (80-94); Monocyte# 0.65 X10^3/uL; Monocyte% 9.3 % (0-10); NRBC Flagged by Analyzer 0 % (0-5); Neutrophil # 4.46 X10^3/uL (2.7-7.7); Neutrophil % 63.9 % (47-70); Platelet Count 164 K/mm3 (150-450); RBC Distribution Width SD 55.9 fl (35.1-43.9); Red Blood Count 3.89 M/mm3 (4.6-6.2)
[2024-01-06] MEDS: 0.9% Normal Saline (500mL Bag) 500 ML 999 ML IV (10:43)
[2024-01-06 10:57] LABS: Anion Gap 7 (5-15); BUN 9 mg/dL (7-18); BUN/Creat Ratio 11.7 RATIO (10-20); Calcium,Total 8.3 mg/dL (8.5-10.1); Chloride 103 mmol/L (98-107); Creatinine, Serum 0.77 mg/dL (0.70-1.30); EST Glomerular Filtration Rate 108 mL/min (>60); Est Glom Filt Rate - Afr Amer 131 mL/min (>60); Glucose 130 mg/dL (74-106); Potassium 3.7 mmol/L (3.5-5.1); Sodium Level 136 mmol/L (136-145); Troponin-I HS < 3 pg/mL (3.0-78.0)
[2024-01-06 12:00] VITALS: BP 145/76; PULSE 64; RESP 16; O2SAT 97
--- NOTE | 2024-01-06 12:46 | ED.RN ---
pt's standing outside the room. states that he is getting very impatient, pt is dressed, and standing in the room. , this nurse updated pt and that results are back the dr. has to sit down and review everything.
[2024-01-06 13:12] VITALS: BP 124/78; PULSE 64; RESP 16; TEMP 36.4; O2SAT 99
== END 2024-01-06 13:13 | disposition home or self-care (01) ==
PROVIDERS: Emergency Provider Emergency Medicine; PCP Family Medicine; Visit Provider Emergency Medicine
DX: R06.02 Shortness of breath (principal); J44.1 Chronic obstructive pulmonary disease with (acute) exacerbation; F17.200 Nicotine dependence, unspecified, uncomplicated; R04.2 Hemoptysis; F41.9 Anxiety disorder, unspecified; F32.A Depression, unspecified; Z79.899 Other long term (current) drug therapy
CPT/HCPCS: 71275; 80048; 83880; 84484; 85025; 87631; 93005; 94640; 99284; J7030; Q9967; A4216

== ENCOUNTER 2024-11-13 08:36 | Inpatient (IN) | payer MEDICARE, SELFPAY ==
[2024-11-13] VITALS (7 sets, daily range): BP systolic 126–142; BP diastolic 59–69; PULSE 72–92; RESP 18–20; TEMP 36.8–37; O2SAT 92–97; BMI 19.1; BMI 19.2
--- NOTE | 2024-11-13 08:48 | EDS_ITS ---
HPI HPI - GI History of Present Illness Chief Complaint: Abd Pain Detail of Chief Complaint: Abdominal pain and back pain Informant: patient Narrative Narrative: Patient presents to the emergency department with complaint of abdominal pain pain in his back. Patient states that 4 years ago he was admitted to [facility] because he required placement of a stent in his bile duct that he had for about 3 months and then they removed it. He was diagnosed with chronic pancreatitis. Patient states that about 5 days ago started having increased jaundice. Patient is lost about 20 to 30 pounds in the last year. Patient started with vomiting about 5 days ago and worsening abdominal pain. He has not vomited about 2 days. No diarrhea. Family noticed some increased yellow discoloration to his eyes and skin. Patient is a smoker but no history of cancer. He has history of COPD. PFSH PFS Medical History Anxiety COPD (chronic obstructive pulmonary disease) Depression Marijuana use Neck fracture (~1994) Pneumonia due to COVID-19 virus Smoker Home Medications ?Medication ?Instructions ?Recorded ?Last Taken ?Type buspirone 30 mg tablet 30 mg PO TID ANXIETY 11/01/20 04/02/21 History citalopram 40 mg tablet 80 mg PO DAILY depression 04/02/21 04/02/21 History quetiapine 400 mg tablet (Seroquel) 400 mg PO QHS mood 04/02/21 04/01/21 History Allergy/AdvReac Type Severity Reaction Status Date / Time No Known Allergies Allergy Verified 11/13/24 08:37 Surgical History History of tonsillectomy and adenoidectomy Social History Smoking Status: Heavy Smoker (>10/day) substance use type: does not use ROS ROS ED Review of Systems ROS Unobtainable: other Constitutional Constitutional ED: Reports lethargy; Denies chills, fever(s), sweats or weight loss Eyes Eyes: Denies blurry vision, change in vision or diplopia ENT ENT ED: Denies rhinorrhea or sore throat Cardiovascular Cardiovascular: Denies chest pain, orthopnea or racing heartbeat Respiratory/Chest Respiratory/Chest: Denies cough, dyspnea, dyspnea on exertion, orthopnea or sput um Gastrointestinal Gastrointestinal: Reports abdominal pain, nausea and vomiting; Denies diarrhea Genitourinary Genitourinary ED: Denies dysuria, hematuria or urinary frequency Musculoskeletal Musculoskeletal: Reports back pain; Denies arthralgias, myalgias or neck pain Integumentary Denies abscess, Abrasions or rash Neurologic Neurologic: Denies headache(s) or weakness Psychiatric Psychiatric: Denies anxiety, depression or suicidal thoughts Endocrine Endocrinology: Denies polydipsia, polyphagia or polyuria Hematologic/Lymphatic Hematologic/Lymphatic: Denies easy bleeding, easy bruising or lymphadenopathy Allergic/Immunologic Allergic/Immunologic ED: Denies mouth swelling, tongue swelling or urticaria EXAM Physical Exam Const Vital Signs: 11/13/24 08:37 11/13/24 10:37 11/13/24 12:00 Temperature 98.6 F Temperature Source Oral Pulse Rate 92 79 77 Respiratory Rate 18 19 H 18 Blood Pressure 126/60 H 142/59 H 140/62 H Blood Pressure Mean 82 86 88 Pulse Ox 97 93 95 Oxygen Delivery Method Room Air Room Air Room Air 11/13/24 13:59 11/13/24 14:28 Temperature 98.3 F Temperature Source Pulse Rate 72 78 Respiratory Rate 19 H 18 Blood Pressure 137/64 H 141/66 H Blood Pressure Mean 88 91 Pulse Ox 92 94 Oxygen Delivery Method Room Air Positive well nourished, well developed and cachectic General Appearance ED: well developed, cachectic and NAD Nutritional Appearance: cachectic HEENT Reports TM's clear and moist mucous membranes HEENT Narrative: Patient will scleral icterus normocephalic and atraumatic; Negative for trauma or tenderness Tympanic Membrane ED: Yes TM's clear Eyes PERRL and EOMs intact bilaterally General Eye ED: Yes scleral icterus; Negative for pale conjunctiva Neck no lymphadenopathy, supple and no JVD General: Negative for tenderness Chest Wall inspection of chest normal and palpation of chest normal Chest: Negative for tenderness Resp normal respiratory effort and clear to auscultation bilaterally Effort and Inspection: Negative for respiratory distress or pain with movement Auscultation: Negative for rhonchi, wheezes or diminished lung sounds Cardio regular rate, regular rhythm, S1 normal heart sound, S2 normal heart sound and no murmurs Peripheral Pulses: pulses 2+ throughout GI normal to inspection, nondistended, normoactive bowel sounds, soft to palpation, non-distended and no masses GI Narrative: Diffuse tenderness over the epigastric region and left upper quadrant with guarding. There is no rebound, rigidity, or peritoneal signs. No mass palpat ed. Back/Spine no CVA tenderness and no thoracic nor lumbar tenderness Extremity normal to inspection General Extremety ED: Negative for edema General Extremity: Negative for edema Neuro oriented x3, CN's II-XII intact bilaterally, no sensory deficits noted and gait normal Sensorium / Orientation: awake, alert, oriented to person, oriented to place and oriented to time Motor Exam: strength 5/5 throughout and strength abnormal Psych mental status grossly normal Skin no rashes or lesions noted and no wounds MDM MDM MDM Narrative Medical decision making narrative: Patient presents with abdominal pain and weight loss and jaundice. IV line established. CBC with differential obtained showed a white count of 14.1 with hemoglobin 11.9 platelet count of 156. Chemistry showed sodium of 116 with potassium 4.8 and chloride of 83 with CO2 of 21. Glucose was 932. Anion gap was 12. Total bilirubin 10.9 as well as AST of 76 and ALT of 105 and alk phos of 511. Lipase elevated 149. CT scan of the abdomen pelvis showed dilated biliary ducts. Patient also has chronic calcifications in the pancreas consistent with chronic pancreatitis. Patient had evidence of portal venous hypertension. Patient had evidence of pancreatic pseudocyst. Chest x-ray obtained showed mild opacity or infiltrate in the right upper lobe which is new from prior exam. Also on CT of the abdomen pelvis is noted that he has infiltrates in the right lower lobe. Patient had blood cultures ordered. Patient was started on Levaquin IV. Patient was ordered a liter normal saline fluid bolus x 2. Patient was given insulin lispro 15 units subcu. GI is not on-call today. Will transfer patient as he has been to [facility] before where he had his stent placed 4 years ago. Will contact [facility] to try to arrange transfer to their facility for definitive care. Discussed case with [facility] who does not have bed available currently although he was accepted for transfer to their facility once a bed becomes available. Will discuss with hospitalist to evaluate patient for admission Lab Data Attestation: I reviewed the patient's lab results. Labs: Laboratory Results - last 24 hr 11/13/24 11/13/24 08:57 13:46 WBC 14.1 H RBC 3.59 L Hgb 11.9 L Hct 35.1 L MCV 97.8 H MCH 33.1 H MCHC 33.9 RDW Std Deviation 53.2 H RDW Coeff of Billy 14.7 H Plt Count 156 MPV 13.7 H Immature Gran % (Auto) 2.700 H Neut % (Auto) 86.5 H Lymph % (Auto) 5.1 L Hawkins % (Auto) 5.2 Eos % (Auto) 0.1 Baso % (Auto) 0.4 Absolute Neuts (auto) 12.2 H Absolute Lymphs (auto) 0.72 L Nucleated RBC % 0 Sodium 116 L* Potassium 4.8 Chloride 83 L Carbon Dioxide 21.0 Anion Gap 12 BUN 26 H Creatinine 1.05 Estim Creat Clear Calc 62.51 Est GFR (MDRD) Af Amer 91 Est GFR (MDRD) Non-Af 75 BUN/Creatinine Ratio 24.8 H Glucose 932 H* Calcium 8.9 Total Bilirubin 10.90 H AST 76 H ALT 105 H Alkaline Phosphatase 511 H Total Protein 6.5 Albumin 2.3 L Globulin 4.2 Albumin/Globulin Ratio 0.5 L Lipase 149 H POC Glucose 390 H Radiography Diagnostic Testing: Clinical Impression(s) from Imaging Studies Abdomen/Pelvis CT 11/13/24 08:48 IMPRESSION: 1. Extensive pancreatic calcifications consistent with chronic pancreatitis. 2. Dilated intrahepatic biliary ducts and common bile ducts. 3. Few cystic lesions adjacent to the stomach and pancreas could reflect pancreatic pseudocysts. Small abscesses are less likely. 4. Collateral veins in the splenic hilum, leila hepatis and around the gallbladder which may reflect portal venous hypertension. 5. Mild free fluid in the pelvis. Electronically Signed: Bar Chong MD at 10:41 EST Reading Location ID and State: [facility] / [place] Tel , Service support , Chest X-Ray 11/13/24 09:18 IMPRESSION: 1. Chronic changes in right lower lung. 2. Mild opacity/infiltrate in the right upper lobe new since previous exam. Electronically Signed: Bar Chong MD at 10:22 EST , Discharge Plan Triage Chief Complaint: Abd Pain ED Provider: Lina Perez Dx/Rx/DC Orders Clinical Impression: Hyperbilirubinemia, Hyperglycemia, Acute hyponatremia, Acute on chronic pancreatitis, Pneumonia Prescriptions: No Action buspirone 30 MG tablet 30 mg PO TID citalopram 40 mg Tablet 80 mg PO DAILY quetiapine [Seroquel] 400 mg Tablet 400 mg PO QHS Primary Care Provider: Sameer Ruiz Referrals: Sameer Ruiz MD [Primary Care Provider] - Print Language: Congolese Disposition Disposition: Acute Care Hospital [facility]
--- NOTE | 2024-11-13 08:48 | CT_ITS ---
STUDY: CT ABDOMEN AND PELVIS WITH CONTRAST REASON FOR EXAM: Male, 64 years old. Abdominal pain RADIATION DOSAGE (If Supplied By Facility): CTDIvol = ( 11.51 ) mGy, DLP = ( 673.89 ) mGycm TECHNIQUE: IV 100mL Isovue-300 was administered. Transaxial images were obtained from the dome of the diaphragm to the symphysis pubis. Multiplanar coronal and sagittal images were reformatted. The protocol utilizes one or more of the following dose reduction techniques: automated exposure control, adjustment of mA and/or kV according to patient size,and/or use of iterative reconstruction technique. COMPARISON: Prior study dated: 07/31/2021 FINDINGS: Patchy infiltrates in the right lower lung concerning for pneumonia. Bilateral pleural calcifications. The visualized portions of the heart are within normal limits. Normal liver. No evidence of gallstones. Dilated intrahepatic biliary ducts and common bile duct. Borderline splenomegaly. Extensive pancreatic calcifications consistent with chronic pancreatitis markedly worse than the previous exam. Dilated pancreatic duct. Cystic lesion abutting the lesser curvature of the stomach measuring about 2.5 cm. Another cystic lesion slightly more inferiorly measuring about 2.8 cm inferior to the pancreas. Small cystic lesion adjacent to the head of the pancreas. Collateral veins in the splenic hilum, leila hepatis and around the gallbladder. Normal bilateral adrenal glands. No evidence of hydronephrosis. Bilateral renal calcifications appear to be vascular. Somewhat distended stomach. Mildly dilated duodenum. Nonspecific fluid-filled normal caliber small bowel loops without evidence of bowel obstruction. Fecal retention. No evidence of acute diverticulitis. The appendix is visualized and appears normal. There is diffuse atherosclerotic calcification of the abdominal aorta, without a demonstrated aneurysm. No retroperitoneal adenopathy. Normal urinary bladder. Fluid in the pelvis. Normal abdominal wall. Degenerative changes of the spine. CT/Abdomen/Pelvis W IV Cont ONLY IMPRESSION: 1. Extensive pancreatic calcifications consistent with chronic pancreatitis. 2. Dilated intrahepatic biliary ducts and common bile ducts. 3. Few cystic lesions adjacent to the stomach and pancreas could reflect pancreatic pseudocysts. Small abscesses are less likely. 4. Collateral veins in the splenic hilum, leila hepatis and around the gallbladder which may reflect portal venous hypertension. 5. Mild free fluid in the pelvis. Electronically Signed: Bar Chong MD at 10:41 EST ,
[2024-11-13] MEDS: 0.9% Normal Saline (1000mL) 1,000 ML 999 ML IV ×2 (08:57→10:15)
[2024-11-13] MEDS: Ondansetron 4 MG/2 ML Vial IV (08:58)
[2024-11-13] MEDS: HYDROmorphone 1 MG/ML Syringe IV ×2 (08:58→12:00)
[2024-11-13 09:13] LABS: Absolute Lymphocyte Count 0.72 X10^3/uL (0.83-4.51); Absolute Neutrophil Count 12.2 X10^3/uL (2.0-7.7); Basophil# 0.06 X10^3/uL; Basophil% 0.4 % (0-1); Eosinophil# 0.01 X10^3/uL; Eosinophils% 0.1 % (0-5); Hematocrit 35.1 % (40-54); Hemoglobin 11.9 g/dL (13.0-16.5); Lymphocyte # 0.72 X10^3/ul (0.83-4.51); Lymphocyte % 5.1 % (19-41); Mean Corp Hgb Conc 33.9 g/dL (32-36); Mean Corpuscular Hgb 33.1 pg (27.0-32.0); Mean Corpuscular Volume 97.8 fL (80-94); Mean Platelet Vol. 13.7 fl (6.2-12.0); Monocyte# 0.74 X10^3/uL; Monocyte% 5.2 % (0-10); NRBC Flagged by Analyzer 0 % (0-5); Neutrophil # 12.21 X10^3/uL (2.7-7.7); Neutrophil % 86.5 % (47-70); Platelet Count 156 K/mm3 (150-450); RBC Distribution Width CV 14.7 % (11.6-14.6); RBC Distribution Width SD 53.2 fl (35.1-43.9); Red Blood Count 3.59 M/mm3 (4.6-6.2); White Blood Count 14.1 K/mm3 (4.4-11.0)
--- NOTE | 2024-11-13 09:18 | RAD_ITS ---
INDICATION: Copd EXAMINATION/TECHNIQUE: X-RAY - XR Chest 2 Views COMPARISON: Prior study dated: 1720 FINDINGS: LINES/DEVICES: None. LUNGS: Patchy opacity right lower lung unchanged prior exam probably due to scarring. Vague opacity right upper lobe. No evidence of pleural effusions. MEDIASTINUM AND CARDIOVASCULAR STRUCTURES: Cardiac silhouette not enlarged. Central airways and mediastinal contour are unremarkable. BONES AND SOFT TISSUES: Unchanged RAD/Chest PA and Lateral IMPRESSION: 1. Chronic changes in right lower lung. 2. Mild opacity/infiltrate in the right upper lobe new since previous exam. Electronically Signed: Bar Chong MD at 10:22 EST ,
[2024-11-13 09:53] LABS: ALB/GLOB Ratio 0.5 RATIO (0.9-2.4); AST(SGOT) 76 U/L (15-37); Alanine Aminotransfer ALT/SGPT 105 U/L (16-61); Albumin, Serum 2.3 g/dL (3.2-5.0); Alkaline Phosphatase 511 U/L (45-117); Anion Gap 12 (5-15); BUN 26 mg/dL (7-18); BUN/Creat Ratio 24.8 RATIO (10-20); Calcium,Total 8.9 mg/dL (8.5-10.1); Chloride 83 mmol/L (98-107); Creatinine, Serum 1.05 mg/dL (0.70-1.30); EST Glomerular Filtration Rate 75 mL/min (>60); Est Glom Filt Rate - Afr Amer 91 mL/min (>60); Estimated Creatinine Clearance 62.51 ml/min; Globulin 4.2 g/dL (2.2-4.2); Glucose 932 mg/dL (74-106); Lipase 149 U/L (13-75); Potassium 4.8 mmol/L (3.5-5.1); Protein, Total 6.5 g/dL (6.4-8.2); Sodium Level 116 mmol/L (136-145)
[2024-11-13] MEDS: Insulin Lispro 100 UNIT/ML INSULN.PEN 15 UNIT SC (10:16)
[2024-11-13] MEDS: levoFLOXacin IV 750 MG/150 ML BAG 100 MG IV (11:42)
--- NOTE | 2024-11-13 13:54 | ED.RN ---
CALLED [facility] STILL WAITING FOR AN UPDATE FROM THEN 1329
[2024-11-13 14:05] LABS: Bedside Glucose 390 mg/dL (74-106)
--- NOTE | 2024-11-13 14:54 | HP.PCM.HOS_ITS ---
[facility] Date of Admission: 11/13/24 Date of Service: 11/13/24 Chief Complaint: Abdominal pain and back pain [facility] Narrative YARELY JORDAN, is a 64 M who presented to [facility] ED on 11/13/2024 with worsening abdominal pain and mid back pain. Patient has history of chronic pancreatitis. In previous hospitalization at [facility] about 4 years ago for similar presentation and had stent placed in the bile duct for about 3 months followed by removal. Notes he was diagnosed with chronic pancreatitis at that time. Patient states that he began to have worsening abdominal pain with mid back pain along with nausea with vomiting and jaundice starting about 5 days ago. He has lost 20 to 30 pounds in the last year. Denies any history of diabetes. Given his worsening symptoms he came to the ED for further evaluation. In the ED he was hemodynamically stable on room air. Labs are notable for WBC count 14, sodium 116, chloride 83, creatinine 1.05 (baseline 0.7-0.8), glucose 932, T. bili 10.90, AST 76, ALT 105, alk phos 511, lipase 149. CT abdomen pelvis showed extensive pancreatic calcifications consistent with chronic pancreatitis, dilated intrahepatic biliary ducts and common bile ducts, few cystic lesions adjacent to the stomach pancreas concerning for pancreatic pseudocyst and mild free fluid in the pelvis. Given his significant labs and imaging findings, ED physician discussed with [facility] and patient was accepted for transfer there. However there was no bed available after 6 hours so hospitalist was contacted for admission here. I saw the patient at bedside in the ED. Patient was given 2 doses of IV Dilaudid and a dose of IV Zofran prior to my encounter with him and reported moderate improvement in his symptoms with these things. He was also 2 L of normal saline and a dose of Humalog 15 units with improvement in his blood sugar to the 300s. He currently reports very mild back pain and states he has no appetite right now. He otherwise denies any other acute concerns. [facility] Medical History Anxiety COPD (chronic obstructive pulmonary disease) Depression Marijuana use Neck fracture (~1994) Pneumonia due to COVID-19 virus Smoker Home Medications ?Medication ?Instructions ?Recorded ?Last Taken ?Type buspirone 30 mg tablet 30 mg PO TID ANXIETY 11/01/20 04/02/21 History citalopram 40 mg tablet 80 mg PO DAILY depression 04/02/21 04/02/21 History quetiapine 400 mg tablet (Seroquel) 400 mg PO QHS mood 04/02/21 04/01/21 History Allergy/AdvReac Type Severity Reaction Status Date / Time No Known Allergies Allergy Verified 11/13/24 08:37 Surgical History History of tonsillectomy and adenoidectomy Social History Smoking Status: Heavy Smoker (>10/day) substance use type: does not use ROS Constitutional Constitutional: Reports fatigue; Denies chills, fever(s) or weakness Eyes Eyes: Denies change in vision Cardiovascular Cardiovascular: Denies chest pain Respiratory/Chest Respiratory/Chest: Denies cough or shortness of breath at rest Gastrointestinal Gastrointestinal: Reports abdominal pain, nausea and vomiting; Denies constipation or diarrhea Genitourinary Genitourinary: Denies dysuria Musculoskeletal Musculoskeletal: Denies arthralgias or myalgias Neurologic Neurologic: Denies dizziness, focal weakness or headache(s) Vital Signs Vital Signs Vital Signs: 11/13/24 08:37 11/13/24 10:37 11/13/24 12:00 Temperature 98.6 F Temperature Source Oral Pulse Rate 92 79 77 Respiratory Rate 18 19 H 18 Blood Pressure 126/60 H 142/59 H 140/62 H Blood Pressure Mean 82 86 88 Pulse Ox 97 93 95 Oxygen Delivery Method Room Air Room Air Room Air 11/13/24 13:59 11/13/24 14:28 Temperature 98.3 F Temperature Source Pulse Rate 72 78 Respiratory Rate 19 H 18 Blood Pressure 137/64 H 141/66 H Blood Pressure Mean 88 91 Pulse Ox 92 94 Oxygen Delivery Method Room Air Weight Weight: 63.866 kg Body Mass Index (BMI) 19.1 Physical Exam Const alert, oriented x3 and no apparent distress Constitutional Narrative: Elderly male, thin and somewhat cachectic appearing, whole-body jaundice noted, otherwise sitting up fairly comfortably in bed, conversing normally, in no acute distress. General Appearance: cooperative and comfortable HEENT normocephalic, head/scalp atraumatic, hearing grossly normal bilaterally, nasal mucous membranes and turbinates normal and moist oral mucous membranes Eyes PERRL, EOMs intact bilaterally and conjunctivae normal Neck full ROM Chest inspection of chest normal Resp normal respiratory effort, normal air movement, no use of accessory muscles and clear to auscultation bilaterally Cardio regular rate, regular rhythm, no murmurs and peripheral pulses 2+ throughout GI GI Narrative: Mild tenderness to palpation in epigastric region. Otherwise abdomen soft and nondistended. Back/Spine normal ROM Extremity normal to inspection, full ROM and no pedal edema Skin Skin Narrative: Whole-body jaundice noted. Psych mental status grossly normal Results Lab / Micro Data 11/13/24 08:57 11/13/24 08:57 Labs: Laboratory Results - last 24 hr 11/13/24 08:57: WBC 14.1 H, RBC 3.59 L, Hgb 11.9 L, Hct 35.1 L, MCV 97.8 H, MCH 33.1 H, MCHC 33.9, RDW Std Deviation 53.2 H, RDW Coeff of Billy 14.7 H, Plt Count 156, MPV 13.7 H, Immature Gran % (Auto) 2.700 H, Neut % (Auto) 86.5 H, Lymph % (Auto) 5.1 L, Crisp % (Auto) 5.2, Eos % (Auto) 0.1, Baso % (Auto) 0.4, Absolute Neuts (auto) 12.2 H, Absolute Lymphs (auto) 0.72 L, Nucleated RBC % 0, Sodium 116 L*, Potassium 4.8, Chloride 83 L, Carbon Dioxide 21.0, Anion Gap 12, BUN 26 H, Creatinine 1.05, Estim Creat Clear Calc 62.51, Est GFR (MDRD) Af Amer 91, Est GFR (MDRD) Non-Af 75, BUN/Creatinine Ratio 24.8 H, Glucose 932 H*, Calcium 8.9, Total Bilirubin 10.90 H, AST 76 H, ALT 105 H, Alkaline Phosphatase 511 H, Total Protein 6.5, Albumin 2.3 L, Globulin 4.2, Albumin/Globulin Ratio 0.5 L, Lipase 149 H 11/13/24 13:46: POC Glucose 390 H Imaging Radiology Impression Abdomen/Pelvis CT 11/13/24 08:48 IMPRESSION: 1. Extensive pancreatic calcifications consistent with chronic pancreatitis. 2. Dilated intrahepatic biliary ducts and common bile ducts. 3. Few cystic lesions adjacent to the stomach and pancreas could reflect pancreatic pseudocysts. Small abscesses are less likely. 4. Collateral veins in the splenic hilum, leila hepatis and around the gallbladder which may reflect portal venous hypertension. 5. Mild free fluid in the pelvis. Electronically Signed: Bar Chong MD at 10:41 EST , Chest X-Ray 11/13/24 09:18 IMPRESSION: 1. Chronic changes in right lower lung. 2. Mild opacity/infiltrate in the right upper lobe new since previous exam. Electronically Signed: Bar Chong MD at 10:22 EST , Assessment & Plan Assessment/Plan (1) Acute on chronic pancreatitis: (2) Hyperbilirubinemia: (3) Hyperglycemia: (4) Acute hyponatremia: PLAN: Plan Patient is a 64-year-old male who presented to [facility] ED on 11/13/2024 with worsening abdominal pain with back pain. 1. 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 Admit under inpatient status to [facility]. Patient accepted for transfer to [facility], awaiting bed placement. Presented with worsening abdominal pain with back pain, nausea/vomiting and jaundice. Labs notable for T. bili 10.9, AST 76, ALT 105, alk phos 511. CT abdomen pelvis showed extensive pancreatic calcifications consistent with chronic pancreatitis, dilated intrahepatic biliary ducts and common bile ducts, few cystic lesions adjacent to the stomach pancreas concerning for pancreatic pseudocyst and mild free fluid in the pelvis. Given 2 L IV fluids in the ED. Okay for clear liquid diet for now, will keep n.p.o. at midnight in case of transfer and need for procedure tomorrow. Pain control with oxycodone and IV Dilaudid as needed. 2. Severe hyperglycemia with new onset diabetes ? Blood glucose 932 on admit. A1c 9.8%. Patient denies history of diabetes. 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 Given Humalog 15 units in the ED with improvement in blood sugars to 300s. Will treat with sliding scale insulin while inpatient here. 3. Mild creatinine elevation with dehydration ? Creatinine 1.05 on admit, baseline around 0.7-0.8. Presumed secondary to dehydration in setting of severe hyperglycemia and poor p.o. intake as noted above. Given 2 L of IV fluids in the ED. Follow-up a.m. BMP and monitor urine output. 4. Hyponatremia ? Sodium 116 in the ED, corrected sodium 129. Chloride low at 83. Presume secondary to dehydration as noted above. Given 2 L IV fluids in the ED, follow- up a.m. sodium level. 5. Tobacco use disorder ? Smokes about 1 pack/day of cigarettes. Nicotine patch ordered per patient request. Discussed cessation. 6. Anxiety/depression ? Continue home BuSpar, citalopram and Seroquel at night. DVT prophylaxis: Lovenox CODE STATUS: Full code, verified Expected disposition: Transfer to [facility] Total clinical time spent by myself addressing the patient's medical issues, reviewing all the data, and collaborating with patient's care team: 75 minutes. Charges/Coding Visit Charges Inpatient E&M: 51340 Init Hosp L3
[2024-11-13] MEDS: HYDROmorphone 0.5 MG/0.5 ML SYRINGE IV ×2 (16:12→20:52)
[2024-11-13] MEDS: 0.9% Saline Lock 10 ML Syringe IV ×2 (16:13→20:52)
[2024-11-13] MEDS: Insulin Lispro 100 UNIT/ML INSULN.PEN SC ×2 (16:21→21:00)
[2024-11-13 16:35] LABS: Bedside Glucose 326 mg/dL (74-106)
[2024-11-13 17:02] LABS: Hemoglobin A1c 9.8 % (3.8-5.6)
[2024-11-13] MEDS: busPIRone 15 MG TABLET 30 MG PO (21:00)
[2024-11-13] MEDS: QUEtiapine 100 MG Tablet 300 MG PO (21:00)
[2024-11-13 23:40] LABS: Bedside Glucose 227 mg/dL (74-106)
[2024-11-14] VITALS (8 sets, daily range): BP systolic 100–146; BP diastolic 58–68; PULSE 70–80; RESP 14–20; TEMP 36.4–37.2; O2SAT 93–98
[2024-11-14 05:20] LABS: Hematocrit 31.6 % (40-54); Hemoglobin 11.4 g/dL (13.0-16.5); Mean Corp Hgb Conc 36.1 g/dL (32-36); Mean Corpuscular Hgb 33.6 pg (27.0-32.0); Mean Corpuscular Volume 93.2 fL (80-94); Mean Platelet Vol. 13.5 fl (6.2-12.0); Platelet Count 148 K/mm3 (150-450); RBC Distribution Width CV 14.6 % (11.6-14.6); RBC Distribution Width SD 49.3 fl (35.1-43.9); Red Blood Count 3.39 M/mm3 (4.6-6.2); White Blood Count 10.2 K/mm3 (4.4-11.0)
[2024-11-14] MEDS: 0.9% Saline Lock 10 ML Syringe IV ×4 (06:01→21:41)
[2024-11-14] MEDS: HYDROmorphone 0.5 MG/0.5 ML SYRINGE IV ×4 (06:01→21:20)
[2024-11-14] MEDS: Piperacil/Tazobactam 3.375 GM in 0.9% Normal Saline (50mL MB+) 50 ML IV ×3 (06:04→21:43)
[2024-11-14] MEDS: busPIRone 15 MG TABLET 30 MG PO ×3 (06:07→21:41)
[2024-11-14] MEDS: Insulin Lispro 100 UNIT/ML INSULN.PEN SC ×4 (06:12→21:37)
[2024-11-14 07:16] LABS: ALB/GLOB Ratio 0.5 RATIO (0.9-2.4); AST(SGOT) 80 U/L (15-37); Alanine Aminotransfer ALT/SGPT 99 U/L (16-61); Albumin, Serum 1.9 g/dL (3.2-5.0); Alkaline Phosphatase 431 U/L (45-117); Anion Gap 5 (5-15); BUN 17 mg/dL (7-18); BUN/Creat Ratio 33.7 RATIO (10-20); Calcium,Total 8.6 mg/dL (8.5-10.1); Chloride 98 mmol/L (98-107); EST Glomerular Filtration Rate 175 mL/min (>60); Est Glom Filt Rate - Afr Amer 211 mL/min (>60); Estimated Creatinine Clearance 82.74 ml/min; Globulin 4.1 g/dL (2.2-4.2); Glucose 261 mg/dL (74-106); Potassium 3.8 mmol/L (3.5-5.1); Sodium Level 128 mmol/L (136-145)
[2024-11-14 07:20] LABS: Bedside Glucose 280 mg/dL (74-106)
[2024-11-14] MEDS: Enoxaparin 40 MG/0.4 ML Syringe SC (09:39)
[2024-11-14] MEDS: Citalopram 40 MG TABLET PO (09:39)
[2024-11-14 11:36] LABS: Bedside Glucose 200 mg/dL (74-106)
--- NOTE | 2024-11-14 12:56 | PCM.PN.HOSP ---
Reason for Visit Reason for Visit: Diagnoses Other disorders of bilirubin metabolism (11/13/24) Hypo-osmolality and hyponatremia (11/13/24) Acute pancreatitis without necrosis or infection, unspecified (11/13/24) Other chronic pancreatitis (11/13/24) Hyperglycemia, unspecified (11/13/24) Objective Data Objective Data Vital Signs: Vital Signs Temp Pulse Resp BP Pulse Ox O2 Del Method 97.5 F L 73 16 100/58 L 93 Room Air 11/14/24 08:05 11/14/24 08:05 11/14/24 08:05 11/14/24 08:05 11/14/24 08:30 11/14/24 08:30 Oxygen Delivery Method Room Air Weight: 141 lb 15.643 oz Body Mass Index (BMI) 19.2 Intake & Output: Intake and Output for Last 24 Hours 11/12/24 11/13/24 11/14/24 23:59 23:59 23:59 Intake Total 2350 / 2350 50 / 50 Balance 2350 / 2350 50 / 50 Lab / Micro Data 11/14/24 04:29 11/14/24 04:29 Labs: Laboratory Results - last 24 hr 11/13/24 08:57: Hemoglobin A1c 9.8 H 11/13/24 13:46: POC Glucose 390 H 11/13/24 16:18: POC Glucose 326 H 11/13/24 20:51: POC Glucose 227 H 11/14/24 04:29: WBC 10.2, RBC 3.39 L, Hgb 11.4 L, Hct 31.6 L, MCV 93.2, MCH 33.6 H, MCHC 36.1 H D, RDW Std Deviation 49.3 H, RDW Coeff of Billy 14.6, Plt Count 148 L, MPV 13.5 H, Sodium 128 L, Potassium 3.8, Chloride 98, Carbon Dioxide 25.0, Anion Gap 5, BUN 17, Creatinine 0.50 L, Estim Creat Clear Calc 82.74, Est GFR (MDRD) Af Amer 211, Est GFR (MDRD) Non-Af 175, BUN/Creatinine Ratio 33.7 H, Glucose 261 H, Calcium 8.6, Total Bilirubin 8.30 H, AST 80 H, ALT 99 H, Alkaline Phosphatase 431 H, Total Protein 6.0 L, Albumin 1.9 L, Globulin 4.1, Albumin/Globulin Ratio 0.5 L 11/14/24 06:11: POC Glucose 280 H 11/14/24 10:56: POC Glucose 200 H Micro: Microbiology 11/13/24 11:40 Blood Culture (Wb) - Venous Blood Culture - 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 About 4 years ago patient required a stent in bile duct and was moved out of 3 months. Lost 20 to 30 pounds in last 1 year. Started vomiting, continued for 5 days but stopped 2 days before admission.No diarrhea 1. 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 Admit under inpatient status to [facility]. Patient accepted for transfer to [facility], awaiting bed placement. Labs notable for T. bili 10.9, AST 76, ALT 105, alk phos 511. CT abdomen pelvis showed extensive pancreatic calcifications consistent with chronic pancreatitis, dilated intrahepatic biliary ducts and common bile ducts, few cystic lesions of pancreas about 2.5 cm, 2.8 cm concerning for pancreatic pseudocyst and mild free fluid in the pelvis. Collateral veins in the splenic hilum, leila hepatis and around GB and borderline splenomegaly concerning for portal hypertension. Although reported normal liver with no evidence of gallstones. Patient was distended. Pain control. 11/14: Improving total bilirubin, transaminases and alkaline phosphatase. Severe hypoalbuminemia. Patient still has pain but prefers some liquid food. Clear liquids allowed with monitoring of abdominal pain. Bowel movement is normal. Nausea and vomiting resolved. 2. Severe hyperglycemia with new onset diabetes ? Blood glucose 932 on admit. A1c 9.8%. Patient denies history of diabetes. 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 Given Humalog 15 units in the ED with improvement in blood sugars to 300s. Will treat with sliding scale insulin while inpatient here. 11/14: Glucose 261. Humalog and Lantus insulin ordered 3. Mild creatinine elevation with dehydration ? Creatinine 1.05 on admit, baseline around 0.7-0.8. Presumed secondary to dehydration in setting of severe hyperglycemia and poor p.o. intake as noted above. Given 2 L of IV fluids in the ED. Follow-up a.m. BMP and monitor urine output. 4. Hyponatremia ? Sodium 116 in the ED, corrected sodium 129. Chloride low at 83. Presume secondary to dehydration as noted above. Given 2 L IV fluids in the ED, follow-up a.m. sodium level. 11/14: Sodium is improving. Increased from 116- 228, 12 mEq. IV D5 ordered to lower the serum sodium. 5. Tobacco use disorder ? Smokes about 1 pack/day of cigarettes. Nicotine patch ordered per patient request. Discussed cessation. 6. Anxiety/depression ? Continue home BuSpar, citalopram and Seroquel at night. DVT prophylaxis: Lovenox CODE STATUS: Full code, verified Charges/Coding Visit Charges Inpatient E&M: 32021 Subs Hosp L2
[2024-11-14 16:31] LABS: Bedside Glucose 342 mg/dL (74-106)
[2024-11-14] MEDS: DEXTROSE 5% IV (18:46)
[2024-11-14] MEDS: POTASSIUM CHLORIDE IV (18:46)
[2024-11-14] MEDS: WATER IV (18:46)
[2024-11-14] MEDS: Insulin Glargine-YFGN 100 UNIT/ML Pen 15 UNIT SC (21:36)
[2024-11-14] MEDS: QUEtiapine 100 MG Tablet 300 MG PO (21:42)
[2024-11-15 01:46] LABS: Bedside Glucose 276 mg/dL (74-106)
[2024-11-15 03:25] VITALS: BP 144/68; PULSE 73; RESP 18; TEMP 36.9; O2SAT 96
[2024-11-15] MEDS: HYDROmorphone 0.5 MG/0.5 ML SYRINGE IV ×5 (03:28→21:09)
[2024-11-15 03:32] VITALS: BP 144/68; PULSE 73; RESP 18; TEMP 36.9; O2SAT 96
[2024-11-15] MEDS: Piperacil/Tazobactam 3.375 GM in 0.9% Normal Saline (50mL MB+) 50 ML IV ×3 (06:10→21:09)
[2024-11-15] MEDS: busPIRone 15 MG TABLET 30 MG PO ×3 (06:10→21:37)
[2024-11-15 06:29] LABS: Absolute Lymphocyte Count 1.91 X10^3/uL (0.83-4.51); Absolute Neutrophil Count 5.6 X10^3/uL (2.0-7.7); Basophil# 0.06 X10^3/uL; Basophil% 0.7 % (0-1); Eosinophil# 0.23 X10^3/uL; Eosinophils% 2.6 % (0-5); Hematocrit 32.2 % (40-54); Hemoglobin 11.3 g/dL (13.0-16.5); Lymphocyte # 1.91 X10^3/ul (0.83-4.51); Lymphocyte % 21.4 % (19-41); Mean Corp Hgb Conc 35.1 g/dL (32-36); Mean Corpuscular Hgb 32.7 pg (27.0-32.0); Mean Corpuscular Volume 93.1 fL (80-94); Mean Platelet Vol. 12.7 fl (6.2-12.0); NRBC Flagged by Analyzer 0 % (0-5); Neutrophil # 5.57 X10^3/uL (2.7-7.7); Neutrophil % 62.4 % (47-70); Platelet Count 184 K/mm3 (150-450); RBC Distribution Width CV 15.1 % (11.6-14.6); RBC Distribution Width SD 50.8 fl (35.1-43.9); Red Blood Count 3.46 M/mm3 (4.6-6.2); White Blood Count 8.9 K/mm3 (4.4-11.0)
[2024-11-15 06:59] LABS: AST(SGOT) 53 U/L (15-37); Alanine Aminotransfer ALT/SGPT 80 U/L (16-61); Albumin, Serum 1.8 g/dL (3.2-5.0); Alkaline Phosphatase 406 U/L (45-117); Anion Gap 7 (5-15); BUN 11 mg/dL (7-18); BUN/Creat Ratio 21.8 RATIO (10-20); Bilirubin, Direct 4.96 mg/dL (0.00-0.30); Calcium,Total 8.1 mg/dL (8.5-10.1); Chloride 97 mmol/L (98-107); EST Glomerular Filtration Rate 175 mL/min (>60); Est Glom Filt Rate - Afr Amer 211 mL/min (>60); Estimated Creatinine Clearance 82.74 ml/min; Glucose 133 mg/dL (74-106); Protein, Total 5.8 g/dL (6.4-8.2); Sodium Level 130 mmol/L (136-145)
[2024-11-15] MEDS: Insulin Glargine-YFGN 100 UNIT/ML Pen 15 UNIT SC (08:05)
[2024-11-15] MEDS: Insulin Lispro 100 UNIT/ML INSULN.PEN SC ×3 (08:05→21:44)
[2024-11-15] MEDS: Insulin Lispro 100 UNIT/ML INSULN.PEN 7 UNIT SC ×3 (08:06→16:20)
[2024-11-15] MEDS: Enoxaparin 40 MG/0.4 ML Syringe SC (08:08)
[2024-11-15] MEDS: Citalopram 40 MG TABLET PO (08:08)
[2024-11-15] MEDS: 0.9% Saline Lock 10 ML Syringe IV ×2 (08:08→12:12)
[2024-11-15 08:55] LABS: Bedside Glucose 155 mg/dL (74-106)
[2024-11-15 09:25] VITALS: BP 127/59; PULSE 76; RESP 16; TEMP 36.3; O2SAT 96
--- NOTE | 2024-11-15 10:35 | CASEMGMT ---
Pt with plans to trf to [facility], awaiting bed. Assessment deferred at this time.
[2024-11-15 11:29] LABS: Bedside Glucose 154 mg/dL (74-106)
--- NOTE | 2024-11-15 12:14 | NURSING ---
talked with Bed Coordinator at [facility], states still have no bed for patient at this time, stated they are at capacity and unsure if it will happen today.
[2024-11-15] MEDS: Potassium Chloride Oral Tablet 20 MEQ 40 MEQ PO ×2 (13:51→16:19)
[2024-11-15] MEDS: Magnesium Chloride 64 MG Delay Rel.Tablet 128 MG PO ×2 (13:52→21:38)
[2024-11-15 15:30] VITALS: BP 136/63; PULSE 74; RESP 16; TEMP 36.8; O2SAT 98
--- NOTE | 2024-11-15 15:48 | PCM.PN.HOSP ---
Reason for Visit Reason for Visit: Diagnoses Other disorders of bilirubin metabolism (11/13/24) Hypo-osmolality and hyponatremia (11/13/24) Acute pancreatitis without necrosis or infection, unspecified (11/13/24) Other chronic pancreatitis (11/13/24) Hyperglycemia, unspecified (11/13/24) Objective Data Objective Data Vital Signs: Vital Signs Temp Pulse Resp BP Pulse Ox O2 Del Method 97.3 F L 76 16 127/59 H 96 Room Air 11/15/24 09:25 11/15/24 09:25 11/15/24 09:25 11/15/24 09:25 11/15/24 09:25 11/15/24 10:00 Oxygen Delivery Method Room Air Weight: 141 lb 15.643 oz Body Mass Index (BMI) 19.2 Intake & Output: Intake and Output for Last 24 Hours 11/13/24 11/14/24 11/15/24 23:59 23:59 23:59 Intake Total 2350 / 2350 605 / 955 1475 / 1475 Balance 2350 / 2350 605 / 955 1475 / 1475 Lab / Micro Data 11/15/24 05:41 11/15/24 05:41 Labs: Laboratory Results - last 24 hr 11/14/24 16:03: POC Glucose 342 H 11/14/24 21:33: POC Glucose 276 H 11/15/24 05:41: WBC 8.9, RBC 3.46 L, Hgb 11.3 L, Hct 32.2 L, MCV 93.1, MCH 32.7 H, MCHC 35.1, RDW Std Deviation 50.8 H, RDW Coeff of Billy 15.1 H, Plt Count 184, MPV 12.7 H, Immature Gran % (Auto) 3.900 H, Neut % (Auto) 62.4, Lymph % (Auto) 21.4, [place] % (Auto) 9.0, Eos % (Auto) 2.6, Baso % (Auto) 0.7, Absolute Neuts (auto) 5.6, Absolute Lymphs (auto) 1.91, Nucleated RBC % 0, Sodium 130 L, Potassium 3.0 L, Chloride 97 L, Carbon Dioxide 26.0, Anion Gap 7, BUN 11, Creatinine 0.50 L, Estim Creat Clear Calc 82.74, Est GFR (MDRD) Af Amer 211, Est GFR (MDRD) Non-Af 175, BUN/Creatinine Ratio 21.8 H, Glucose 133 H, Calcium 8.1 L, Total Bilirubin 5.90 H, Direct Bilirubin 4.96 H, AST 53 H, ALT 80 H, Alkaline Phosphatase 406 H, Total Protein 5.8 L, Albumin 1.8 L, Globulin 4.0 11/15/24 08:02: POC Glucose 155 H 11/15/24 11:09: POC Glucose 154 H Micro: Microbiology 11/13/24 11:40 Blood Culture (Wb) - Anticubital Left Blood Culture - Preliminary No growth in 48 hours. 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 Patient still has abdominal pain but able to tolerate clear liquid. Back pain is better. No vomiting. No fever. Physical exam General: Alert, Oriented x3, Cooperative HEENT: Atraumatic, PERRLA, EOMI, Normocephalic Oral: No Gingival or Mucosal Lesions/ Ulcerations Neck: Supple, No JVD, Negative Carotid Bruits Chest wall/Lungs: Air entry diminished in bilateral lung bases. No crepitation/rhonchi Cardiovascular: Regular rate, Regular Rhythm, Normal S1, Normal S2, No M/G/R Abdomen: Bowel Sounds Present, Soft, mild tenderness in the upper abdomen, Non-Distended : No dysuria. No renal angle tenderness. No suprapubic tenderness. Extremities: No edema, Capillary Refill Less than 3 Seconds Skin: No rashes, No breakdown Musculoskeletal: No Tenderness to Palpation of Joints or Extremities Neurological: Cranial nerves II-XII grossly intact, DTR 2+/4. No acute focal neurological deficit. Psych/Mental Status: Normal Affect, Appropriate. Assessment & Plan Assessment/Plan (1) Acute on chronic pancreatitis: (2) Hyperbilirubinemia: (3) Hyperglycemia: (4) Acute hyponatremia: PLAN: Plan Patient is a 64-year-old male who presented to [facility] ED on 11/13/2024 with worsening abdominal pain with back pain. About 4 years ago patient required a stent in bile duct and was moved out of 3 months. Lost 20 to 30 pounds in last 1 year. Started vomiting, continued for 5 days but stopped 2 days before admission.No diarrhea 1. 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 Admit under inpatient status to [facility]. Patient accepted for transfer to [facility], awaiting bed placement. Labs notable for T. bili 10.9, AST 76, ALT 105, alk phos 511. CT abdomen pelvis showed extensive pancreatic calcifications consistent with chronic pancreatitis, dilated intrahepatic biliary ducts and common bile ducts, few cystic lesions of pancreas about 2.5 cm, 2.8 cm concerning for pancreatic pseudocyst and mild free fluid in the pelvis. Collateral veins in the splenic hilum, leila hepatis and around GB and borderline splenomegaly concerning for portal hypertension. Although reported normal liver with no evidence of gallstones. Patient was distended. Pain control. 11/14: Improving total bilirubin, transaminases and alkaline phosphatase. Severe hypoalbuminemia. Patient still has pain but prefers some liquid food. Clear liquids allowed with monitoring of abdominal pain. Bowel movement is normal. Nausea and vomiting resolved. 11/15: Active in general he still does not have bed might take couple days. In meantime GI consulted but we do not have endoscopy ultrasound for better description or drainage of pseudocyst. Diet advanced to full liquid. Mild hypokalemia potassium is getting replaced. BUN not elevated. No tachycardia. Gram-negative jovita bacteremia present, source unclear possible GI/bowel source: Patient on IV Zosyn. 2. Severe hyperglycemia with new onset diabetes ? Blood glucose 932 on admit. A1c 9.8%. Patient denies history of diabetes. 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 Given Humalog 15 units in the ED with improvement in blood sugars to 300s. Will treat with sliding scale insulin while inpatient here. 11/14: Glucose 261. Humalog and Lantus insulin ordered 3. Mild creatinine elevation with dehydration ? Creatinine 1.05 on admit, baseline around 0.7-0.8. Presumed secondary to dehydration in setting of severe hyperglycemia and poor p.o. intake as noted above. Given 2 L of IV fluids in the ED. Follow-up a.m. BMP and monitor urine output. 4. Hyponatremia ? Sodium 116 in the ED, corrected sodium 129. Chloride low at 83. Presume secondary to dehydration as noted above. Given 2 L IV fluids in the ED, follow-up a.m. sodium level. 11/14: Sodium is improving. Increased from 116- 228, 12 mEq. IV D5 ordered to lower the serum sodium. 5. Tobacco use disorder ? Smokes about 1 pack/day of cigarettes. Nicotine patch ordered per patient request. Discussed cessation. 6. Anxiety/depression ? Continue home BuSpar, citalopram and Seroquel at night. DVT prophylaxis: Lovenox CODE STATUS: Full code, verified Charges/Coding Visit Charges Inpatient E&M: 87332 Subs Hosp L2
[2024-11-15 16:57] LABS: Bedside Glucose 143 mg/dL (74-106)
--- NOTE | 2024-11-15 19:56 | EX.PCM.CON.G ---
HPI Consult Data Date of Consult: 11/15/24 HPI Narrative Reason for Consultation: pancreatitis HPI Narrative: YARELY JORDAN, is a 64 M who presented to [facility] ED on 11/13/2024 with worsening abdominal pain and mid back pain. Patient has history of chronic pancreatitis. In previous hospitalization at [facility] about 4 years ago for similar presentation and had stent placed in the bile duct for about 3 months followed by removal. Notes he was diagnosed with chronic pancreatitis at that time. Patient states that he began to have worsening abdominal pain with mid back pain along with nausea with vomiting and jaundice starting about 5 days ago. He has lost 20 to 30 pounds in the last year. Denies any history of diabetes. Given his worsening symptoms he came to the ED for further evaluation. In the ED he was hemodynamically stable on room air. Labs are notable for WBC count 14, sodium 116, chloride 83, creatinine 1.05 (baseline 0.7-0.8), glucose 932, T. bili 10.90, AST 76, ALT 105, alk phos 511, lipase 149. CT abdomen pelvis showed extensive pancreatic calcifications consistent with chronic pancreatitis, dilated intrahepatic biliary ducts and common bile ducts, few cystic lesions adjacent to the stomach pancreas concerning for pancreatic pseudocyst and mild free fluid in the pelvis. Given his significant labs and imaging findings, ED physician discussed with [facility] and patient was accepted for transfer there. However there was no bed available after 6 hours so hospitalist was contacted for admission here. Since being in the hospital his blood sugars have been very high. I was asked to see the patient today for chronic pancreatitis per hospitalist service. [facility] Medical History Marijuana use Smoker COPD (chronic obstructive pulmonary disease) Anxiety Neck fracture (~1994) Pneumonia due to COVID-19 virus Depression Home Medications ?Medication ?Instructions ?Recorded ?Last Taken ?Type buspirone 30 mg tablet 30 mg PO TID ANXIETY 11/01/20 04/02/21 History citalopram 40 mg tablet 80 mg PO DAILY depression 04/02/21 04/02/21 History quetiapine 400 mg tablet (Seroquel) 400 mg PO QHS mood 04/02/21 04/01/21 History Allergy/AdvReac Type Severity Reaction Status Date / Time No Known Allergies Allergy Verified 11/13/24 08:37 Surgical History History of tonsillectomy and adenoidectomy Social History Smoking Status: Heavy Smoker (>10/day) substance use type: does not use ROS Constitutional Constitutional: Reports fatigue; Denies chills, fever(s) or weakness Eyes Eyes: Denies change in vision Cardiovascular Cardiovascular: Denies chest pain Respiratory/Chest Respiratory/Chest: Denies cough or shortness of breath at rest Gastrointestinal Gastrointestinal: Reports abdominal pain, nausea and vomiting; Denies constipation or diarrhea Genitourinary Genitourinary: Denies dysuria Musculoskeletal Musculoskeletal: Denies arthralgias or myalgias Neurologic Neurologic: Denies dizziness, focal weakness or headache(s) Physical Exam Narrative Seen and examined. Patient still has abdominal pain but able to tolerate clear liquid. Back pain is better. No vomiting. No fever. Physical exam General: Alert, Oriented x3, Cooperative HEENT: Atraumatic, PERRLA, EOMI, Normocephalic Oral: No Gingival or Mucosal Lesions/ Ulcerations Neck: Supple, No JVD, Negative Carotid Bruits Chest wall/Lungs: Air entry diminished in bilateral lung bases. No crepitation/rhonchi Cardiovascular: Regular rate, Regular Rhythm, Normal S1, Normal S2, No M/G/R Abdomen: Bowel Sounds Present, Soft, mild tenderness in the upper abdomen, Non-Distended : No dysuria. No renal angle tenderness. No suprapubic tenderness. Extremities: No edema, Capillary Refill Less than 3 Seconds Skin: No rashes, No breakdown Musculoskeletal: No Tenderness to Palpation of Joints or Extremities Neurological: Cranial nerves II-XII grossly intact, DTR 2+/4. No acute focal neurological deficit. Psych/Mental Status: Normal Affect, Appropriate. Lab / Micro Data 11/15/24 05:41 11/15/24 05:41 Labs: Laboratory Results - last 24 hr 11/14/24 21:33: POC Glucose 276 H 11/15/24 05:41: WBC 8.9, RBC 3.46 L, Hgb 11.3 L, Hct 32.2 L, MCV 93.1, MCH 32.7 H, MCHC 35.1, RDW Std Deviation 50.8 H, RDW Coeff of Billy 15.1 H, Plt Count 184, MPV 12.7 H, Immature Gran % (Auto) 3.900 H, Neut % (Auto) 62.4, Lymph % (Auto) 21.4, [place] % (Auto) 9.0, Eos % (Auto) 2.6, Baso % (Auto) 0.7, Absolute Neuts (auto) 5.6, Absolute Lymphs (auto) 1.91, Nucleated RBC % 0, Sodium 130 L, Potassium 3.0 L, Chloride 97 L, Carbon Dioxide 26.0, Anion Gap 7, BUN 11, Creatinine 0.50 L, Estim Creat Clear Calc 82.74, Est GFR (MDRD) Af Amer 211, Est GFR (MDRD) Non-Af 175, BUN/Creatinine Ratio 21.8 H, Glucose 133 H, Calcium 8.1 L, Total Bilirubin 5.90 H, Direct Bilirubin 4.96 H, AST 53 H, ALT 80 H, Alkaline Phosphatase 406 H, Total Protein 5.8 L, Albumin 1.8 L, Globulin 4.0 11/15/24 08:02: POC Glucose 155 H 11/15/24 11:09: POC Glucose 154 H 11/15/24 16:17: POC Glucose 143 H Micro: Microbiology 11/13/24 11:40 Blood Culture (Wb) - Anticubital Left Blood Culture - Preliminary No growth in 48 hours. 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 He likely has biliary stricture secondary to chronic pancreatitis. There was no lesions seen in the head of the pancreas. ? Labs notable for T. bili 10.9, AST 76, ALT 105, alk phos 511. CT abdomen pelvis showed extensive pancreatic calcifications consistent with chronic pancreatitis, dilated intrahepatic biliary ducts and common bile ducts, few cystic lesions adjacent to the stomach pancreas concerning for pancreatic pseudocyst and mild free fluid in the pelvis. -His labs are improving. However he still has a lot of abdominal pain. -I think he has a biliary stricture and needs repeat ERCP with brushings and stenting. I will also send off labs for hereditary pancreatitis and start him on pancreatic enzymes. Severe hyperglycemia with new onset diabetes which is very common in chronic pancreatitis ? Blood glucose 932 on admit. A1c 9.8%. Patient denies history of diabetes. 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 Charges/Coding Visit Charges Inpatient E&M: 67792 Init Hosp L3
[2024-11-15 20:38] VITALS: BP 134/63; PULSE 74; RESP 18; TEMP 37; O2SAT 93
[2024-11-15 20:48] LABS: Erythrocyte Sedimentation Rate 71 mm/hr (0-20)
[2024-11-15 20:58] VITALS: PULSE 70
[2024-11-15] MEDS: QUEtiapine 100 MG Tablet 300 MG PO (21:37)
[2024-11-15 22:02] LABS: Bedside Glucose 150 mg/dL (74-106)
[2024-11-15 22:52] LABS: LDH 146 U/L (87-241)
[2024-11-16] VITALS (11 sets, daily range): BP systolic 85–151; BP diastolic 53–80; PULSE 67–83; RESP 14–18; TEMP 36.2–36.8; O2SAT 93–100
[2024-11-16] MEDS: HYDROmorphone 0.5 MG/0.5 ML SYRINGE IV ×4 (03:24→20:10)
[2024-11-16] MEDS: Piperacil/Tazobactam 3.375 GM in 0.9% Normal Saline (50mL MB+) 50 ML IV ×2 (05:03→13:42)
[2024-11-16 05:56] LABS: Absolute Lymphocyte Count 1.89 X10^3/uL (0.83-4.51); Absolute Neutrophil Count 5.6 X10^3/uL (2.0-7.7); Basophil# 0.07 X10^3/uL; Basophil% 0.8 % (0-1); Eosinophil# 0.17 X10^3/uL; Hematocrit 32.6 % (40-54); Hemoglobin 11.7 g/dL (13.0-16.5); Lymphocyte # 1.89 X10^3/ul (0.83-4.51); Lymphocyte % 21.7 % (19-41); Mean Corp Hgb Conc 35.9 g/dL (32-36); Mean Corpuscular Hgb 33.5 pg (27.0-32.0); Mean Corpuscular Volume 93.4 fL (80-94); Mean Platelet Vol. 11.9 fl (6.2-12.0); Monocyte# 0.76 X10^3/uL; Monocyte% 8.7 % (0-10); NRBC Flagged by Analyzer 0 % (0-5); Neutrophil # 5.56 X10^3/uL (2.7-7.7); Neutrophil % 63.9 % (47-70); Platelet Count 222 K/mm3 (150-450); RBC Distribution Width CV 15.4 % (11.6-14.6); RBC Distribution Width SD 51.8 fl (35.1-43.9); Red Blood Count 3.49 M/mm3 (4.6-6.2); White Blood Count 8.7 K/mm3 (4.4-11.0)
--- NOTE | 2024-11-16 06:00 | EKG12_ITS ---
Test Reason : PRE-OP Blood Pressure : */* mmHG Vent. Rate : 75 BPM Atrial Rate : 75 BPM P-R Int : 194 ms QRS Dur : 90 ms QT Int : 420 ms P-R-T Axes : 63 11 48 degrees QTcB Int : 469 ms Normal sinus rhythm Septal infarct , age undetermined Abnormal ECG When compared with ECG of 06-Jan-2024 10:23, No significant change was found Confirmed by NICOLE JONES, ZAC ([id number]), editorial manager CADEN LÓPEZ ([id number]) on 11/19/2024 8:28:09 AM Referred By: Confirmed By: ZAC RIVERA MD
[2024-11-16 06:23] LABS: AST(SGOT) 63 U/L (15-37); Alanine Aminotransfer ALT/SGPT 78 U/L (16-61); Albumin, Serum 1.9 g/dL (3.2-5.0); Alkaline Phosphatase 450 U/L (45-117); Anion Gap 4 (5-15); BUN 8 mg/dL (7-18); BUN/Creat Ratio 15.8 RATIO (10-20); Bilirubin, Direct 4.54 mg/dL (0.00-0.30); Calcium,Total 8.2 mg/dL (8.5-10.1); Chloride 99 mmol/L (98-107); Creatinine, Serum 0.51 mg/dL (0.70-1.30); EST Glomerular Filtration Rate 174 mL/min (>60); Est Glom Filt Rate - Afr Amer 211 mL/min (>60); Estimated Creatinine Clearance 82.74 ml/min; Glucose 207 mg/dL (74-106); Potassium 3.8 mmol/L (3.5-5.1); Protein, Total 5.9 g/dL (6.4-8.2); Sodium Level 130 mmol/L (136-145)
[2024-11-16 07:09] LABS: Bedside Glucose 231 mg/dL (74-106)
[2024-11-16] MEDS: Enoxaparin 40 MG/0.4 ML Syringe SC (08:35)
[2024-11-16] MEDS: 0.9% Saline Lock 10 ML Syringe IV (10:05)
--- NOTE | 2024-11-16 10:49 | CASEMGMT ---
Per rounds with hospitalist, plan is for pt to still be trf'd to [facility], awaiting a bed.
[2024-11-16 11:41] LABS: Bedside Glucose 226 mg/dL (74-106)
--- NOTE | 2024-11-16 15:13 | PCM.PRE.AN2 ---
ASA Classification* ASA Classification ASA Classification: 3 Assessment & Plan Anesthesia* Anesthesia Assessment Anesthesia Assessment: Discussed sedation and/or anesthesia options, risks, benefits, and alternatives with patient/parents/legal guardian/POA. Questions invited. The patient/parents/legal guardian/POA seems to understand and agrees to proceed with anesthesia plan. Reviewed the physical assessment, medical history, allergy history and patient home medications list prior to surgery/procedure/anesthetic and documented any changes. Performed airway and anesthesia risk assessments. Anesthesia Type Anesthesia Type: General Anesthesia Focused Assessment* Temperature: 97.3 F Pulse Rate: 77 Blood Pressure: 126/61 Respiratory Rate: 17 Pulse Ox: 99 Airway Assessment Mouth opens: >3 cm Mallampati Score: II Focused Labs Anesthesia Preop lab: CBC WBC 8.7 K/mm3 (4.4-11.0) 11/16/24 05:45 RBC 3.49 M/mm3 (4.6-6.2) L 11/16/24 05:45 Hgb 11.7 g/dL (13.0-16.5) L 11/16/24 05:45 Hct 32.6 % (40-54) L 11/16/24 05:45 Plt Count 222 K/mm3 (150-450) 11/16/24 05:45 CHEMISTRY Potassium 3.8 mmol/L (3.5-5.1) 11/16/24 05:45 Sodium 130 mmol/L (136-145) L 11/16/24 05:45 Magnesium 2.3 mg/dL (1.6-2.6) 04/02/21 15:50 Phosphorus 2.4 mg/dL (2.5-4.9) L 11/01/20 09:39 BUN 8 mg/dL (7-18) 11/16/24 05:45 Creatinine 0.51 mg/dL (0.70-1.30) L 11/16/24 05:45 Glucose 207 mg/dL (74-106) H 11/16/24 05:45 POC Glucose 226 mg/dL (74-106) H 11/16/24 11:21 TSH 1.73 uIU/mL (0.358-3.74) 05/25/15 12:30 COAG PT 14.3 SECONDS (11.7-14.9) 04/17/21 23:37 Pre-Assessment Diagnosis/Proposed Procedure Planned Operative Procedure(s): ERCP Anesthesia History Anesthesia History - belt measurer: Anesthesia History - belt measurer Hx Hospitalization Any Problems With Anesthesia No 11/16/24 06:13 Cholinesterase deficiency No 11/16/24 06:13 You/Your Family Experience No 11/16/24 06:13 fever (hyperthermia) with Relationship Recent Exposure to Contagious No 11/16/24 06:13 Disease Does patient have nerve No 11/16/24 06:13 stimulator Patient instructed to have No 11/16/24 06:13 device shut off --Does patient have Pacemaker or ICD? When Was Last Pacemaker Check QUESTION #4 FULL TEXT: You/Your Family Experience fever (hyperthermia) with Anesthesia Last Oral Intake Last Oral intake: Last Oral Intake NPO since Meds taken in AM with sips of water? Meds patient instructed to take am of surgery PONV PONV - belt measurer: PONV - belt measurer Female HX of Motion Sickness HX of N/V After Surgery Non-Smoker Duration of Surgery greater than 60 minutes Number of Risk Factors PONV Score Height & Weight Height & Weight: Anesthesia: Height & Weight Height 6 ft 11/14/24 12:41 Weight: 64.4 kg 11/14/24 12:41 Body Mass Index (BMI) 19.2 11/13/24 16:28 Respiratory Assessment Respiratory Assessment - belt measurer: Respiratory Tract Infection Hx - belt measurer Hx Respiratory Tract Infection No 11/16/24 06:13 STOP Sleep Apnea STOP Sleep Apnea - belt measurer: STOP Sleep Apnea - belt measurer Hx Hypertension No 11/13/24 16:28 Hx Sleep Apnea No 11/13/24 16:28 CPAP BIPAP Do you snore loudly (louder No 11/13/24 16:28 than talking or can be heard Do you often feel tired/ No 11/13/24 16:28 fatigued/ sleepy during daytime? Has anyone observed you stop No 11/13/24 16:28 breathing during sleep? STOP Results Negative 11/13/24 16:28 QUESTION #5 FULL TEXT : Do you snore loudly (louder than talking or can be heard through closed doors)? 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 Specify any problems Hx of Preganancy in last 3 N/A 11/13/24 16:28 Months Nurse Filling Out Transfusion [id number] 11/13/24 16:28 & Questions: Date: 11/13/24 11/13/24 16:28 Time: 16:30 11/13/24 16:28 Patient unable to answer at this time (ie. confused, unrespo /Reproduction History /Reproductive History - belt measurer: /Reproductive Hx- belt measurer Hx Now Gestational Age (in weeks): EDC: Hx Hx Para Hx Section SAB Active Medications Active Medications: Current Medications Generic Name Dose Route Start Last Admin Trade Name Freq PRN Reason Stop Dose Admin Buspirone HCl 30 mg 11/13/24 22:00 11/16/24 14:49 Buspirone 15 Mg Tablet PO Not Given TID JOSE A Citalopram Hydrobromide 40 mg 11/14/24 10:00 11/16/24 07:24 Citalopram 40 Mg Tablet PO Not Given DAILY JOSE A Enoxaparin Sodium 40 mg 11/14/24 10:00 11/16/24 08:35 Enoxaparin 40 Mg/0.4 Ml Syringe SC 40 mg DAILY JOSE A Administration Glucagon 1 mg 11/13/24 15:30 Glucagon 1 Mg/Ml Syringe IM X1 PRN Hypoglycemia Protocol Hydromorphone HCl 0.5 mg 11/13/24 15:30 11/16/24 14:31 Hydromorphone 0.5 Mg/0.5 Ml Syringe IV 0.5 mg Q4H PRN PRN Administration Pain Score 6-10 Dextrose 250 mls @ 0 mls/hr 11/13/24 15:30 Dextrose 10%-Water IV .Q0M PRN HYPOGLYCEMIA Protocol As Directed Sodium Chloride 100 mls @ 15 mls/hr 11/13/24 15:32 IV .Q6H40M PRN Saline Flush Sodium Chloride 100 mls @ 15 mls/hr 11/13/24 15:32 IV .Q6H40M PRN Additional IVPB Infusion Piperacillin Sod/Tazobactam 50 mls @ 12.5 mls/hr 11/14/24 06:00 11/16/24 13:42 Sod 3.375 gm/ Sodium Chloride IV 12.5 mls/hr TID JOSE A Administration Insulin Glargine 15 unit 11/14/24 17:05 11/16/24 09:17 Insulin Glargine-Yfgn 100 Unit/Ml Pen SC Not Given DAILY JOSE A Insulin Human Lispro 0 unit 11/13/24 16:00 11/16/24 11:49 Insulin Lispro 100 Unit/Ml Insuln.Pen SC Not Given ACHS [facility] Protocol Insulin Human Lispro 7 unit 11/15/24 07:00 11/16/24 11:49 Insulin Lispro 100 Unit/Ml Insuln.Pen SC Not Given TIDAC [facility] Magnesium Chloride 128 mg 11/15/24 12:30 11/16/24 07:24 Magnesium Chloride 64 Mg Delay Rel.Tablet PO 11/18/24 12:31 Not Given BID JOSE A Nicotine 14 mg 11/13/24 17:45 11/16/24 08:35 Nicotine 14 Mg Patch TD 14 mg DAILY [facility] Administration Nutritional Formula (Lactose Free) 120 ml 11/14/24 17:00 11/16/24 10:48 Ensure Clear 120 Ml Liquid PO Not Given TIDCM [facility] Ondansetron HCl 4 mg 11/13/24 15:30 Ondansetron 4 Mg/2 Ml Vial IV Q8H PRN PRN NAUSEA/VOMITING Oxycodone HCl 5 mg 11/13/24 15:30 Oxycodone 5 Mg Tablet PO Q4H PRN PRN Pain Score 4-10 Pancrelipase 1 cap 11/16/24 08:00 11/16/24 10:[address] Capsule PO Not Given TIDCM [facility] Potassium Chloride 40 meq 11/15/24 12:30 11/16/24 07:24 Potassium Chloride Oral Tablet 20 Meq PO 11/18/24 12:31 Not Given BIDCM JOSE A Potassium Chloride 40 meq 11/15/24 15:55 11/16/24 07:24 Potassium Chloride Oral Tablet 20 Meq PO 11/16/24 17:01 Not Given BIDCM JOSE A Quetiapine Fumarate 300 mg 11/13/24 22:00 11/15/24 21:37 Quetiapine 100 Mg Tablet PO 300 mg QHS JOSE A Administration Sodium Chloride 10 - 40 ml 11/13/24 15:32 11/16/24 10:05 0.9% Saline Lock 10 Ml Syringe IV 10 ml UD PRN Administration SALINE FLUSH [facility] Medical History Marijuana use Smoker COPD (chronic obstructive pulmonary disease) Anxiety Neck fracture (~1994) Pneumonia due to COVID-19 virus Depression Home Medications ?Medication ?Instructions ?Recorded ?Last Taken ?Type buspirone 30 mg tablet 30 mg PO TID ANXIETY 11/01/20 04/02/21 History citalopram 40 mg tablet 80 mg PO DAILY depression 04/02/21 04/02/21 History quetiapine 400 mg tablet (Seroquel) 400 mg PO QHS mood 04/02/21 04/01/21 History Allergy/AdvReac Type Severity Reaction Status Date / Time No Known Allergies Allergy Verified 11/13/24 08:37 Surgical History History of tonsillectomy and adenoidectomy Social History Smoking Status: Heavy Smoker (>10/day) substance use type: does not use Review of Systems (Anesthesia) ROS Narrative System reviewed and no additional complaints, except as documented.
--- NOTE | 2024-11-16 15:13 | NURSING ---
pt off floor for procedure
--- NOTE | 2024-11-16 16:19 | PN.HOSP_ITS ---
Reason for Visit Reason for Visit: Diagnoses Other disorders of bilirubin metabolism (11/13/24) Hypo-osmolality and hyponatremia (11/13/24) Acute pancreatitis without necrosis or infection, unspecified (11/13/24) Other chronic pancreatitis (11/13/24) Hyperglycemia, unspecified (11/13/24) Objective Data Objective Data Vital Signs: Vital Signs Temp Pulse Resp BP Pulse Ox O2 Del Method 97.3 F L 77 17 126/61 H 99 Room Air 11/16/24 15:14 11/16/24 15:14 11/16/24 15:14 11/16/24 15:14 11/16/24 15:14 11/16/24 14:30 Oxygen Delivery Method Room Air Weight: 141 lb 15.643 oz Body Mass Index (BMI) 19.2 Intake & Output: Intake and Output for Last 24 Hours 11/14/24 11/15/24 11/16/24 23:59 23:59 23:59 Intake Total 605 / 955 2024 420 / 420 Balance 605 / 955 2024 420 / 420 Lab / Micro Data 11/16/24 05:45 11/16/24 05:45 Labs: Laboratory Results - last 24 hr 11/15/24 05:41: Lactate Dehydrogenase 146, C-React Prot Ext Range 84.50 H 11/15/24 16:17: POC Glucose 143 H 11/15/24 20:10: ESR 71 H 11/15/24 21:42: POC Glucose 150 H 11/16/24 05:45: WBC 8.7, RBC 3.49 L, Hgb 11.7 L, Hct 32.6 L, MCV 93.4, MCH 33.5 H, MCHC 35.9, RDW Std Deviation 51.8 H, RDW Coeff of Billy 15.4 H, Plt Count 222, MPV 11.9, Immature Gran % (Auto) 2.900 H, Neut % (Auto) 63.9, Lymph % (Auto) 21.7, [place] % (Auto) 8.7, Eos % (Auto) 2.0, Baso % (Auto) 0.8, Absolute Neuts (auto) 5.6, Absolute Lymphs (auto) 1.89, Nucleated RBC % 0, Sodium 130 L, Potassium 3.8, Chloride 99, Carbon Dioxide 27.0, Anion Gap 4 L, BUN 8, C reatinine 0.51 L, Estim Creat Clear Calc 82.74, Est GFR (MDRD) Af Amer 211, Est GFR (MDRD) Non-Af 174, BUN/Creatinine Ratio 15.8, Glucose 207 H, Calcium 8.2 L, Total Bilirubin 5.20 H, Direct Bilirubin 4.54 H, AST 63 H, ALT 78 H, Alkaline Phosphatase 450 H, Total Protein 5.9 L, Albumin 1.9 L, Globulin 4.0, SUSAN-1 Antibody TNP, SS-A/Ro IgG Antibody TNP, SS-B/La IgG Antibody TNP, Sm (Dupree) Antibody TNP, GEAR KEEPER Antibody TNP, Scl-70 Scleroderma Ab TNP, Double Strand DNA Ab TNP, Antichromatin Antibodies TNP, Centromere B Antibody TNP 11/16/24 06:52: POC Glucose 231 H 11/16/24 11:21: POC Glucose 226 H Micro: Microbiology 11/13/24 11:40 Blood Culture (Wb) - Venous Blood Culture - Final Escherichia coli 11/13/24 11:40 Blood Culture (Wb) - Anticubital Left Blood Culture - Preliminary No growth in 48 hours. Physical Exam Narrative Seen and examined. Patient still has abdominal pain but able to tolerate full liquid. Back pain is better. No vomiting. No fever. Plan for ERCP today Physical exam General: Alert, Oriented x3, Cooperative HEENT: Atraumatic, PERRLA, EOMI, Normocephalic Oral: No Gingival or Mucosal Lesions/ Ulcerations Neck: Supple, No JVD, Negative Carotid Bruits Chest wall/Lungs: Air entry diminished in bilateral lung bases. No crepitation/rhonchi Cardiovascular: Regular rate, Regular Rhythm, Normal S1, Normal S2, No M/G/R Abdomen: Bowel Sounds Present, Soft, mild tenderness in the upper abdomen, Non- Distended : No dysuria. No renal angle tenderness. No suprapubic tenderness. Extremities: No edema, Capillary Refill Less than 3 Seconds Skin: No rashes, No breakdown Musculoskeletal: No Tenderness to Palpation of Joints or Extremities Neurological: Cranial nerves II-XII grossly intact, DTR 2+/4. No acute focal neurological deficit. Psych/Mental Status: Normal Affect, Appropriate. Const alert, oriented x3 and no apparent distress Constitutional Narrative: Elderly male, thin and somewhat cachectic appearing, whole-body jaundice noted, otherwise sitting up fairly comfortably in bed, conversing normally, in no acute distress. General Appearance: cooperative and comfortable HEENT normocephalic, head/scalp atraumatic, hearing grossly normal bilaterally, nasal mucous membranes and turbinates normal and moist oral mucous membranes Eyes PERRL, EOMs intact bilaterally and conjunctivae normal Neck full ROM Chest inspection of chest normal Resp normal respiratory effort, normal air movement, no use of accessory muscles and clear to auscultation bilaterally Cardio regular rate, regular rhythm, no murmurs and peripheral pulses 2+ throughout GI GI Narrative: Mild tenderness to palpation in epigastric region. Otherwise abdomen soft and nondistended. Back/Spine normal ROM Extremity normal to inspection, full ROM and no pedal edema Skin Skin Narrative: Whole-body jaundice noted. Psych mental status grossly normal Assessment & Plan Assessment/Plan (1) Acute on chronic pancreatitis: (2) Hyperbilirubinemia: (3) Hyperglycemia: (4) Acute hyponatremia: PLAN: Plan Patient is a 64-year-old male who presented to [facility] ED on 11/13/2024 with worsening abdominal pain with back pain. About 4 years ago patient required a stent in bile duct and was moved out of 3 months. Lost 20 to 30 pounds in last 1 year. Started vomiting, continued for 5 days but stopped 2 days before admission.No diarrhea 1. 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 Admit under inpatient status to [facility]. Patient accepted for transfer to [facility], awaiting bed placement. Labs notable for T. bili 10.9, AST 76, ALT 105, alk phos 511. CT abdomen pelvis showed extensive pancreatic calcifications consistent with chronic pancreatitis, dilated intrahepatic biliary ducts and common bile ducts, few cystic lesions of pancreas about 2.5 cm, 2.8 cm concerning for pancreatic pseudocyst and mild free fluid in the pelvis. Collateral veins in the splenic hilum, leila hepatis and around GB and borderline splenomegaly concerning for portal hypertension. Although reported normal liver with no evidence of gallstones. Patient was distended. Pain control. 11/14: Improving total bilirubin, transaminases and alkaline phosphatase. Severe hypoalbuminemia. Patient still has pain but prefers some liquid food. Clear liquids allowed with monitoring of abdominal pain. Bowel movement is normal. Nausea and vomiting resolved. 11/16: Blood culture positive of E. coli sensitive to ceftriaxone. IV Zosyn changed to ceftriaxone. Improvement in total bilirubin, AST ALT but alkaline phosphatase still elevated. Plan for ERCP today. ID consulted. Overall plan to transfer to [facility], the bed is not available. 2. Severe hyperglycemia with new onset diabetes ? Blood glucose 932 on admit. A1c 9.8%. Patient denies history of diabetes. 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 Given Humalog 15 units in the ED with improvement in blood sugars to 300s. Will treat with sliding scale insulin while inpatient here. 11/14: Glucose 261. Humalog and Lantus insulin ordered 11/16: Glucose 207. No fever. 3. Mild creatinine elevation with dehydration ? Creatinine 1.05 on admit, baseline around 0.7-0.8. Presumed secondary to dehydration in setting of severe hyperglycemia and poor p.o. intake as noted above. Given 2 L of IV fluids in the ED. Follow-up a.m. BMP and monitor urine output. 4. Hyponatremia ? Sodium 116 in the ED, corrected sodium 129. Chloride low at 83. Presume secondary to dehydration as noted above. Given 2 L IV fluids in the ED, follow- up a.m. sodium level. 11/14: Sodium is improving. Increased from 116- 228, 12 mEq. IV D5 ordered to lower the serum sodium. 5. Tobacco use disorder ? Smokes about 1 pack/day of cigarettes. Nicotine patch ordered per patient request. Discussed cessation. 6. Anxiety/depression ? Continue home BuSpar, citalopram and Seroquel at night. DVT prophylaxis: Lovenox CODE STATUS: Full code, verified Charges/Coding Visit Charges Inpatient E&M: 81387 Subs Hosp L2
--- NOTE | 2024-11-16 17:19 | PN.GI_ITS ---
Subjective Subjective Patient is still in a lot of abdominal pain. His blood sugars have been better controlled today. He has been n.p.o. for ERCP. Objective Data Objective Data Vital Signs: Vital Signs Temp Pulse Resp BP Pulse Ox O2 Del Method 97.3 F L 77 17 126/61 H 99 Room Air 11/16/24 15:14 11/16/24 15:14 11/16/24 15:14 11/16/24 15:14 11/16/24 15:14 11/16/24 14:30 Oxygen Delivery Method Room Air Weight: 141 lb 15.643 oz Body Mass Index (BMI) 19.2 Intake & Output: Intake and Output for Last 24 Hours 11/14/24 11/15/24 11/16/24 23:59 23:59 23:59 Intake Total 605 / 955 2024 462.92 / 462.92 Balance 605 / 955 2024 462.92 / 462.92 Lab / Micro Data 11/16/24 05:45 11/16/24 05:45 Labs: Laboratory Results - last 24 hr 11/15/24 05:41: Lactate Dehydrogenase 146, C-React Prot Ext Range 84.50 H 11/15/24 20:10: ESR 71 H 11/15/24 21:42: POC Glucose 150 H 11/16/24 05:45: WBC 8.7, RBC 3.49 L, Hgb 11.7 L, Hct 32.6 L, MCV 93.4, MCH 33.5 H, MCHC 35.9, RDW Std Deviation 51.8 H, RDW Coeff of Billy 15.4 H, Plt Count 222, MPV 11.9, Immature Gran % (Auto) 2.900 H, Neut % (Auto) 63.9, Lymph % (Auto) 21.7, [place] % (Auto) 8.7, Eos % (Auto) 2.0, Baso % (Auto) 0.8, Absolute Neuts (auto) 5.6, Absolute Lymphs (auto) 1.89, Nucleated RBC % 0, Sodium 130 L, Potassium 3.8, Chloride 99, Carbon Dioxide 27.0, Anion Gap 4 L, BUN 8, C reatinine 0.51 L, Estim Creat Clear Calc 82.74, Est GFR (MDRD) Af Amer 211, Est GFR (MDRD) Non-Af 174, BUN/Creatinine Ratio 15.8, Glucose 207 H, Calcium 8.2 L, Total Bilirubin 5.20 H, Direct Bilirubin 4.54 H, AST 63 H, ALT 78 H, Alkaline Phosphatase 450 H, Total Protein 5.9 L, Albumin 1.9 L, Globulin 4.0, SUSAN-1 Antibody TNP, SS-A/Ro IgG Antibody TNP, SS-B/La IgG Antibody TNP, Sm (Dupree) Antibody TNP, REMOTE SENSING ANALYST Antibody TNP, Scl-70 Scleroderma Ab TNP, Double Strand DNA Ab TNP, Antichromatin Antibodies TNP, Centromere B Antibody TNP 11/16/24 06:52: POC Glucose 231 H 11/16/24 11:21: POC Glucose 226 H Micro: Microbiology 11/13/24 11:40 Blood Culture (Wb) - Venous Blood Culture - Final Escherichia coli 11/13/24 11:40 Blood Culture (Wb) - Anticubital Left Blood Culture - Preliminary No growth in 48 hours. Physical Exam Narrative Seen and examined. Patient still has abdominal pain but able to tolerate full liquid. Back pain is better. No vomiting. No fever. Plan for ERCP today Physical exam General: Alert, Oriented x3, Cooperative HEENT: Atraumatic, PERRLA, EOMI, Normocephalic Oral: No Gingival or Mucosal Lesions/ Ulcerations Neck: Supple, No JVD, Negative Carotid Bruits Chest wall/Lungs: Air entry diminished in bilateral lung bases. No crepitation/rhonchi Cardiovascular: Regular rate, Regular Rhythm, Normal S1, Normal S2, No M/G/R Abdomen: Bowel Sounds Present, Soft, mild tenderness in the upper abdomen, Non- Distended : No dysuria. No renal angle tenderness. No suprapubic tenderness. Extremities: No edema, Capillary Refill Less than 3 Seconds Skin: No rashes, No breakdown Musculoskeletal: No Tenderness to Palpation of Joints or Extremities Neurological: Cranial nerves II-XII grossly intact, DTR 2+/4. No acute focal neurological deficit. Psych/Mental Status: Normal Affect, Appropriate. Const alert, oriented x3 and no apparent distress Constitutional Narrative: Elderly male, thin and somewhat cachectic appearing, whole-body jaundice noted, otherwise sitting up fairly comfortably in bed, conversing normally, in no acute distress. General Appearance: cooperative and comfortable HEENT normocephalic, head/scalp atraumatic, hearing grossly normal bilaterally, nasal mucous membranes and turbinates normal and moist oral mucous membranes Eyes PERRL, EOMs intact bilaterally and conjunctivae normal Neck full ROM Chest inspection of chest normal Resp normal respiratory effort, normal air movement, no use of accessory muscles and clear to auscultation bilaterally Cardio regular rate, regular rhythm, no murmurs and peripheral pulses 2+ throughout GI GI Narrative: Mild tenderness to palpation in epigastric region. Otherwise abdomen soft and nondistended. Back/Spine normal ROM Extremity normal to inspection, full ROM and no pedal edema Skin Skin Narrative: Whole-body jaundice noted. Psych mental status grossly normal Assessment & Plan Assessment/Plan (1) Acute on chronic pancreatitis: (2) Hyperbilirubinemia: (3) Hyperglycemia: (4) Acute hyponatremia: PLAN: Plan Patient is a 64-year-old male who presented to [facility] ED on 11/13/2024 with worsening abdominal pain with back pain. About 4 years ago patient required a stent in bile duct and was moved out of 3 months. Lost 20 to 30 pounds in last 1 year. Started vomiting, continued for 5 days. He was discovered to have acute on chronic pancreatitis along with severe hyperbilirubinemia. 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 A patient will undergo ERCP. He was explained alternatives, risk, benefits include understanding bleeding, infection, sepsis, perforation, need for surgery . He will have an ASA of 3. Labs notable for T. bili 10.9, AST 76, ALT 105, alk phos 511. CT abdomen pelvis showed extensive pancreatic calcifications consistent with chronic pancreatitis, dilated intrahepatic biliary ducts and common bile ducts, few cystic lesions of pancreas about 2.5 cm, 2.8 cm concerning for pancreatic pseudocyst and mild free fluid in the pelvis. Collateral veins in the splenic hilum, leila hepatis and around GB and borderline splenomegaly concerning for portal hypertension. Charges/Coding Visit Charges Inpatient E&M: 10077 Subs Hosp L3
--- NOTE | 2024-11-16 17:20 | NURSING ---
PT WENT TO THE BATHROOM WITHOUT RINGING THE CALL [facility], HE UNHOOKED HIS IV WITHOUT PERMISSION AND SCREWED OFF STOPPER PART OF THE IV LOOP AND LEFT IT BEHIND ON THE TUBING, PT DRIPPED BLOOD ALL THE WAY TO THE BATHROOM. A NEW CLEAN END CAP WAS PLACED ON THE LOOP. AND PT WAS EDUCATED TO NOT DISCONNECT HIS OWN IV AND TO RING THE CALL [facility] IF HE NEEDS TO USE THE REST ROOM OR NEEDS ANYTHING IN GENERAL. RLDATIX WILL BE PLACED.
--- NOTE | 2024-11-16 17:55 | RAD_ITS ---
ERCP INDICATION: Abdominal pain. TECHNIQUE: 78 seconds of fluoroscopy of the EMG was not performed during ERCP in 8 images are significant for interpretation. FINDINGS: Persistent narrowing of the distal common bile duct worrisome for stricture or extrinsic compression. A biliary stent was placed. RAD/ERCP Biliary/Pancreas IMPRESSION: Fluoroscopy during ERCP and biliary stent placement. Electronically Signed: Lorenzo Velazquez MD at 21:25 [facility] ,
--- NOTE | 2024-11-16 18:25 | OP.ERCP_ITS ---
Patient Name: Abdulaziz Goncalves Procedure Date: 11/16/2024 5:21 PM Date of : 1960 Age: 64 Procedure: ERCP Indications: Jaundice, Elevated liver enzymes, Acute pancreatitis, Chronic recurrent pancreatitis Providers: Darryl Lowery DO Medicines: General Anesthesia Patient Profile: This is a 64 year old male. Refer to note in patient chart for documentation of history and physical. Patient has symptoms of acute right upper quadrant abdominal pain and acute jaundice. Complications: No immediate complications. Procedure: Pre-Anesthesia Assessment: - Prior to the procedure, a History and Physical was performed, and patient medications and allergies were reviewed. The patient is competent. The risks and benefits of the procedure and the sedation options and risks were discussed with the patient. All questions were answered and informed consent was obtained. Patient identification and proposed procedure were verified by the physician in the pre-procedure area. Mental Status Examination: alert and oriented. Airway Examination: normal oropharyngeal airway and neck mobility. Respiratory Examination: clear to auscultation. CV Examination: normal. Prophylactic Antibiotics: The patient does not require prophylactic antibiotics. Prior Anticoagulants: The patient has taken no anticoagulant or antiplatelet agents. ASA Grade Assessment: II - A patient with mild systemic disease. After reviewing the risks and benefits, the patient was deemed in satisfactory condition to undergo the procedure. The anesthesia plan was to use monitored anesthesia care (MAC). Immediately prior to administration of medications, the patient was re-assessed for adequacy to receive sedatives. The heart rate, respiratory rate, oxygen saturations, blood pressure, adequacy of pulmonary ventilation, and response to care were monitored throughout the procedure. The physical status of the patient was re-assessed after the procedure. After obtaining informed consent, the scope was passed under direct vision. Throughout the procedure, the patient's blood pressure, pulse, and oxygen saturations were monitored continuously. The Duodenoscope was introduced through the mouth, and advanced to the duodenum and used to inject contrast into the bile duct and ventral pancreatic duct. The ERCP was accomplished without difficulty. The patient tolerated the procedure well. Scope In: 5:57:12 PM Scope Out: 6:09:45 PM Total Procedure Duration Time 0 hours 12 minutes 33 seconds Findings: The machine inspector film was normal. The esophagus was successfully intubated under direct vision. The scope was advanced to a normal major papilla in the descending duodenum without detailed examination of the pharynx, larynx and associated structures, and upper GI tract. The upper GI tract was grossly normal. The ventral pancreatic duct was deeply cannulated with the short-nosed traction sphincterotome. Contrast was injected. I personally interpreted the pancreatic duct images. There was brisk flow of contrast through the ducts. Image quality was adequate. Contrast extended to the pancreatic duct. Opacification of the ventral pancreatic duct in the head of the pancreas was successful. The maximum diameter of the ducts was 3 mm. The ventral pancreatic duct in the head of the pancreas contained multiple stones. The ventral pancreatic duct in the head of the pancreas was partially obstructed by what appeared to be a stone. The pancreatic duct in the body of the pancreas, pancreatic duct in the tail of the pancreas and main pancreatic duct were dilated upstream of a stenosis. A long 0.025 inch Jagwire was passed into the ventral pancreatic duct. A 5 mm ventral pancreatic sphincterotomy was made with a traction (standard) sphincterotome using ERBE electrocautery. There was no post-sphincterotomy bleeding. To discover objects, the biliary tree was swept with a 10 mm balloon starting at the main pancreatic duct. Two stones were removed. No stones remained. A long 0.025 inch Jagwire was passed into the biliary tree. The short-nosed traction sphincterotome was passed over the guidewire and the bile duct was then deeply cannulated. Contrast was injected. Opacification of the entire biliary tree except for the cystic duct and gallbladder, entire biliary tree except for the gallbladder, entire opacified area, lower third of the main bile duct, hepatic duct bifurcation, left main hepatic duct, right main hepatic duct, left and right hepatic ducts and all intrahepatic branches, entire biliary tree and right upper quadrant of the abdomen was successful. The maximum diameter of the ducts was 10 mm. The lower third of the main bile duct, hepatic duct bifurcation and right main hepatic duct contained four stones, the largest of which was 6 mm in diameter. The main bile duct, hepatic duct bifurcation and entire biliary tree were moderately dilated and segmentally dilated, with a stone causing an obstruction. The largest diameter was 13 mm. A cholecystectomy had been performed. A 5 mm biliary sphincterotomy was made with a traction (standard) sphincterotome using ERBE electrocautery. There was no post-sphincterotomy bleeding. The biliary tree was swept with a 12 mm balloon starting at the biliary pancreatic junction, upper third of the main bile duct, middle third of the main bile duct, lower third of the main duct, bifurcation, left intrahepatic duct(s), left main hepatic duct, right intrahepatic duct(s) and right main hepatic duct. Sludge was swept from the duct. All stones were removed. One 10 Fr by 7 cm temporary stent with two external flaps and a single internal flap was placed 5 cm into the common bile duct. Bile flowed through the stent. The stent was in good position. The upper GI tract was traversed under direct vision without detailed examination. A large, submucosal, non-circumferential mass with no bleeding and no stigmata of recent bleeding was found on the lesser curvature of the stomach. Impression: - The entire main bile duct and entire biliary tree were moderately dilated, with a stone causing an obstruction. - The patient has had a cholecystectomy. - Dilatation of the pancreatic duct in the body of the pancreas, pancreatic duct in the tail of the pancreas and main pancreatic duct was found upstream of a stenosis. - A pancreatic obstruction secondary to a stone was found in the head of the pancreas. - Choledocholithiasis was found. Complete removal was accomplished by biliary sphincterotomy and balloon extraction. - Pancreatic stones were found. Complete removal was accomplished. - A pancreatic sphincterotomy was performed. - The biliary tree was swept. - A biliary sphincterotomy was performed. - The biliary tree was swept. - One temporary stent was placed into the common bile duct. Procedure Code(s): --- Professional --- 22240, Endoscopic retrograde cholangiopancreatography (ERCP); with placement of endoscopic stent into biliary or pancreatic duct, including pre- and post-dilation and guide wire passage, when performed, including sphincterotomy, when performed, each stent [id number], 51, Endoscopic retrograde cholangiopancreatography (ERCP); with removal of calculi/debris from biliary/pancreatic duct(s) 19577, 59, Endoscopic retrograde cholangiopancreatography (ERCP); with sphincterotomy/papillotomy 28823, 26, Endoscopic catheterization of the pancreatic ductal system, radiological supervision and interpretation CPT copyright 2021 [employer] [place] [employer]. All rights reserved. The codes documented in this report are preliminary and upon library assistant review may be revised to meet current compliance requirements. Darryl Lowery DO 11/16/2024 6:25:23 PM This report has been signed electronically. Number of Addenda: 0 Note Initiated On: 11/16/2024 5:21 PM
--- NOTE | 2024-11-16 18:26 | OP.CCLET_ITS ---
11/16/2024 Sameer Ruiz MD Re : ERCP procedure for Abdulaziz Goncalves Dear Dr. Ruiz This procedure was performed on Saturday, November 16, 2024. My impressions and recommendations are as follows: Impressions : - The entire main bile duct and entire biliary tree were moderately dilated, with a stone causing an obstruction. - The patient has had a cholecystectomy. - Dilatation of the pancreatic duct in the body of the pancreas, pancreatic duct in the tail of the pancreas and main pancreatic duct was found upstream of a stenosis. - A pancreatic obstruction secondary to a stone was found in the head of the pancreas. - Choledocholithiasis was found. Complete removal was accomplished by biliary sphincterotomy and balloon extraction. - Pancreatic stones were found. Complete removal was accomplished. - A pancreatic sphincterotomy was performed. - The biliary tree was swept. - A biliary sphincterotomy was performed. - The biliary tree was swept. - One temporary stent was placed into the common bile duct. Recommendations : My findings are described in the full procedure note, which is enclosed. If I can be of further assistance, please feel free to contact me at . Sincerely, Darryl Lowery DO 11/16/2024 6:25:23 PM This report has been signed electronically.
--- NOTE | 2024-11-16 18:40 | PCM.POST.ANE ---
Anesthesia: Postop Eval I Current Vital Signs Temperature: 97.1 F Pulse Rate: 76 Blood Pressure: 85/56 Respiratory Rate: 14 Pulse Ox: 97 Oxygen Delivery Method: Room Air Assessment Airway patent: Yes Spontaneous unlabored respirations: Yes Mental status: Asleep nausea: No Vomiting: No Anesthesia Complication: No Fluid Hydration Crystalloid volume administer (ml): 900 Total IV fluid infused: 900 Progress Note Anesthesia document: Postop Eval 1 completed: Yes
--- NOTE | 2024-11-16 18:54 | SUR.PHASEI ---
1850, CALLED FOR TRANSPORT BACK TO [facility] [place]
--- NOTE | 2024-11-16 20:06 | PCM.POSTANE2 ---
Anesthesia Postop Eval I Sum Postop Eval Completion status Anesthesia document: Postop Eval 1 completed: Yes Anesthesia Postop Eval I Summary Anesthesia Postop Eval I Summary: Anesthesia Postop Eval I: Assessment Summary Airway patent Yes 11/16/24 18:41 [email or web address] Spontaneous unlabored Yes 11/16/24 18:41 [email or web address] respirations Mental status Asleep 11/16/24 18:41 [email or web address] nausea No 11/16/24 18:41 [email or web address] Vomiting No 11/16/24 18:41 [email or web address] Anesthesia Postop Eval I: Fluid Summary Crystalloid volume administer 900 11/16/24 18:41 [email or web address] (ml) Colloids volume administered ( ml) Blood Product volume administered (ml) Total IV fluid infused 900 11/16/24 18:41 [email or web address] Anesthesia Postop Eval I: Summary Notes Anesthesia Complication No 11/16/24 18:41 [email or web address] Anesthesia Complication Comment: Post-operative progress note Anesthesia: Postop Eval II Evaluation Mental status: Awake Pain Level: 0 nausea: No Vomiting: No
[2024-11-16] MEDS: Ceftriaxone 2 GM in 0.9% Normal Saline (50mL MB+) 50 ML IV (20:10)
[2024-11-16] MEDS: 0.9% Normal Saline (100mL Bag) 100 ML 15 ML IV (20:11)
[2024-11-16] MEDS: Magnesium Chloride 64 MG Delay Rel.Tablet 128 MG PO (20:12)
[2024-11-16] MEDS: QUEtiapine 100 MG Tablet 300 MG PO (20:13)
[2024-11-16] MEDS: busPIRone 15 MG TABLET 30 MG PO (20:13)
[2024-11-16] MEDS: Insulin Lispro 100 UNIT/ML INSULN.PEN SC (20:25)
[2024-11-16 20:50] LABS: Bedside Glucose 171 mg/dL (74-106)
[2024-11-17 00:09] VITALS: BP 108/58; PULSE 84; RESP 14; TEMP 36.4; O2SAT 97
[2024-11-17] MEDS: 0.9% Saline Lock 10 ML Syringe IV ×5 (00:20→21:27)
[2024-11-17] MEDS: HYDROmorphone 0.5 MG/0.5 ML SYRINGE IV ×5 (00:20→21:27)
[2024-11-17 06:40] VITALS: BP 121/59; PULSE 87; RESP 16; TEMP 36.6; O2SAT 94
[2024-11-17] MEDS: busPIRone 15 MG TABLET 30 MG PO ×3 (06:42→21:28)
[2024-11-17 07:00] LABS: Absolute Lymphocyte Count 0.44 X10^3/uL (0.83-4.51); Absolute Neutrophil Count 3.8 X10^3/uL (2.0-7.7); Basophil# 0.02 X10^3/uL; Basophil% 0.4 % (0-1); Eosinophil# 0.01 X10^3/uL; Eosinophils% 0.2 % (0-5); Hematocrit 34.2 % (40-54); Hemoglobin 10.8 g/dL (13.0-16.5); Lymphocyte # 0.44 X10^3/ul (0.83-4.51); Mean Corp Hgb Conc 31.6 g/dL (32-36); Mean Corpuscular Hgb 29.1 pg (27.0-32.0); Mean Corpuscular Volume 92.2 fL (80-94); Mean Platelet Vol. 9.7 fl (6.2-12.0); Monocyte# 0.59 X10^3/uL; NRBC Flagged by Analyzer 0 % (0-5); Neutrophil # 3.81 X10^3/uL (2.7-7.7); Neutrophil % 77.8 % (47-70); POSITIVE DIFFERENTIAL YES; Platelet Count 153 K/mm3 (150-450); RBC Distribution Width CV 13.7 % (11.6-14.6); RBC Distribution Width SD 46.5 fl (35.1-43.9); Red Blood Count 3.71 M/mm3 (4.6-6.2); White Blood Count 4.9 K/mm3 (4.4-11.0)
[2024-11-17 08:17] LABS: AST(SGOT) 14 U/L (15-37); Alanine Aminotransfer ALT/SGPT 9 U/L (16-61); Albumin, Serum 2.9 g/dL (3.2-5.0); Alkaline Phosphatase 54 U/L (45-117); Anion Gap 7 (5-15); BUN 16 mg/dL (7-18); BUN/Creat Ratio 19.2 RATIO (10-20); Calcium,Total 8.1 mg/dL (8.5-10.1); Chloride 104 mmol/L (98-107); Creatinine, Serum 0.83 mg/dL (0.70-1.30); EST Glomerular Filtration Rate 98 mL/min (>60); Est Glom Filt Rate - Afr Amer 119 mL/min (>60); Estimated Creatinine Clearance 79.75 ml/min; Globulin 3.5 g/dL (2.2-4.2); Glucose 101 mg/dL (74-106); Potassium 3.8 mmol/L (3.5-5.1); Protein, Total 6.4 g/dL (6.4-8.2); Sodium Level 137 mmol/L (136-145)
[2024-11-17] MEDS: Enoxaparin 40 MG/0.4 ML Syringe SC (08:36)
[2024-11-17] MEDS: Insulin Lispro 100 UNIT/ML INSULN.PEN SC ×4 (08:36→21:27)
[2024-11-17] MEDS: Insulin Glargine-YFGN 100 UNIT/ML Pen 15 UNIT SC (08:36)
[2024-11-17] MEDS: Insulin Lispro 100 UNIT/ML INSULN.PEN 7 UNIT SC ×3 (08:37→17:15)
[2024-11-17] MEDS: Creon 24,000 unit DR Capsule 1 CAP PO ×3 (08:37→17:15)
[2024-11-17] MEDS: Potassium Chloride Oral Tablet 20 MEQ 40 MEQ PO ×2 (08:37→17:15)
[2024-11-17] MEDS: Magnesium Chloride 64 MG Delay Rel.Tablet 128 MG PO ×2 (08:38→21:28)
[2024-11-17] MEDS: Citalopram 40 MG TABLET PO (08:38)
[2024-11-17] MEDS: Ceftriaxone 2 GM in 0.9% Normal Saline (50mL MB+) 50 ML IV (08:40)
[2024-11-17 09:09] LABS: Bedside Glucose 268 mg/dL (74-106)
--- NOTE | 2024-11-17 09:24 | PN.HOSP_ITS ---
Reason for Visit Reason for Visit: Diagnoses Other disorders of bilirubin metabolism (11/13/24) Hypo-osmolality and hyponatremia (11/13/24) Acute pancreatitis without necrosis or infection, unspecified (11/13/24) Other chronic pancreatitis (11/13/24) Hyperglycemia, unspecified (11/13/24) Subjective Subjective Patient is a 64-year-old gentleman who presented to the emergency department with abdominal pain. Has underlying history of chronic pancreatitis. Imaging studies demonstrated multiple pancreatic cysts and probably pancreatic pseudocyst. Arrangements were made for patient to be transferred to tertiary care center has been accepted and is currently waiting for a bed Objective Data Objective Data Vital Signs: Vital Signs Temp Pulse Resp BP Pulse Ox O2 Del Method 98 F 87 16 121/59 H 94 Room Air 11/17/24 06:40 11/17/24 06:40 11/17/24 06:40 11/17/24 06:40 11/17/24 06:40 11/17/24 08:45 Oxygen Delivery Method Room Air Weight: 64.4 kg Body Mass Index (BMI) 19.2 Intake & Output: Intake and Output for Last 24 Hours 11/15/24 11/16/24 11/17/24 23:59 23:59 23:59 Intake Total 2024 531.67 / 531.67 50 / 50 Balance 2024 531.67 / 531.67 50 / 50 Lab / Micro Data 11/17/24 06:45 11/17/24 06:45 Labs: Laboratory Results - last 24 hr 11/16/24 11:21: POC Glucose 226 H 11/16/24 20:24: POC Glucose 171 H 11/17/24 06:45: WBC 4.9, RBC 3.71 L, Hgb 10.8 L, Hct 34.2 L, MCV 92.2, MCH 29.1, MCHC 31.6 L D, RDW Std Deviation 46.5 H, RDW Coeff of Billy 13.7, Plt Count 153, MPV 9.7, Immature Gran % (Auto) 0.600, Neut % (Auto) 77.8 H, Lymph % (Auto) 9.0 L, [place] % (Auto) 12.0 H, Eos % (Auto) 0.2, Baso % (Auto) 0.4, Absolute Neuts (auto) 3.8, Absolute Lymphs (auto) 0.44 L, Nucleated RBC % 0, Sodium 137, Potassium 3.8, Chloride 104, Carbon Dioxide 26.0, Anion Gap 7, BUN 16, Creatinine 0.83, Estim Creat Clear Calc 79.75, Est GFR (MDRD) Af Amer 119, Est GFR (MDRD) Non-Af 98, BUN/Creatinine Ratio 19.2, Glucose 101, Calcium 8.1 L, Total Bilirubin 0.80, Direct Bilirubin 0.20, AST 14 L, ALT 9 L, Alkaline Phosphatase 54, Total Protein 6.4, Albumin 2.9 L, Globulin 3.5 11/17/24 08:32: POC Glucose 268 H Micro: Microbiology 11/13/24 11:40 Blood Culture (Wb) - Venous Blood Culture - Final Escherichia coli 11/13/24 11:40 Blood Culture (Wb) - Anticubital Left Blood Culture - Preliminary No growth in 48 hours. Radiography Diagnostic Testing: Radiology Impression Endo Retro Cholangiopancreatogram 11/16/24 17:55 IMPRESSION: Fluoroscopy during ERCP and biliary stent placement. Electronically Signed: Lorenzo Velazquez MD at 21:25 EST , Physical Exam Narrative GENERAL: cooperative HEENT: Atraumatic; normocephalic EYES; Anicteric, Normal Conjunctiva NECK; supple, normal thyroid, RESPIRATORY: Diminished to auscultation CARDIOVASCULAR: Regular S1 S2, GI: soft, normoactive bowel sounds, : No Renal angle tenderness; EXTREMITIES: No edema, no clubbing, MUSCULOSKELETAL: no muscle wasting NEURO: Awake; no lateralizing signs. SKIN: No Rash PSYCH; Flat affect Assessment & Plan Assessment/Plan (1) Acute on chronic pancreatitis: (2) Hyperbilirubinemia: (3) Hyperglycemia: (4) Acute hyponatremia: PLAN: Plan Patient is a 64-year-old gentleman who presented to the emergency department with abdominal pain. Has underlying history of chronic pancreatitis. Imaging studies demonstrated multiple pancreatic cysts and probably pancreatic pseudocyst. Arrangements were made for patient to be transferred to tertiary care center has been accepted and is currently waiting for a bed 1. Acute on chronic pancreatitis ? Imaging studies demonstrated multiple pancreatic cysts and probably pancreatic pseudocyst. Arrangements were made for patient to be transferred to tertiary care center has been accepted and is currently waiting for a bed 2. Acute transaminitis with hyperbilirubinemia ? CT abdomen pelvis showed extensive pancreatic calcifications consistent with chronic pancreatitis, dilated intrahepatic biliary ducts and common bile ducts, few cystic lesions of pancreas about 2.5 cm, 2.8 cm concerning for pancreatic pseudocyst and mild free fluid in the pelvis. Collateral veins in the splenic hilum, leila hepatis and around GB and borderline splenomegaly concerning for portal hypertension. Consult was placed to GI seen by Dr. Lowery patient underwent ERCP on 11/16/2024. Findings and procedures performed as below Impressions : - The entire main bile duct and entire biliary tree were moderately dilated, with a stone causing an obstruction. - The patient has had a cholecystectomy. - Dilatation of the pancreatic duct in the body of the pancreas, pancreatic duct in the tail of the pancreas and main pancreatic duct was found upstream of a stenosis. - A pancreatic obstruction secondary to a stone was found in the head of the pancreas. - Choledocholithiasis was found. Complete removal was accomplished by biliary sphincterotomy and balloon extraction. - Pancreatic stones were found. Complete removal was accomplished. - A pancreatic sphincterotomy was performed. - The biliary tree was swept. - A biliary sphincterotomy was performed. - The biliary tree was swept. - One temporary stent was placed into the common bile duct. 3. Severe hyponatremia ? With sodium levels of 116 on admission this was thought to be secondary to hypovolemic hyponatremia as well as pseudohyponatremia from patient profound hyperglycemia on admission. Resolved with IV hydration and correction of patient's hyperglycemia 4. New onset diabetes mellitus type 2 ? Patient presented with severe hyperglycemia hemoglobin A1c was noted to be 9.8 glucose on admission was 922. Patient managed with long-acting insulin with scheduled short acting insulin patient glucose levels have seen improved 5. Bacteremia with E. coli ? Source not clear? Urinary source patient has been managed with ceftriaxone 6. Tobacco dependence ? Counseled on cessation, offered nicotine patch for tobacco cravings 7. Depression with anxiety ? Patient is on citalopram as well as Seroquel at night continue 8. DVT prophylaxis ? On enoxaparin Time spent in the patient's overall evaluation,decision-making process, review of diagnostic data, adjustment of management, discussion with other providers, nursing nursing and ancillary staff involved in patient's care documentation, 38 Minutes Charges/Coding Visit Charges Inpatient E&M: 99506 Subs Hosp L2
[2024-11-17] MEDS: Senna/Docusate Sodium 1 Tablet PO ×2 (11:00→21:31)
[2024-11-17 11:26] LABS: Bedside Glucose 340 mg/dL (74-106)
[2024-11-17] MEDS: Magnesium Citrate 300 ML 150 ML PO (14:18)
[2024-11-17] MEDS: oxyCODONE 5 MG Tablet PO ×2 (14:24→19:41)
[2024-11-17 14:34] VITALS: BP 135/68; PULSE 88; RESP 18; TEMP 36.6; O2SAT 98
[2024-11-17] MEDS: Ensure Clear 120 ML Liquid PO (17:15)
[2024-11-17 17:50] LABS: Bedside Glucose 254 mg/dL (74-106)
[2024-11-17 20:00] VITALS: BP 129/67; PULSE 86; RESP 16; TEMP 36.5; O2SAT 97
[2024-11-17] MEDS: QUEtiapine 100 MG Tablet 300 MG PO (21:28)
[2024-11-17 22:21] LABS: Bedside Glucose 223 mg/dL (74-106)
[2024-11-18] MEDS: oxyCODONE 5 MG Tablet PO ×5 (00:43→21:25)
[2024-11-18 02:00] VITALS: BP 134/64; PULSE 75; RESP 16; TEMP 36.6; O2SAT 100
[2024-11-18] MEDS: HYDROmorphone 0.5 MG/0.5 ML SYRINGE IV ×4 (02:19→19:31)
[2024-11-18] MEDS: 0.9% Saline Lock 10 ML Syringe IV ×4 (02:20→19:32)
[2024-11-18] MEDS: busPIRone 15 MG TABLET 30 MG PO ×3 (06:07→21:23)
[2024-11-18 06:33] LABS: Absolute Neutrophil Count 7.2 X10^3/uL (2.0-7.7); Basophil# 0.07 X10^3/uL; Basophil% 0.6 % (0-1); Eosinophil# 0.17 X10^3/uL; Eosinophils% 1.5 % (0-5); Hematocrit 32.9 % (40-54); Hemoglobin 10.9 g/dL (13.0-16.5); Lymphocyte % 23.4 % (19-41); Mean Corp Hgb Conc 33.1 g/dL (32-36); Mean Corpuscular Hgb 32.3 pg (27.0-32.0); Mean Corpuscular Volume 97.6 fL (80-94); Mean Platelet Vol. 12.1 fl (6.2-12.0); Monocyte# 0.85 X10^3/uL; Monocyte% 7.7 % (0-10); NRBC Flagged by Analyzer 0 % (0-5); Neutrophil # 7.21 X10^3/uL (2.7-7.7); Neutrophil % 65.1 % (47-70); Platelet Count 225 K/mm3 (150-450); RBC Distribution Width CV 15.6 % (11.6-14.6); RBC Distribution Width SD 55.2 fl (35.1-43.9); Red Blood Count 3.37 M/mm3 (4.6-6.2); White Blood Count 11.1 K/mm3 (4.4-11.0)
[2024-11-18 06:58] LABS: ALB/GLOB Ratio 0.5 RATIO (0.9-2.4); AST(SGOT) 42 U/L (15-37); Alanine Aminotransfer ALT/SGPT 66 U/L (16-61); Albumin, Serum 2.1 g/dL (3.2-5.0); Alkaline Phosphatase 369 U/L (45-117); Anion Gap 3 (5-15); BUN 14 mg/dL (7-18); BUN/Creat Ratio 26.9 RATIO (10-20); Calcium,Total 8.4 mg/dL (8.5-10.1); Chloride 100 mmol/L (98-107); Creatinine, Serum 0.52 mg/dL (0.70-1.30); EST Glomerular Filtration Rate 169 mL/min (>60); Est Glom Filt Rate - Afr Amer 204 mL/min (>60); Estimated Creatinine Clearance 82.74 ml/min; Globulin 3.9 g/dL (2.2-4.2); Glucose 232 mg/dL (74-106); Magnesium 2.4 mg/dL (1.6-2.6); Phosphorus 1.6 mg/dL (2.5-4.9); Potassium 4.7 mmol/L (3.5-5.1); Sodium Level 129 mmol/L (136-145)
[2024-11-18] MEDS: Insulin Lispro 100 UNIT/ML INSULN.PEN SC ×3 (07:39→17:15)
[2024-11-18] MEDS: Insulin Lispro 100 UNIT/ML INSULN.PEN 7 UNIT SC ×3 (07:40→17:15)
[2024-11-18] MEDS: Potassium Chloride Oral Tablet 20 MEQ 40 MEQ PO (07:42)
[2024-11-18] MEDS: Creon 24,000 unit DR Capsule 1 CAP PO ×3 (07:42→17:17)
[2024-11-18] MEDS: Citalopram 40 MG TABLET PO (07:43)
[2024-11-18] MEDS: Enoxaparin 40 MG/0.4 ML Syringe SC (07:43)
[2024-11-18] MEDS: Magnesium Chloride 64 MG Delay Rel.Tablet 128 MG PO (07:44)
[2024-11-18] MEDS: Senna/Docusate Sodium 1 Tablet PO ×2 (07:45→21:23)
[2024-11-18] MEDS: Insulin Glargine-YFGN 100 UNIT/ML Pen 15 UNIT SC (07:46)
[2024-11-18 07:57] VITALS: BP 130/61; PULSE 74; RESP 16; TEMP 36.9; O2SAT 96
--- NOTE | 2024-11-18 08:19 | PCM.PN.HOSP ---
Reason for Visit Reason for Visit: Diagnoses Other disorders of bilirubin metabolism (11/13/24) Hypo-osmolality and hyponatremia (11/13/24) Acute pancreatitis without necrosis or infection, unspecified (11/13/24) Other chronic pancreatitis (11/13/24) Hyperglycemia, unspecified (11/13/24) Subjective Subjective Patient awaiting to be transferred to [facility] Objective Data Objective Data Vital Signs: Vital Signs Temp Pulse Resp BP Pulse Ox O2 Del Method 98.5 F 74 16 130/61 H 96 Room Air 11/18/24 07:57 11/18/24 07:57 11/18/24 07:57 11/18/24 07:57 11/18/24 07:57 11/18/24 07:57 Oxygen Delivery Method Room Air Weight: 64.4 kg Body Mass Index (BMI) 19.2 Intake & Output: Intake and Output for Last 24 Hours 11/16/24 11/17/24 11/18/24 23:59 23:59 23:59 Intake Total 531.67 / 531.67 950 / 950 Balance 531.67 / 531.67 950 / 950 Lab / Micro Data 11/18/24 05:37 11/18/24 05:37 Labs: Laboratory Results - last 24 hr 11/17/24 08:32: POC Glucose 268 H 11/17/24 11:05: POC Glucose 340 H 11/17/24 17:14: POC Glucose 254 H 11/17/24 21:24: POC Glucose 223 H 11/18/24 05:37: WBC 11.1 H, RBC 3.37 L, Hgb 10.9 L, Hct 32.9 L, MCV 97.6 H D, MCH 32.3 H, MCHC 33.1, RDW Std Deviation 55.2 H, RDW Coeff of Billy 15.6 H, Plt Count 225, MPV 12.1 H, Immature Gran % (Auto) 1.700 H, Neut % (Auto) 65.1, Lymph % (Auto) 23.4, [place] % (Auto) 7.7, Eos % (Auto) 1.5, Baso % (Auto) 0.6, Absolute Neuts (auto) 7.2, Absolute Lymphs (auto) 2.60, Nucleated RBC % 0, Sodium 129 L, Potassium 4.7, Chloride 100, Carbon Dioxide 26.0, Anion Gap 3 L, BUN 14, Creatinine 0.52 L, Estim Creat Clear Calc 82.74, Est GFR (MDRD) Af Amer 204, Est GFR (MDRD) Non-Af 169, BUN/Creatinine Ratio 26.9 H, Glucose 232 H, Calcium 8.4 L, Phosphorus 1.6 L, Magnesium 2.4, Total Bilirubin 3.20 H, AST 42 H, ALT 66 H, Alkaline Phosphatase 369 H, Total Protein 6.0 L, Albumin 2.1 L, Globulin 3.9, Albumin/Globulin Ratio 0.5 L Micro: Microbiology 11/13/24 11:40 Blood Culture (Wb) - Venous Blood Culture - Final Escherichia coli 11/13/24 11:40 Blood Culture (Wb) - Anticubital Left Blood Culture - Preliminary No growth in 48 hours. Physical Exam Narrative GENERAL: cooperative HEENT: Atraumatic; normocephalic EYES; Anicteric, Normal Conjunctiva NECK; supple, normal thyroid, RESPIRATORY: Diminished to auscultation CARDIOVASCULAR: Regular S1 S2, GI: soft, normoactive bowel sounds, : No Renal angle tenderness; EXTREMITIES: No edema, no clubbing, MUSCULOSKELETAL: no muscle wasting NEURO: Awake; no lateralizing signs. SKIN: No Rash PSYCH; Flat affect Assessment & Plan Assessment/Plan (1) Acute on chronic pancreatitis: (2) Hyperbilirubinemia: (3) Hyperglycemia: (4) Acute hyponatremia: PLAN: Plan Patient is a 64-year-old gentleman who presented to the emergency department with abdominal pain. Has underlying history of chronic pancreatitis. Imaging studies demonstrated multiple pancreatic cysts and probably pancreatic pseudocyst. Arrangements were made for patient to be transferred to tertiary care center has been accepted and is currently waiting for a bed 1. Acute on chronic pancreatitis ? Imaging studies demonstrated multiple pancreatic cysts and probably pancreatic pseudocyst. Arrangements were made for patient to be transferred to tertiary care center has been accepted and is currently waiting for a bed 2. Acute transaminitis with hyperbilirubinemia ? CT abdomen pelvis showed extensive pancreatic calcifications consistent with chronic pancreatitis, dilated intrahepatic biliary ducts and common bile ducts, few cystic lesions of pancreas about 2.5 cm, 2.8 cm concerning for pancreatic pseudocyst and mild free fluid in the pelvis. Collateral veins in the splenic hilum, leila hepatis and around GB and borderline splenomegaly concerning for portal hypertension. Consult was placed to GI seen by Dr. Lowery patient underwent ERCP on 11/16/2024. Findings and procedures performed as below Impressions : - The entire main bile duct and entire biliary tree were moderately dilated, with a stone causing an obstruction. - The patient has had a cholecystectomy. - Dilatation of the pancreatic duct in the body of the pancreas, pancreatic duct in the tail of the pancreas and main pancreatic duct was found upstream of a stenosis. - A pancreatic obstruction secondary to a stone was found in the head of the pancreas. - Choledocholithiasis was found. Complete removal was accomplished by biliary sphincterotomy and balloon extraction. - Pancreatic stones were found. Complete removal was accomplished. - A pancreatic sphincterotomy was performed. - The biliary tree was swept. - A biliary sphincterotomy was performed. - The biliary tree was swept. - One temporary stent was placed into the common bile duct. ? 11/18/2024 transferred to [facility] Still pending 3. Severe hyponatremia ? With sodium levels of 116 on admission this was thought to be secondary to hypovolemic hyponatremia as well as pseudohyponatremia from patient profound hyperglycemia on admission. Resolved with IV hydration and correction of patient's hyperglycemia 4. New onset diabetes mellitus type 2 ? Patient presented with severe hyperglycemia hemoglobin A1c was noted to be 9.8 glucose on admission was 922. Patient managed with long-acting insulin with scheduled short acting insulin patient glucose levels have seen improved 5. Bacteremia with E. coli ? Source not clear? Urinary source patient has been managed with ceftriaxone 6. Tobacco dependence ? Counseled on cessation, offered nicotine patch for tobacco cravings 7. Depression with anxiety ? Patient is on citalopram as well as Seroquel at night continue 8. DVT prophylaxis ? On enoxaparin Time spent in the patient's overall evaluation,decision-making process, review of diagnostic data, adjustment of management, discussion with other providers, nursing nursing and ancillary staff involved in patient's care documentation, 38 Minutes Charges/Coding Visit Charges Inpatient E&M: 55870 Subs Hosp L2
--- NOTE | 2024-11-18 08:54 | NURSING ---
[facility] called at this time for bed update. They currently have no beds available and transfer line stated they are at max capacity at this point.
[2024-11-18] MEDS: Ceftriaxone 2 GM in 0.9% Normal Saline (50mL MB+) 50 ML IV (09:49)
[2024-11-18 11:25] LABS: Bedside Glucose 232 mg/dL (74-106)
--- NOTE | 2024-11-18 12:12 | CASEMGMT ---
Per charge nurse, [facility] still remains at max capacity with no anticipated date for trf. Hospitalist aware and may try another facility. Pt is able to trf to any facility with his MCR.
--- NOTE | 2024-11-18 12:30 | CASEMGMT ---
RN CM TRADE ECONOMIST LILLIE?to room to meet with patient for initial transition planning/care coordination assessment. RN LILLIE?introduced self and role at [facility]. Pt voices understanding and consents to assessment?at this time. Pt resting in bed in no distress at this time. Pt is A/O at this time and answers all questions appropriately. Care providers, pharmacy, and demographics verified/updated at this time. Strata: 2 PCP: Dr. Ruiz Specialists: States [facility] [place] and sees Shalini Harris (? spelling) Pharmacy: [facility] Pharmacy benefit: yes Insurance: [facility] A/B Rx benefits: none LNOK: Cleo Goncalves. Son, Uziel. Living arrangements: Lives w/ in one-story home w/no steps to enter. Independent. Pt and share home mgnt tasks. Transportation: Both pt and drive. DME: Has a cane available, but does not use. Does not have a glucometer. New Dx DM this admission. Pt states is interested in information/education on DM and willing to learn/administer his own insulin injections. RNIsabela, states this is being done while pt is in the hospital. Plan: Pt currently awaiting transfer to tertiary hospital, but there are not beds currently available. Pt states, if he ends up discharging home instead of being transferred, he denies having any discharge/home-going needs or concerns. He declines wanting/needing HHC or CCN. He was made aware a script for glucom[place] can also be [place] @ [place], if he ends up going home and that he can take to any location of choice. He was also made aware of OTC options for glucometer. He voices appreciation. Lizz BAUTISTA RN, CM.
[2024-11-18 14:00] VITALS: BP 136/67; PULSE 87; RESP 16; TEMP 36.6; O2SAT 98
[2024-11-18 14:07] LABS: Anti-Centromere B Ab <0.2 AI (0.0-0.9); Anti-Chromatin <0.2 AI (0.0-0.9); Anti-Jo <0.2 AI (0.0-0.9); Anti-Scleroderma-70 AB <0.2 AI (0.0-0.9); Anti-dsDNA Ab 1 IU/mL (0-9); RNP Ab 0.5 AI (0.0-0.9); SJOGREN'S Anti-SS-A test < 0.2 AI (0.0-0.9); SJOGREN'S Anti-SS-B test < 0.2 AI (0.0-0.9); Smith Ab <0.2 AI (0.0-0.9)
[2024-11-18 16:43] LABS: Bedside Glucose 196 mg/dL (74-106)
[2024-11-18] MEDS: Glucerna Shake 120 ML LIQUID PO (17:17)
[2024-11-18 20:00] VITALS: BP 130/73; PULSE 89; RESP 16; TEMP 36.6; O2SAT 99
[2024-11-18] MEDS: QUEtiapine 100 MG Tablet 300 MG PO (21:23)
[2024-11-18 21:55] LABS: Bedside Glucose 126 mg/dL (74-106)
[2024-11-19] MEDS: HYDROmorphone 0.5 MG/0.5 ML SYRINGE IV ×2 (00:51→07:58)
[2024-11-19] MEDS: 0.9% Saline Lock 10 ML Syringe IV (00:51)
[2024-11-19 02:00] VITALS: BP 122/64; PULSE 76; RESP 16; TEMP 36.6; O2SAT 97
[2024-11-19] MEDS: busPIRone 15 MG TABLET 30 MG PO (04:54)
[2024-11-19] MEDS: oxyCODONE 5 MG Tablet PO ×2 (04:54→14:26)
[2024-11-19 06:24] LABS: Absolute Lymphocyte Count 2.28 X10^3/uL (0.83-4.51); Absolute Neutrophil Count 7.4 X10^3/uL (2.0-7.7); Basophil# 0.06 X10^3/uL; Basophil% 0.5 % (0-1); Eosinophil# 0.23 X10^3/uL; Eosinophils% 2.1 % (0-5); Hematocrit 34.5 % (40-54); Hemoglobin 11.6 g/dL (13.0-16.5); Lymphocyte # 2.28 X10^3/ul (0.83-4.51); Lymphocyte % 20.7 % (19-41); Mean Corp Hgb Conc 33.6 g/dL (32-36); Mean Corpuscular Hgb 32.8 pg (27.0-32.0); Mean Corpuscular Volume 97.5 fL (80-94); Monocyte# 0.96 X10^3/uL; Monocyte% 8.7 % (0-10); NRBC Flagged by Analyzer 0 % (0-5); Neutrophil # 7.35 X10^3/uL (2.7-7.7); Neutrophil % 66.6 % (47-70); Platelet Count 248 K/mm3 (150-450); RBC Distribution Width CV 15.1 % (11.6-14.6); RBC Distribution Width SD 54.4 fl (35.1-43.9); Red Blood Count 3.54 M/mm3 (4.6-6.2)
[2024-11-19 06:45] LABS: ALB/GLOB Ratio 0.5 RATIO (0.9-2.4); AST(SGOT) 57 U/L (15-37); Alanine Aminotransfer ALT/SGPT 77 U/L (16-61); Albumin, Serum 2.1 g/dL (3.2-5.0); Alkaline Phosphatase 348 U/L (45-117); Anion Gap 4 (5-15); BUN 13 mg/dL (7-18); Calcium,Total 8.7 mg/dL (8.5-10.1); Chloride 96 mmol/L (98-107); Creatinine, Serum 0.54 mg/dL (0.70-1.30); EST Glomerular Filtration Rate 161 mL/min (>60); Est Glom Filt Rate - Afr Amer 195 mL/min (>60); Estimated Creatinine Clearance 82.74 ml/min; Globulin 4.3 g/dL (2.2-4.2); Glucose 240 mg/dL (74-106); Potassium 4.2 mmol/L (3.5-5.1); Protein, Total 6.4 g/dL (6.4-8.2); Sodium Level 128 mmol/L (136-145)
[2024-11-19 07:46] VITALS: BP 113/64; PULSE 80; RESP 14; TEMP 36.5; O2SAT 98
[2024-11-19] MEDS: Insulin Lispro 100 UNIT/ML INSULN.PEN SC (07:50)
[2024-11-19] MEDS: Insulin Lispro 100 UNIT/ML INSULN.PEN 7 UNIT SC (07:50)
[2024-11-19] MEDS: Citalopram 40 MG TABLET PO (07:52)
[2024-11-19] MEDS: Enoxaparin 40 MG/0.4 ML Syringe SC (07:52)
[2024-11-19] MEDS: Senna/Docusate Sodium 1 Tablet PO (07:53)
[2024-11-19] MEDS: Insulin Glargine-YFGN 100 UNIT/ML Pen 15 UNIT SC (07:54)
--- NOTE | 2024-11-19 08:13 | PN.HOSP_ITS ---
Reason for Visit Reason for Visit: Diagnoses Other disorders of bilirubin metabolism (11/13/24) Hypo-osmolality and hyponatremia (11/13/24) Acute pancreatitis without necrosis or infection, unspecified (11/13/24) Other chronic pancreatitis (11/13/24) Hyperglycemia, unspecified (11/13/24) Subjective Subjective Patient seen had a relatively uneventful night. Transferred to [facility] Still pending. With patient remaining clinically stable requested for repeat CT abdomen and pelvis and if there is improvement in the size of his cyst plan will be for patient to be discharged home to follow-up with GI as outpatient. This was discussed with patient and the and and as per the patient he was previously evaluated at [facility] For pseudocyst they elected not to drain but continue with surveillance. Objective Data Objective Data Vital Signs: Vital Signs Temp Pulse Resp BP Pulse Ox O2 Del Method 97.7 F L 80 14 113/64 98 Room Air 11/19/24 07:46 11/19/24 07:46 11/19/24 07:46 11/19/24 07:46 11/19/24 07:46 11/19/24 07:46 Oxygen Delivery Method Room Air Weight: 64.4 kg Body Mass Index (BMI) 19.2 Intake & Output: Intake and Output for Last 24 Hours 11/17/24 11/18/24 11/19/24 23:59 23:59 23:59 Intake Total 950 / 950 1050 / 1050 Balance 950 / 950 1050 / 1050 Lab / Micro Data 11/19/24 05:56 11/19/24 05:56 Labs: Laboratory Results - last 24 hr 11/16/24 05:45: SUSAN-1 Antibody <0.2, SS-A/Ro IgG Antibody < 0.2, SS-B/La IgG Antibody < 0.2, Sm ([place]) Antibody <0.2, INSTRUCTIONAL MATERIAL DIRECTOR Antibody 0.5, Scl-70 Scleroderma Ab <0.2, Double Strand DNA Ab 1, Antichromatin Antibodies <0.2, Centromere B Antibody <0.2 11/18/24 11:06: POC Glucose 232 H 11/18/24 16:03: POC Glucose 196 H 11/18/24 21:22: POC Glucose 126 H 11/19/24 05:56: WBC 11.0, RBC 3.54 L, Hgb 11.6 L, Hct 34.5 L, MCV 97.5 H, MCH 32.8 H, MCHC 33.6, RDW Std Deviation 54.4 H, RDW Coeff of Billy 15.1 H, Plt Count 248, MPV 12.0, Immature Gran % (Auto) 1.400 H, Neut % (Auto) 66.6, Lymph % (Auto) 20.7, [place] % (Auto) 8.7, Eos % (Auto) 2.1, Baso % (Auto) 0.5, Absolute Neuts (auto) 7.4, Absolute Lymphs (auto) 2.28, Nucleated RBC % 0, Sodium 128 L, Potassium 4.2, Chloride 96 L, Carbon Dioxide 28.0, Anion Gap 4 L, BUN 13, C reatinine 0.54 L, Estim Creat Clear Calc 82.74, Est GFR (MDRD) Af Amer 195, Est GFR (MDRD) Non-Af 161, BUN/Creatinine Ratio 24.0 H, Glucose 240 H, Calcium 8.7, Total Bilirubin 3.20 H, AST 57 H, ALT 77 H, Alkaline Phosphatase 348 H, Total Protein 6.4, Albumin 2.1 L, Globulin 4.3 H, Albumin/Globulin Ratio 0.5 L Micro: Microbiology 11/13/24 11:40 Blood Culture (Wb) - Venous Blood Culture - Final Escherichia coli 11/13/24 11:40 Blood Culture (Wb) - Anticubital Left Blood Culture - Final No growth in 5 days. Physical Exam Narrative GENERAL: cooperative HEENT: Atraumatic; normocephalic EYES; Anicteric, Normal Conjunctiva NECK; supple, normal thyroid, RESPIRATORY: Diminished to auscultation CARDIOVASCULAR: Regular S1 S2, GI: soft, normoactive bowel sounds, : No Renal angle tenderness; EXTREMITIES: No edema, no clubbing, MUSCULOSKELETAL: no muscle wasting NEURO: Awake; no lateralizing signs. SKIN: No Rash PSYCH; Flat affect Assessment & Plan Assessment/Plan (1) Acute on chronic pancreatitis: (2) Hyperbilirubinemia: (3) Hyperglycemia: (4) Acute hyponatremia: PLAN: Plan Patient is a 64-year-old gentleman who presented to the emergency department with abdominal pain. Has underlying history of chronic pancreatitis. Imaging studies demonstrated multiple pancreatic cysts and probably pancreatic pseudocyst. Arrangements were made for patient to be transferred to tertiary care center has been accepted and is currently waiting for a bed 1. Acute on chronic pancreatitis ? Imaging studies demonstrated multiple pancreatic cysts and probably pancreatic pseudocyst. Arrangements were made for patient to be transferred to tertiary [facility] has been accepted and is currently waiting for a bed 2. Acute transaminitis with hyperbilirubinemia ? CT abdomen pelvis showed extensive pancreatic calcifications consistent with chronic pancreatitis, dilated intrahepatic biliary ducts and common bile ducts, few cystic lesions of pancreas about 2.5 cm, 2.8 cm concerning for pancreatic pseudocyst and mild free fluid in the pelvis. Collateral veins in the splenic hilum, leila hepatis and around GB and borderline splenomegaly concerning for portal hypertension. Consult was placed to GI seen by Dr. Lowery patient underwent ERCP on 11/16/2024. Findings and procedures performed as below Impressions : - The entire main bile duct and entire biliary tree were moderately dilated, with a stone causing an obstruction. - The patient has had a cholecystectomy. - Dilatation of the pancreatic duct in the body of the pancreas, pancreatic duct in the tail of the pancreas and main pancreatic duct was found upstream of a stenosis. - A pancreatic obstruction secondary to a stone was found in the head of the pancreas. - Choledocholithiasis was found. Complete removal was accomplished by biliary sphincterotomy and balloon extraction. - Pancreatic stones were found. Complete removal was accomplished. - A pancreatic sphincterotomy was performed. - The biliary tree was swept. - A biliary sphincterotomy was performed. - The biliary tree was swept. - One temporary stent was placed into the common bile duct. ? 11/18/2024 transferred to [facility] Still pending ? 11/19/2024: Patient seen had a relatively uneventful night. Transferred to [facility] Still pending. With patient remaining clinically stable requested for repeat CT abdomen and pelvis and if there is improvement in the size of his cyst plan will be for patient to be discharged home to follow-up with GI as outpatient. This was discussed with patient and the and and as per the patient he was previously evaluated at [facility] For pseudocyst they elected not to drain but continue with surveillance. 3. Severe hyponatremia ? With sodium levels of 116 on admission this was thought to be secondary to hypovolemic hyponatremia as well as pseudohyponatremia from patient profound hyperglycemia on admission. Resolved with IV hydration and correction of patient's hyperglycemia 4. New onset diabetes mellitus type 2 ? Patient presented with severe hyperglycemia hemoglobin A1c was noted to be 9.8 glucose on admission was 922. Patient managed with long-acting insulin with scheduled short acting insulin patient glucose levels have seen improved 5. Bacteremia with E. coli ? Source not clear? Urinary source patient has been managed with ceftriaxone 6. Tobacco dependence ? Counseled on cessation, offered nicotine patch for tobacco cravings 7. Depression with anxiety ? Patient is on citalopram as well as Seroquel at night continue 8. DVT prophylaxis ? On enoxaparin Time spent in the patient's overall evaluation,decision-making process, review of diagnostic data, adjustment of management, discussion with other providers, nursing nursing and ancillary staff involved in patient's care documentation, 36 Minutes Charges/Coding Visit Charges Inpatient E&M: 52965 [facility] Hosp L2
--- NOTE | 2024-11-19 08:13 | CT_ITS ---
STUDY: CT ABDOMEN AND PELVIS WITH CONTRAST REASON FOR EXAM: Male, 64 years old. Pancreatic pseudocyst RADIATION DOSAGE (If Supplied By Facility): CTDIvol = ( 11.52 ) mGy, DLP = ( 684.50 ) mGycm TECHNIQUE: Transaxial images were obtained from the dome of the diaphragm to the symphysis pubis without oral contrast. ml of Gastrografin and amp; 100mL Isovue-370 contrast was administered. Sagittal and coronal images were reconstructed. Individualized dose optimization techniques were used for this CT. COMPARISON: CT of abdomen and pelvis dated November 13, 2024 FINDINGS: * Newly placed CBD stent since the prior study without complications. Interval appearance of small amounts of intrahepatic biliary air related to recent placement of the CBD stent * Diffuse fatty infiltration of the liver. No cirrhosis or masses or liver infarction. * Patent portal vein. Portal vein hypertension is present with numerous venous varices throughout the abdomen * Contracted gallbladder containing a small stone. No pericholecystic fluid or inflammation is seen. * Redemonstration of sequela chronic pancreatitis with significant ductal calcifications, diffuse atrophy of the pancreas, and absence of the most distal aspect of the tail of the pancreas either due to prior resection or parenchymal absorption or fatty atrophy. * Previously seen distended duct at the most distal aspect of the body of the pancreas is reduced in diameter but now associated with small amounts of inflammatory stranding and phlegmon most likely due to recent pancreatitis or cyst rupture. 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 Second of the pancreas is adherent to the posterior wall of the duodenal jejunal junction in the left upper quadrant measuring 3.88 x 2.18 cm in diameter which is smaller than the prior measurement of 4.02 x 3.58 cm in diameter. There are chronic interstitial fibrotic changes of the lung bases. The visualized portions of the heart are within normal limits. There are multiple benign calcified granulomata of the spleen. Normal bilateral adrenal glands. Normal right kidney. Normal left kidney. Normal visualized stomach. Normal small intestine. Normal colon. The appendix is visualized and appears normal. There is diffuse atherosclerotic calcification of the abdominal aorta, without a demonstrated aneurysm. Normal inferior vena cava. Normal retroperitoneum. Normal urinary bladder. Normal abdominal wall. There are diffuse degenerative changes of the visualized lumbar spine. CT/Abdomen/Pelvis WITH Contrast IMPRESSION: 1. Previously seen distended duct at the most distal aspect of the body of the pancreas is reduced in diameter but now associated with small amounts of inflammatory stranding and phlegmon most likely due to recent pancreatitis or cyst rupture. 2. 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 Second of the pancreas is adherent to the posterior wall of the duodenal jejunal junction in the left upper quadrant measuring 3.88 x 2.18 cm in diameter which is smaller than the prior measurement of 4.02 x 3.58 cm in diameter. Electronically Signed: Avery Goncalves MD at 12:52 EST ,
[2024-11-19 08:24] LABS: Bedside Glucose 245 mg/dL (74-106)
--- NOTE | 2024-11-19 08:40 | NURSING ---
[facility] called, still no beds available for transfer at this time.
--- NOTE | 2024-11-19 10:50 | NURSING ---
PT OFF UNIT VIA W/C FOR CT
--- NOTE | 2024-11-19 11:08 | NURSING ---
PT HAS RETURNED FROM CT. IRRITATED, WANTS TO GO HOME, DOES NOT WANT TO TRANSFER TO [facility]. REFUSING ATB, WANTS [facility] DC'D. APOLOGETIC TO THIS NURSE, IM NOT TAKING IT OUT ON YOU, IM JUST IRRITATED. I'VE BEEN HERE FOR 7 DAYS AND THEY AREN'T DOING A FUCKING THING. DR CARBALLO NOTIFIED AND REPLIED WAITING ON CT RESULTS
--- NOTE | 2024-11-19 12:47 | CASEMGMT ---
KATHERINE CM into pt room, pt sitting up in bed in no distressed dressed. Pt wants to leave the hospital. Provided pt with a rx for a BGM with testing supplies. Pt is aware that the physician wants him to test his blood sugar twice a day. Pt verbalized understanding. Pt is aware where he can obtain BGM. Pt states he has been giving himself his own insulin at [facility]. CT pending for transfer or possible dc this date per hospitalist in rounds.
--- NOTE | 2024-11-19 13:08 | PCM.CONS.GEN ---
Assessment & Plan Assessment/Plan (1) Acute on chronic pancreatitis: PLAN: E. coli bacteremia most likely from the biliary source. Status post ERCP. If patient does go home oral levofloxacin 500 mg daily for 7 days will be reasonable. I did write a prescription for oral levofloxacin. HPI Consult Data Date of Consult: 11/19/24 HPI Narrative Reason for Consultation: E. coli bacteremia HPI Narrative: YARELY GONCALVES, is a 64 M who presents past medical history of anxiety/depression and tobacco abuse who presented earlier this week with nausea vomiting abdominal pain. Interestingly admission blood cultures are growing E. coli. Patient was seen by GI and underwent ERCP during this admission. Records reviewed. Overall states that feeling better. No further nausea or vomiting. No abdominal pain. No fevers. Currently on ceftriaxone. Sensitivities of the E. coli blood culture pathogen reviewed. Denies any diarrhea. [facility] Medical History Marijuana use Smoker COPD (chronic obstructive pulmonary disease) Anxiety Neck fracture (~1994) Pneumonia due to COVID-19 virus Depression Home Medications ?Medication ?Instructions ?Recorded ?Last Taken ?Type buspirone 30 mg tablet 30 mg PO TID ANXIETY 11/01/20 04/02/21 History citalopram 40 mg tablet 80 mg PO DAILY depression 04/02/21 04/02/21 History quetiapine 400 mg tablet (Seroquel) 400 mg PO QHS mood 04/02/21 04/01/21 History Allergy/AdvReac Type Severity Reaction Status Date / Time No Known Allergies Allergy Verified 11/13/24 08:37 Surgical History History of tonsillectomy and adenoidectomy Social History Smoking Status: Heavy Smoker (>10/day) substance use type: does not use ROS ROS Narrative As stated in history of present illness others negative Physical Exam Narrative Alert responsive does not appear toxic head and neck exams unremarkable lungs are clear heart exam S1-S2 abdomen soft no peritoneal signs Lab / Micro Data 11/19/24 05:56 11/19/24 05:56 Labs: Laboratory Results - last 24 hr 11/16/24 05:45: SUSAN-1 Antibody <0.2, SS-A/Ro IgG Antibody < 0.2, SS-B/La IgG Antibody < 0.2, Sm (Dupree) Antibody <0.2, MANAGER REGULATORY Antibody 0.5, Scl-70 Scleroderma Ab <0.2, Double Strand DNA Ab 1, Antichromatin Antibodies <0.2, Centromere B Antibody <0.2 11/18/24 16:03: POC Glucose 196 H 11/18/24 21:22: POC Glucose 126 H 11/19/24 05:56: WBC 11.0, RBC 3.54 L, Hgb 11.6 L, Hct 34.5 L, MCV 97.5 H, MCH 32.8 H, MCHC 33.6, RDW Std Deviation 54.4 H, RDW Coeff of Billy 15.1 H, Plt Count 248, MPV 12.0, Immature Gran % (Auto) 1.400 H, Neut % (Auto) 66.6, Lymph % (Auto) 20.7, Gibson % (Auto) 8.7, Eos % (Auto) 2.1, Baso % (Auto) 0.5, Absolute Neuts (auto) 7.4, Absolute Lymphs (auto) 2.28, Nucleated RBC % 0, Sodium 128 L, Potassium 4.2, Chloride 96 L, Carbon Dioxide 28.0, Anion Gap 4 L, BUN 13, Creatinine 0.54 L, Estim Creat Clear Calc 82.74, Est GFR (MDRD) Af Amer 195, Est GFR (MDRD) Non-Af 161, BUN/Creatinine Ratio 24.0 H, Glucose 240 H, Calcium 8.7, Total Bilirubin 3.20 H, AST 57 H, ALT 77 H, Alkaline Phosphatase 348 H, Total Protein 6.4, Albumin 2.1 L, Globulin 4.3 H, Albumin/Globulin Ratio 0.5 L 11/19/24 07:49: POC Glucose 245 H Micro: Microbiology 11/13/24 11:40 Blood Culture (Wb) - Venous Blood Culture - Final Escherichia coli 11/13/24 11:40 Blood Culture (Wb) - Anticubital Left Blood Culture - Final No growth in 5 days. Imaging Radiology Impression Abdomen/Pelvis CT 11/19/24 08:13 IMPRESSION: 1. Previously seen distended duct at the most distal aspect of the body of the pancreas is reduced in diameter but now associated with small amounts of inflammatory stranding and phlegmon most likely due to recent pancreatitis or cyst rupture. 2. 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 Second of the pancreas is adherent to the posterior wall of the duodenal jejunal junction in the left upper quadrant measuring 3.88 x 2.18 cm in diameter which is smaller than the prior measurement of 4.02 x 3.58 cm in diameter. Electronically Signed: Avery Goncalves MD at 12:52 EST ,
--- NOTE | 2024-11-19 13:42 | PCM.DC.SUM ---
Providers Date of Admission: 11/13/24 Date of Discharge: 11/19/24 Primary Care Physician: Dr. Sameer Ruiz MD Consultations 11/15/24 12:27 Consult: Gastroenterology Routine Consulting Provider: [facility] Reason for Consult: Chronic pancreatitis, severe pain. Pseudopancreatic cyst multiple. EMERGENT Consult: No Notified: Yes Date Notified: 11/15/24 Time Notified: 12:27 Method of Notification: Verbal 11/16/24 16:32 Consult: Infectious Disease Routine Consulting Provider: Bennett Sands Reason for Consult: E coli bacteremia, chr pancratitis with abd pain EMERGENT Consult: No Notified: Yes Date Notified: 11/16/24 Time Notified: 16:32 Method of Notification: Text Reason For Visit: WORSENING CHRONIC PANCREATITIS W/NEW Diagnosis Discharge Diagnosis (1) Acute on chronic pancreatitis: Status: Chronic Code(s): K85.90 - Acute pancreatitis without necrosis or infection, unspecified; K86.1 - Other chronic pancreatitis Plan Patient is a 64-year-old gentleman who presented to the emergency department with abdominal pain. Has underlying history of chronic pancreatitis. Imaging studies demonstrated multiple pancreatic cysts and probably pancreatic pseudocyst. Arrangements were made for patient to be transferred to tertiary care center has been accepted and is currently waiting for a bed 1. Acute on chronic pancreatitis ? Imaging studies demonstrated multiple pancreatic cysts and probably pancreatic pseudocyst. Arrangements were made for patient to be transferred to tertiary care center has been accepted and is currently waiting for a bed 2. Acute transaminitis with hyperbilirubinemia ? CT abdomen pelvis showed extensive pancreatic calcifications consistent with chronic pancreatitis, dilated intrahepatic biliary ducts and common bile ducts, few cystic lesions of pancreas about 2.5 cm, 2.8 cm concerning for pancreatic pseudocyst and mild free fluid in the pelvis. Collateral veins in the splenic hilum, leila hepatis and around GB and borderline splenomegaly concerning for portal hypertension. Consult was placed to GI seen by Dr. Lowery patient underwent ERCP on 11/16/2024. Findings and procedures performed as below Impressions : - The entire main bile duct and entire biliary tree were moderately dilated, with a stone causing an obstruction. - The patient has had a cholecystectomy. - Dilatation of the pancreatic duct in the body of the pancreas, pancreatic duct in the tail of the pancreas and main pancreatic duct was found upstream of a stenosis. - A pancreatic obstruction secondary to a stone was found in the head of the pancreas. - Choledocholithiasis was found. Complete removal was accomplished by biliary sphincterotomy and balloon extraction. - Pancreatic stones were found. Complete removal was accomplished. - A pancreatic sphincterotomy was performed. - The biliary tree was swept. - A biliary sphincterotomy was performed. - The biliary tree was swept. - One temporary stent was placed into the common bile duct. ? 11/18/2024 transferred to [facility] Still pending ? 11/19/2024: Patient seen had a relatively uneventful night. Transferred to [facility] Still pending. With patient remaining clinically stable requested for repeat CT abdomen and pelvis and if there is improvement in the size of his cyst plan will be for patient to be discharged home to follow-up with GI as outpatient. This was discussed with patient and the and and as per the patient he was previously evaluated at [facility] For pseudocyst they elected not to drain but continue with surveillance. CT of the abdomen demonstrated . Previously seen distended duct at the most distal aspect of the body of the pancreas is reduced in diameter but now associated with small amounts of inflammatory stranding and phlegmon most likely due to recent pancreatitis or cyst rupture. 2. 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 Second of the pancreas is adherent to the posterior wall of the duodenal jejunal junction in the left upper quadrant measuring 3.88 x 2.18 cm in diameter which is smaller than the prior measurement of 4.02 x 3.58 cm in diameter. Plan was for patient to have been transferred to [facility] However patient stated that he had previously been to [facility] And they elected not to drain the cyst. With symptoms having improved patient requested to be discharged home to follow-up with GI as outpatient. Patient was instructed to return to the emergency department if symptoms worsen at home developed fever and persistent nausea and vomiting 3. Severe hyponatremia ? With sodium levels of 116 on admission this was thought to be secondary to hypovolemic hyponatremia as well as pseudohyponatremia from patient profound hyperglycemia on admission. Resolved with IV hydration and correction of patient's hyperglycemia 4. New onset diabetes mellitus type 2 ? Patient presented with severe hyperglycemia hemoglobin A1c was noted to be 9.8 glucose on admission was 922. Patient managed with long-acting insulin with scheduled short acting insulin patient glucose levels have seen improved 5. Bacteremia with E. coli ? Source not clear? Urinary source patient has been managed with ceftriaxone ? Patient was seen in consultation by ID prescription written on discharge 6. Tobacco dependence ? Counseled on cessation, offered nicotine patch for tobacco cravings 7. Depression with anxiety ? Patient is on citalopram as well as Seroquel at night continue 8. DVT prophylaxis ? On enoxaparin Time spent in the patient's overall evaluation,decision-making process, review of diagnostic data, adjustment of management, discussion with other providers, nursing nursing and ancillary staff involved in patient's care documentation, 36 Minutes Medications at Discharge Home Medications buspirone 30 mg tablet 30 mg PO TID ANXIETY 11/01/20 citalopram 40 mg tablet 80 mg PO DAILY depression 04/02/21 quetiapine 400 mg tablet (Seroquel) 400 mg PO QHS mood 04/02/21 insulin glargine-yfgn 100 unit/mL (3 mL) subcutaneous pen 20 unit (0.2 mL) subcut DAILY #300 mL 11/19/24 levofloxacin 500 mg tablet 500 mg PO DAILY 7 days #7 tabs 11/19/24 zuxwrv-tvwwootz-owanyks 24,000-76,000-120,000 unit capsule,delayed rel (Creon) 1 cap PO TIDCM #180 caps 11/19/24 sennosides 8.6 mg-docusate sodium 50 mg tablet (Stimulant Laxative Plus) 1 tab PO BID #60 tabs 11/19/24 Physical Exam Narrative GENERAL: cooperative HEENT: Atraumatic; normocephalic EYES; Anicteric, Normal Conjunctiva NECK; supple, normal thyroid, RESPIRATORY: Diminished to auscultation CARDIOVASCULAR: Regular S1 S2, GI: soft, normoactive bowel sounds, : No Renal angle tenderness; EXTREMITIES: No edema, no clubbing, MUSCULOSKELETAL: no muscle wasting NEURO: Awake; no lateralizing signs. SKIN: No Rash PSYCH; Flat affect Weight / BMI Weight Weight: 64.4 kg Body Mass Index (BMI) 19.2 ABG / Lab / Microbiology Data 11/19/24 05:56 11/19/24 05:56 Laboratory: Laboratory Results - last 24 hr 11/16/24 05:45: SUSAN-1 Antibody <0.2, SS-A/Ro IgG Antibody < 0.2, SS-B/La IgG Antibody < 0.2, Sm (Dupree) Antibody <0.2, PATIENT SERVICES COORDINATOR Antibody 0.5, Scl-70 Scleroderma Ab <0.2, Double Strand DNA Ab 1, Antichromatin Antibodies <0.2, Centromere B Antibody <0.2 11/18/24 16:03: POC Glucose 196 H 11/18/24 21:22: POC Glucose 126 H 11/19/24 05:56: WBC 11.0, RBC 3.54 L, Hgb 11.6 L, Hct 34.5 L, MCV 97.5 H, MCH 32.8 H, MCHC 33.6, RDW Std Deviation 54.4 H, RDW Coeff of Billy 15.1 H, Plt Count 248, MPV 12.0, Immature Gran % (Auto) 1.400 H, Neut % (Auto) 66.6, Lymph % (Auto) 20.7, Sawyer % (Auto) 8.7, Eos % (Auto) 2.1, Baso % (Auto) 0.5, Absolute Neuts (auto) 7.4, Absolute Lymphs (auto) 2.28, Nucleated RBC % 0, Sodium 128 L, Potassium 4.2, Chloride 96 L, Carbon Dioxide 28.0, Anion Gap 4 L, BUN 13, Creatinine 0.54 L, Estim Creat Clear Calc 82.74, Est GFR (MDRD) Af Amer 195, Est GFR (MDRD) Non-Af 161, BUN/Creatinine Ratio 24.0 H, Glucose 240 H, Calcium 8.7, Total Bilirubin 3.20 H, AST 57 H, ALT 77 H, Alkaline Phosphatase 348 H, Total Protein 6.4, Albumin 2.1 L, Globulin 4.3 H, Albumin/Globulin Ratio 0.5 L 11/19/24 07:49: POC Glucose 245 H Microbiology: Microbiology 11/13/24 11:40 Blood Culture (Wb) - Venous Blood Culture - Final Escherichia coli 11/13/24 11:40 Blood Culture (Wb) - Anticubital Left Blood Culture - Final No growth in 5 days. Radiography Diagnostic Testing: Radiology Impression Abdomen/Pelvis CT 11/19/24 08:13 IMPRESSION: 1. Previously seen distended duct at the most distal aspect of the body of the pancreas is reduced in diameter but now associated with small amounts of inflammatory stranding and phlegmon most likely due to recent pancreatitis or cyst rupture. 2. 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 Second of the pancreas is adherent to the posterior wall of the duodenal jejunal junction in the left upper quadrant measuring 3.88 x 2.18 cm in diameter which is smaller than the prior measurement of 4.02 x 3.58 cm in diameter. Electronically Signed: Avery Goncalves MD at 12:52 EST Reading Location ID and State: [facility] / [place] , Service support , D/C Instructions Discharge Diet: 1800 Calorie Control Diet Discharge Activity: Return to Normal Activity Call your doctor if you observe: Fever of 101 or Higher, Shortness of breath, Fainting spells and Chest pain DC O2, CPAP, BIPAP Needs Home O2 Discharge instructions: No Meaningful Use Info Meaningful Use Meaningful Use Diagnoses (Choose all that apply): None applicable Ischemic Stroke Statin Dosing Therapy Reference: STATIN DOSE THERAPY REFERENCE: * Patients > 75 years receive moderate or high dose statin therapy. * Patients 75 years or YOUNGER should receive HIGH intensity statin dose unless contraindicated. You will be required to document reason for non-treatment if statin daily dose does not meet guidelines. HIGH DOSE STATIN THERAPY DAILY Atorvastatin > than or = to 40 mg Rosuvastatin > than or = to 20 mg Amlodipine + Atorvastatin > than or = to 2.5/40 mg Ezetimibe + Simvastatin 10/80 mg Simvastatin 80mg Discharge Plan Admission Admit Date/Time: 11/13/24 15:02 Attending Provider: Thanh Flores Primary Care Provider: Sameer Ruiz Consulting Providers: Sacha Hyde; Bennett Sands; Berto Carlson Discharge Orders/Prescriptions Prescriptions: New insulin glargine-yfgn 100 unit/mL (3 mL) Insulin Pen 20 unit subcut DAILY Qty: 300 0RF sennosides-docusate sodium [Stimulant Laxative Plus] 8.6-50 mg Tablet 1 tab PO BID Qty: 60 0RF Creon 24,000-76,000 -120,000 unit Capsule,Delayed Release(Dr/Ec) 1 cap PO TIDCM Qty: 180 0RF levofloxacin 500 mg tablet 500 mg PO DAILY 7 Days Qty: 7 0RF Continued buspirone 30 MG tablet 30 mg PO TID citalopram 40 mg Tablet 80 mg PO DAILY quetiapine [Seroquel] 400 mg Tablet 400 mg PO QHS Referrals / Follow Up: Sameer Ruiz MD [Primary Care Provider] - Within 1 Week FriendDarryl DO [Med Staff - Active Staff] - Within 2 Weeks Disposition Disposition (needs filled in before D/C Order can be placed): Home, Self Care Charges/Coding Visit Charges Inpatient E&M: 23281 Disch Hosp >30min
--- NOTE | 2024-11-19 13:45 | CASEMGMT ---
Addendum entered by Patty Simpson 11/19/24 14:01: He is also aware that pt needs pen needles ordered as well. Original Note: Received rx from for po atb for pt. given rx and he will enter on dc.
[2024-11-19 13:48] VITALS: BP 119/65; PULSE 89; RESP 16; TEMP 36.8; O2SAT 98
[2024-11-19 14:52] LABS: Bedside Glucose 87 mg/dL (74-106)
[2024-11-21 03:08] LABS: Albumin 2.2 g/dL (2.9-4.4); Alpha-1-Globulins 0.3 g/dL (0.0-0.4); Alpha-2-Globulins 0.8 g/dL (0.4-1.0); Carbohydrate AG 19-9 < 2 U/mL (0-35); Cytoplasmic Ab (C-ANCA) <1:20 titer (Neg:<1:20); Deamidated Gliadin IgA 10 units (0-19); Deamidated Gliadin IgG 4 units (0-19); Endomysial Antibody IgA Negative (Negative); Gamma Globulin 1.2 g/dL (0.4-1.8); IMMUNOFIXATION RESULT,S Comment: (.); IgG, Quant 982 mg/dL (603-1613); Immunoglobulin A 473 mg/dL (61-437); Immunoglobulin E 2106 IU/mL (6-495); Immunoglobulin G, Subclass 1 493 mg/dL (248-810); Immunoglobulin G, Subclass 2 197 mg/dL (130-555); Immunoglobulin G, Subclass 3 27 mg/dL (15-102); Immunoglobulin G, Subclass 4 96 mg/dL (2-96); Immunoglobulin M 284 mg/dL (20-172); PROEL- TOTAL PROTEIN 5.5 g/dL (6.0-8.5); Perinuclear Ab (P-ANCA) <1:20 titer (Neg:<1:20); t-Transglutaminase IgA <2 U/mL (0-3)
[2024-11-23 09:07] LABS: Anti-Cardiolipin Ab, IgG, Qn < 9 GPL U/mL (0-14); Anti-Cardiolipin Ab, IgM, Qn 13 MPL U/mL (0-12); Anti-Thrombin 3 AG, Immunol 71 % (72-124); Antithrombin 3 Function 84 % (75-135); Beta-2-Glycoprotein I IgA <9 (0-25); Beta-2-Glycoprotein I IgG <9 (0-20); Beta-2-Glycoprotein I IgM 13 (0-32); Protein C Antigen 64 % (60-150); Protein C, Functional 77 % (73-180)
== END 2024-11-19 14:28 | disposition home or self-care (01) | DRG 438 ==
LOC: ED 14:58 → MS3 15:34
PROVIDERS: Internal Medicine; Internal Medicine Gastroenterology; Admitting Provider Hospitalist; Emergency Provider Emergency Medicine; PCP Family Medicine; Visit Provider Internal Medicine
PROC: 0FC98ZZ Extirpation of Matter from Common Bile Duct, Via Natural or Artificial Opening Endoscopic (ICD-10-PCS; CPT 43260; principal; 2024-11-16 15:40)
DX: K85.91 Acute pancreatitis with uninfected necrosis, unspecified (principal); J18.9 Pneumonia, unspecified organism; R78.81 Bacteremia; K80.51 Calculus of bile duct without cholangitis or cholecystitis with obstruction; K76.6 Portal hypertension; E87.1 Hypo-osmolality and hyponatremia; K86.3 Pseudocyst of pancreas; E88.09 Other disorders of plasma-protein metabolism, not elsewhere classified; K83.8 Other specified diseases of biliary tract; J44.9 Chronic obstructive pulmonary disease, unspecified; E11.65 Type 2 diabetes mellitus with hyperglycemia; F32.A Depression, unspecified; K86.1 Other chronic pancreatitis; F17.210 Nicotine dependence, cigarettes, uncomplicated; F41.8 Other specified anxiety disorders; Z86.16 Personal history of COVID-19; B96.20 Unspecified Escherichia coli [E. coli] as the cause of diseases classified elsewhere; Z71.6 Tobacco abuse counseling
CPT/HCPCS: 36415; 71046; 74177; 74330; 76000; 80048; 80053; 80076; 81240; 81241; 82784; 82785; 82787; 82962; 83036; 83516; 83615; 83690; 83735; 84100; 84165; 85025; 85027; 85300; 85301; 85302; 85303; 85652; 86037; 86140; 86146; 86147; 86225; 86235; 86255; 86301; 86334; 87040; 87077; 87186; 93005; 94668; 97802; 97803; 99284; 99406; Q9967; A4216; J0696; J2405